=== PATIENT | male | born 1955 | race Caucasian/White ===

== ENCOUNTER → 2018-07-20 09:12 | Outpatient (CLI) | payer OTHER, SELFPAY ==
--- NOTE | 2018-07-20 | DI.RAD.S_ITS ---
PROCEDURE: XR LUMBAR SPINE 2-3V INDICATIONS: LOWER BACK PAIN TECHNIQUE: 3 views of the lumbar spine were acquired. COMPARISON: None. FINDINGS: Bones: 5 [id number] vertebrae are present. There is mild levocurvature; otherwise normal bony alignment. No vertebral body compression fractures. No suspicious bony lesions. There is degenerative disc disease in lumbar spine, moderate to severe L3 L4, mild to moderate at L2-L3 and L5-S1. Soft tissues: Overlying bowel gas pattern is normal. No suspicious soft tissue calcifications. IMPRESSION: Degenerative disc disease in lumbar spine. Dictated by: Dionicio Muñoz M.D. on 07/20/2018 at 12:49 Approved by: Dionicio Muñoz M.D. on 07/20/2018 at 12:52
== END ==
PROVIDERS: PCP Internal Medicine; Visit Provider Chiropractor
DX: M54.5 Low back pain (principal); M51.36 Other intervertebral disc degeneration, lumbar region; M51.37 Other intervertebral disc degeneration, lumbosacral region
CPT/HCPCS: 72100

== ENCOUNTER → 2019-06-13 08:24 | Outpatient (CLI) | payer OTHER, SELFPAY ==
[2019-06-13 09:43] LABS: Add Manual Diff / Slide Review NO; Basophils Absolute Auto 0 /uL (0-100); Basophils Percent Auto 0.9 % (0-2); Eosinophils Absolute Auto 200 /uL (0-450); Eosinophils Percent Auto 3.2 % (2-4); Hematocrit 46.4 % (41-53); Lymphocytes Absolute Auto 2200 /uL (1100-4500); Lymphocytes Percent Auto 38.9 % (25-40); Mean Corpuscular HGB Conc 34.4 % (30-36); Mean Corpuscular Hemoglobin 30.3 PG (26-34); Monocytes Absolute Auto 500 /uL (0-900); Monocytes Percent Auto 8.8 % (3-14); Neutrophils Absolute Auto 2800 /uL (1500-7000); Neutrophils Percent Auto 48.2 % (50-75); Platelet Count 254 X10^3/uL (150-400); Red Blood Cell Count 5.27 X10^6/uL (4.5-5.9); Red Cell Distribution Width 13.5 % (11.6-14.8); White Blood Cell Count 5.8 X10^3/uL (4.5-11.0)
[2019-06-13 09:58] LABS: Hemoglobin A1C% w Est Avg Glu 5.3 % (4.0-6.0)
[2019-06-13 10:01] LABS: Alanine Aminotransferase 30 IU/L (21-72); Albumin 4.4 g/dL (3.5-5.0); Albumin Globulin Ratio 1.5 (1.0-2.8); Alkaline Phosphatase 62 U/L (38-126); Aspartate Aminotransferase 36 IU/L (17-59); BUN Creatinine Ratio 25.7 (6-22); Blood Urea Nitrogen 18 mg/dL (9-20); Calcium 8.9 mg/dL (8.4-10.2); Carbon Dioxide 29 mmol/L (22-32); Chloride 102 mmol/L (98-107); Cholesterol 276 mg/dL (140-199); Estimated Glomerular Filt Rate > 60.0 mL/min (>60); Globulin 2.9 g/dL (1.7-4.1); Glucose 97 mg/dL (80-110); HDL Cholesterol 35 mg/dL (40-60); HEMOLYSIS < 15 (0-50); LDL Cholesterol Calculated 206 mg/dL (<100); Potassium 3.7 mmol/L (3.4-5.1); Sodium 141 mmol/L (137-145); Total Protein 7.3 g/dL (6.3-8.2); Triglycerides 176 mg/dL (35-150)
== END ==
PROVIDERS: PCP Internal Medicine; Visit Provider Naturopath
DX: Z00.00 Encounter for general adult medical examination without abnormal findings (principal); E88.81 Metabolic syndrome and other insulin resistance
CPT/HCPCS: 36415; 80053; 80061; 83036; 85025

== ENCOUNTER 2020-06-21 09:08 | Emergency (ER) | payer OTHER, SELFPAY ==
[2020-06-21] VITALS (8 sets, daily range): BP systolic 140–187; BP diastolic 89–100; PULSE 53–66; RESP 12–20; TEMP 36.6–37.9; O2SAT 96–99; BMI 33.5
--- NOTE | 2020-06-21 09:16 | ED_ITS ---
HPI - General Adult General Chief complaint: Syncope Stated complaint: Syncope Time Seen by Provider: 06/21/20 09:08 Source: patient and EMS Mode of arrival: EMS Limitations: no limitations History of Present Illness HPI narrative: 64-year-old male brought in by EMS for evaluation of a syncopal episode and subsequent injuries related to falling. Patient states he was at his normal state health sitting at his kitchen table. He states that he started to not feel very well and somewhat lightheaded. He states the room was not spinning. He denied any other associated symptoms. The next thing that he knew he woke up on the ground. He did hit his face on the ground. He is not on blood thinners. No loss of bowel or bladder. Was not confused when he woke up. Unsure as to how long he was out but he thinks it was a fairly short period of time. Sustained a cut to the bridge of his nose. He was somewhat nauseous afterwards but he thought that was secondary to swallowing blood. Arrived by EMS not on a backboard not in a cervical collar. Related Data Home Medications Medication Instructions Recorded Confirmed meloxicam [Mobic] #0 04/06/16 Previous Rx's Medication Instructions Recorded amoxicillin-pot clavulanate 1 tab PO BID 7 Days #14 tab 06/21/20 [Augmentin] Allergies Allergy/AdvReac Type Severity Reaction Status Date / Time No Known Drug Allergies Allergy Verified 06/21/20 09:52 Review of Systems Constitutional Constitutional: Denies chills, Denies fever(s), Denies frequent falls and Denies headache(s) Eyes Eyes: Denies blurry vision, Denies exophthalmos, Denies change in vision and Denies diplopia ENT Ears, Nose, Mouth, and Throat: Denies dental pain, Denies vertigo, Reports dizziness, Denies headache(s), Reports epistaxis, Reports neck pain, Reports nose pain and Denies disequilibrium Cardiovascular Cardiovascular: Denies chest pain, Reports syncope and Denies dyspnea Respiratory Respiratory: Denies dyspnea Gastrointestinal Gastrointestinal: Denies abdominal pain, Denies change in bowel habits, Reports nausea and Denies vomiting Genitourinary Genitourinary: Denies dysuria Genitourinary: Denies dysuria Musculoskeletal Musculoskeletal: Denies abnormal gait, Denies arthralgias, Denies myalgias and Reports neck pain Integumentary/Breasts Comments: Cut to bridge of nose Neurologic Neurologic: Denies abnormal movements, Denies abnormal speech, Denies abnormal gait, Denies behavioral changes, Denies vertigo, Reports dizziness, Reports syncope, Denies frequent falls, Denies headache(s), Denies seizure-like activity and Denies disequilibrium Psychiatric Psychiatric: Denies anxiety and Denies behavioral changes Hematologic/Lymphatic Hematologic/Lymphatic: Denies easy bleeding and Denies easy bruising Allergic/Immunologic Allergic/Immunologic: Denies urticaria Patient History Medical History Hypertension (Acute) Social History marital status: lives independently: Yes Smoking Status: Never smoker Exam Initial Vital Signs Initial Vital Signs: Vital Signs Temperature 100.2 F H 06/21/20 09:24 Pulse Rate 65 06/21/20 09:24 Respiratory Rate 20 06/21/20 09:24 Blood Pressure 174/94 H 06/21/20 09:24 Pulse Oximetry 97 06/21/20 09:24 Const General: cooperative and comfortable Limitations: mental status not altered HENNH Head: normal to inspection and normocephalic Nose: septum normal, No epistaxis, No nasal discharge and other (Cut over bridge of nose) Mouth: oral mucosae normal and lip normal Eyes Pupils: PERRL Chest Chest: No crepitus and No tenderness Resp Effort & Inspection: normal respiratory effort Auscultation: clear to auscultation bilaterally Cardio Rate: regular rate Rhythm: regular rhythm GI Inspection: non-distended Palpation: soft and No firm Skin Lesions: no lesions Rashes: no rashes Neuro General: patient alert, patient awake and patient oriented x3 Cranial Nerves: CN's II-XI intact bilaterally Cognition: normal cognition Speech: speech normal Sensory Exam: no sensory deficits noted Extrem General: normal to inspection and capillary refill normal Psych Appearance: grossly normal and well kempt Scores GCS Harris coma scale eye opening: Spontaneous Susu coma scale verbal response: Orientated Harris coma scale motor response: Obey commands Susu coma scale total score: 15 Nexus Score for C-Spine Focal Neurologic deficit present: No Midline spinal tenderness present: Yes Altered level of conciousness present: No Intoxication present: No Distracting Injury Present: No Nexus Criteria for C-spine: 1 Course Orders Ordered: ED Orders 06/21/20 09:10 Complete Blood Count AUTO DIFF Stat Comprehensive Metabolic Panel Stat Ethanol (ETOH) Stat Lipase Stat Troponin & CK Cardiac Panel Stat 06/21/20 09:18 CT head/brain wo con Stat 06/21/20 09:19 CT cervical spine wo con Stat CT facial bones wo con Stat 06/21/20 09:20 EKG-12 Lead Stat Discontinued Medications Bacitracin (Bacitracin) 1 applic TOP NOW ONE Stop: 06/21/20 10:21 Sodium Chloride (Normal Saline 0.9%) 1,000 mls @ 1,000 mls/hr IV BOLUS ONE Stop: 06/21/20 10:16 Last Admin: 06/21/20 09:53 Dose: 1,000 mls/hr Documented by: GIA Vital Signs Vital signs: Vital Signs - 8 hr 06/21/20 09:24 06/21/20 10:00 Temperature 100.2 F H Pulse Rate 65 66 Respiratory Rate 20 18 Blood Pressure 174/94 H 140/89 Pulse Oximetry 97 96 Medical Decision Making Lab Data Lab results reviewed: Yes I reviewed the patient's lab results. Result diagrams: 06/21/20 09:10 06/21/20 09:10 Labs: Lab Results 06/21/20 06/21/20 Range/Units 09:10 09:10 WBC 7.9 (4.5-11.0) X10^3/uL RBC 5.28 (4.5-5.9) X10^6/uL Hgb 16.2 (13.5-17.5) g/dL Hct 46.6 (41-53) % MCV 88.2 (80-100) fL MCH 30.6 (26-34) PG MCHC 34.7 (30-36) % RDW 13.4 (11.6-14.8) % Plt Count 317 (150-400) X10^3/uL Neut % (Auto) 48.9 L (50-75) % Lymph % (Auto) 37.3 (25-40) % [place] % (Auto) 10.1 (3-14) % Eos % (Auto) 2.5 (2-4) % Baso % (Auto) 1.2 (0-2) % Neut # (Auto) 3900 (4523-4499) /uL Lymph # (Auto) 3000 (5691-5801) /uL [place] # (Auto) 800 (0-900) /uL Eos # (Auto) 200 (0-450) /uL Baso # (Auto) 100 (0-100) /uL Sodium 140 (137-145) mmol/L Potassium 3.8 (3.4-5.1) mmol/L Chloride 105 (98-107) mmol/L Carbon Dioxide 27 (22-32) mmol/L BUN 17 (9-20) mg/dL Creatinine 0.65 L (0.66-1.25) mg/dL Estimated GFR > 60.0 (>60) mL/min BUN/Creatinine Ratio 26.2 H (6-22) Glucose 107 (80-110) mg/dL Calcium 9.2 (8.4-10.2) mg/dL Total Bilirubin 0.8 (0.2-1.3) mg/dL AST 39 (17-59) IU/L ALT 34 (<50) IU/L Alkaline Phosphatase 66 (38-126) U/L Total Creatine Kinase 270 H (55-170) U/L CK-MB (CK-2) 2.97 H (<2.37) ng/mL CK-MB (CK-2) Rel Index 1.1 L (1.5-5.0) % Troponin I < 0.012 (0.01-0.034) ng/mL Total Protein 7.8 (6.3-8.2) g/dL Albumin 4.5 (3.5-5.0) g/dL Globulin 3.3 (1.7-4.1) g/dL Albumin/Globulin Ratio 1.4 (1.0-2.8) Lipase 54 (23-300) U/L Ethyl Alcohol < 10 ( - 10) mg/dL Imaging Data CT scan - head: Radiologist's Impression: [address] [address] [address] Scan Report Signed Patient: Ochoa Amin VMR#: [id number] : 8Acct:[id number] Age/Sex: 64 / MDate of Service: 06/21/20 Loc: ED Accession Number: [id number] Procedure: CT head/brain wo con Ordering Provider: Wilson Castillo D.O. PROCEDURE: CT HEAD/BRAIN WO CON INDICATIONS: Syncope TECHNIQUE: Noncontrast 4.5 mm thick angled axial sections acquired from the foramen magnum to the vertex, with coronal and sagittal reformats. For radiation dose reduction, the following was used: automated exposure control, adjustment of mA and/or kV according to patient size. COMPARISON: None. FINDINGS: Image quality: Excellent. CSF spaces: Basal cisterns are patent. No extra-axial fluid collections. The ventricles are symmetric in size and shape. Brain: No intracranial bleeds or masses. There is cerebral volume loss for age, with resultant ventricular and sulcal prominence. There are periventricular and deep white matter chronic small vessel ischemic changes. There is intracranial internal carotid artery atherosclerosis. Skull and face: Age-indeterminate, displaced bilateral nasal bone fractures. Calvarium appears intact, without suspicious lesions. Sinuses: Visualized sinuses and mastoids are clear. IMPRESSION: 1. CT head without acute intracranial abnormalities or acute calvarial fractures. Age-indeterminate, displaced nasal bone fractures. Recommend correlation with physical examination. 2. Age-related senescent changes and sequela of chronic small vessel ischemic disease. Dictated by: Bernardo Melendez M.D. on 06/21/2020 at 8:53 Approved by: Bernardo Melendez M.D. on 06/21/2020 at 8:54 CT face: Radiologist's Impression: [place] [address] CT Scan Report Signed Patient: Ochoa Amin R#: [id number] : 8Acct:[id number] Age/Sex: 64 / MDate of Service: 06/21/20 Loc: ED Accession Number: [id number] Procedure: CT facial bones wo con Ordering Provider: Wilson Castillo D.O. PROCEDURE: CT FACIAL BONES WO CON INDICATIONS: Fell and hit face TECHNIQUE: Noncontrast 2.5 mm thick axial images acquired from the mandible through the frontal sinuses, with coronal and sagittal reformatting. For radiation dose reduction, the following was used: automated exposure control, adjustment of mA and/or kV according to patient size. COMPARISON: None. FINDINGS: Image quality: Excellent. Bones and teeth: Orbital pierce are intact. Sinus pierce show no fracture or deformity. Comminuted fracture of the nasal bones bilaterally. No nasal septal fracture. Visualized portions of the mandible demonstrate no fractures or subluxation. Zygomatic arches are intact. Pterygoid plates are intact. Visualized portions of the skull base and auditory canals are intact. Sinuses: Small amount of layering fluid in the right maxillary sinus. Remainder of the paranasal sinuses appear clear. Mastoid air cells are well-aerated. Soft tissues: Paranasal soft tissue swelling. No masses, or fluid collections. No enlarged lymph nodes. No soft tissue lacerations or debris. Vascular: Visualized vascular structures appear normal in the absence of contrast. Bony vascular foramina and canals are intact. IMPRESSION: Comminuted bilateral nasal bone fractures with overlying soft tissue edema. Dictated by: Bernardo Melendez M.D. on 06/21/2020 at 8:55 Approved by: Bernardo Melendez M.D. on 06/21/2020 at 8:59 CT - cervical spine: Radiologist's Impression: [place] [address] CT Scan Report Signed Patient: Ochoa Amin VMR#: [id number] : 8Acct:[id number] Age/Sex: 64 / MDate of Service: 06/21/20 Loc: ED Accession Number: [id number] Procedure: CT cervical spine wo con Ordering Provider: Wilson Castillo D.O. PROCEDURE: CT CERVICAL SPINE WO CON INDICATIONS: Fell with midline neck pain TECHNIQUE: Noncontrast 3 mm thick sections acquired from the skull base to the T4 level. Sagittal and coronal reformats were then constructed. For radiation dose reduction, the following was used: automated exposure control, adjustment of mA and/or kV according to patient size. COMPARISON: None. FINDINGS: Image quality: Excellent. Bones: No acute fractures or dislocations. Craniocervical junction is intact. No acute compression fractures of the cervical spine. Straightening of cervical lordosis which may be due to patient positioning and/or concurrent muscle spasms. Moderate multilevel cervical spondylosis most severe at C4-5 through C6-7. There is moderate to severe spinal canal stenosis at C5-6 and C6-7. Visualized superior ribs are intact. Soft tissues: Prevertebral soft tissues are normal in thickness. No paravertebral hematomas. No apical pneumothoraces. IMPRESSION: Cervical spine without acute fracture or dislocation. Moderate multilevel cervical spondylosis. Dictated by: Bernardo Melendez M.D. on 06/21/2020 at 8:59 Approved by: Bernardo Melendez M.D. on 06/21/2020 at 9:02 ECG Data Attestation: I personally reviewed and interpreted this ECG as follows: Prior ECG tracings: not available for review Interpretation: EMS EKG shows sinus rhythm with a left axis deviation with a heart rate is 72 and a normal QRS and QTC Emergency department EKG Sinus bradycardia Ventricular rate of 59 Sinus arrhythmia Incomplete right bundle branch block Normal QRS Normal QTC Unchanged from EMS EKG MDM Narrative Medical decision making narrative: Patient was placed in a cervical collar upon arrival secondary to midline tenderness. This was subsequently removed after the negative CT of the C-spine. His head CT was unremarkable. Facial CT shows comminuted nasal bone fracture. He does have a small cut over the bridge of the nose that does appear to be superficial. Despite the fact that it does look superficial will send him home on antibiotics. He also has a very small laceration under his left eye that is very superficial needs no intervention here in the ER. His nasal septum is unremarkable. Patient is low risk by the [place] syncope risk score and also the [place] syncope Rule. It does not appear that the patient had a seizure. Low suspicion for CVA. Has had an unremarkable EKG and cardiac monitoring here in the ER. Systolic blood pressure never above 180 or less than 90. His QRS and QTC on the EKG unremarkable. He was given care instructions with regard to his nasal fractures and also the lacerations. He was instructed to contact his primary provider to discuss the indications for a Holter monitor. Is given return precautions. He expressed understanding and agreement. Discharge Plan Departure Patient Disposition: Home Clinical Impression: Syncope, Laceration of nose Fracture of nasal bones Qualifiers: Encounter type: initial encounter Instructions: DI for Syncope in Adults (Fainting), DI for Nose Fracture Activity Restrictions/Additional Instructions: Please take the antibiotics as directed. I do recommend that you place ice over the bridge of your nose. I would not be surprised if you develop black eyes/swelling over the next day or so. I also recommend that you talk with her primary doctor about obtaining a Holter monitor for further evaluation of your syncopal episode today. Return to the emergency department for any new or worsening symptoms Prescriptions: New amoxicillin-pot clavulanate [Augmentin] 875-125 mg tablet 1 tab PO BID 7 Days Qty: 14 RF: 0 No Action meloxicam [Mobic] 7.5 mg tablet Qty: 0 RF: 0 Referrals: Donte Zamorano MD [Primary Care Provider] -
--- NOTE | 2020-06-21 09:19 | DI.CT.S_ITS ---
PROCEDURE: CT CERVICAL SPINE WO CON INDICATIONS: Fell with midline neck pain TECHNIQUE: Noncontrast 3 mm thick sections acquired from the skull base to the T4 level. Sagittal and coronal reformats were then constructed. For radiation dose reduction, the following was used: automated exposure control, adjustment of mA and/or kV according to patient size. COMPARISON: None. FINDINGS: Image quality: Excellent. Bones: No acute fractures or dislocations. Craniocervical junction is intact. No acute compression fractures of the cervical spine. Straightening of cervical lordosis which may be due to patient positioning and/or concurrent muscle spasms. Moderate multilevel cervical spondylosis most severe at C4-5 through C6-7. There is moderate to severe spinal canal stenosis at C5-6 and C6-7. Visualized superior ribs are intact. Soft tissues: Prevertebral soft tissues are normal in thickness. No paravertebral hematomas. No apical pneumothoraces. IMPRESSION: Cervical spine without acute fracture or dislocation. Moderate multilevel cervical spondylosis. Dictated by: Bernardo Melendez M.D. on 06/21/2020 at 8:59 Approved by: Bernardo Melendez M.D. on 06/21/2020 at 9:02
--- NOTE | 2020-06-21 09:19 | DI.CT.S_ITS ---
PROCEDURE: CT FACIAL BONES WO CON INDICATIONS: Fell and hit face TECHNIQUE: Noncontrast 2.5 mm thick axial images acquired from the mandible through the frontal sinuses, with coronal and sagittal reformatting. For radiation dose reduction, the following was used: automated exposure control, adjustment of mA and/or kV according to patient size. COMPARISON: None. FINDINGS: Image quality: Excellent. Bones and teeth: Orbital pierce are intact. Sinus pierce show no fracture or deformity. Comminuted fracture of the nasal bones bilaterally. No nasal septal fracture. Visualized portions of the mandible demonstrate no fractures or subluxation. Zygomatic arches are intact. Pterygoid plates are intact. Visualized portions of the skull base and auditory canals are intact. Sinuses: Small amount of layering fluid in the right maxillary sinus. Remainder of the paranasal sinuses appear clear. Mastoid air cells are well-aerated. Soft tissues: Paranasal soft tissue swelling. No masses, or fluid collections. No enlarged lymph nodes. No soft tissue lacerations or debris. Vascular: Visualized vascular structures appear normal in the absence of contrast. Bony vascular foramina and canals are intact. IMPRESSION: Comminuted bilateral nasal bone fractures with overlying soft tissue edema. Dictated by: Bernardo Melendez M.D. on 06/21/2020 at 8:55 Approved by: Bernardo Melendez M.D. on 06/21/2020 at 8:59
[2020-06-21 09:31] LABS: Add Manual Diff / Slide Review NO; Basophils Absolute Auto 100 /uL (0-100); Basophils Percent Auto 1.2 % (0-2); Eosinophils Absolute Auto 200 /uL (0-450); Eosinophils Percent Auto 2.5 % (2-4); Hematocrit 46.6 % (41-53); Hemoglobin 16.2 g/dL (13.5-17.5); Lymphocytes Absolute Auto 3000 /uL (1100-4500); Lymphocytes Percent Auto 37.3 % (25-40); Mean Corpuscular HGB Conc 34.7 % (30-36); Mean Corpuscular Hemoglobin 30.6 PG (26-34); Mean Corpuscular Volume 88.2 fL (80-100); Monocytes Absolute Auto 800 /uL (0-900); Monocytes Percent Auto 10.1 % (3-14); Neutrophils Absolute Auto 3900 /uL (1500-7000); Neutrophils Percent Auto 48.9 % (50-75); Platelet Count 317 X10^3/uL (150-400); Red Blood Cell Count 5.28 X10^6/uL (4.5-5.9); Red Cell Distribution Width 13.4 % (11.6-14.8); White Blood Cell Count 7.9 X10^3/uL (4.5-11.0)
[2020-06-21 09:37] LABS: Alanine Aminotransferase 34 IU/L (<50); Albumin 4.5 g/dL (3.5-5.0); Albumin Globulin Ratio 1.4 (1.0-2.8); Alkaline Phosphatase 66 U/L (38-126); Aspartate Aminotransferase 39 IU/L (17-59); BUN Creatinine Ratio 26.2 (6-22); Bilirubin Total 0.8 mg/dL (0.2-1.3); Blood Urea Nitrogen 17 mg/dL (9-20); Calcium 9.2 mg/dL (8.4-10.2); Carbon Dioxide 27 mmol/L (22-32); Chloride 105 mmol/L (98-107); Creatine Kinase 270 U/L (55-170); Estimated Glomerular Filt Rate > 60.0 mL/min (>60); Ethanol (ETOH) < 10 mg/dL; Globulin 3.3 g/dL (1.7-4.1); Glucose 107 mg/dL (80-110); HEMOLYSIS < 15 (0-50); Lipase 54 U/L (23-300); Potassium 3.8 mmol/L (3.4-5.1); Sodium 140 mmol/L (137-145); Total Protein 7.8 g/dL (6.3-8.2)
[2020-06-21 09:48] LABS: Troponin I < 0.012 ng/mL (0.01-0.034)
[2020-06-21 09:51] LABS: CKMB % Relative Index 1.1 % (1.5-5.0); Creatine Kinase MB 2.97 ng/mL (<2.37)
[2020-06-21] MEDS: SODIUM CHLORIDE 0.9% 1,000 ML 1000 ML IV (09:53)
[2020-06-21] MEDS: BACITRACIN OINT 0.9 GM PCKT 1 APPLIC TOP (10:53)
== END 2020-06-21 11:26 | disposition home or self-care (01) ==
PROVIDERS: Emergency Provider Emergency Medicine; PCP Internal Medicine; Referring Provider Naturopath
DX: S01.21XA Laceration without foreign body of nose, initial encounter (principal); S02.2XXA Fracture of nasal bones, initial encounter for closed fracture; R04.0 Epistaxis; R42 Dizziness and giddiness; I10 Essential (primary) hypertension; R55 Syncope and collapse; R07.9 Chest pain, unspecified; W19.XXXA Unspecified fall, initial encounter
CPT/HCPCS: 36415; 70450; 70486; 72125; 80053; 80320; 82550; 82553; 83690; 84484; 85025; 93005; 96360; 99284; 99285

== ENCOUNTER → 2020-06-26 10:15 | Outpatient (CLI) | payer OTHER, SELFPAY ==
[2020-06-26 11:53] LABS: Add Manual Diff / Slide Review NO; Basophils Absolute Auto 0 /uL (0-100); Basophils Percent Auto 0.6 % (0-2); Eosinophils Absolute Auto 100 /uL (0-450); Eosinophils Percent Auto 2.3 % (2-4); Hematocrit 44.9 % (41-53); Hemoglobin 15.3 g/dL (13.5-17.5); Lymphocytes Absolute Auto 2100 /uL (1100-4500); Mean Corpuscular HGB Conc 34.1 % (30-36); Mean Corpuscular Volume 88.2 fL (80-100); Monocytes Absolute Auto 600 /uL (0-900); Monocytes Percent Auto 9.5 % (3-14); Neutrophils Absolute Auto 3300 /uL (1500-7000); Neutrophils Percent Auto 53.6 % (50-75); Platelet Count 266 X10^3/uL (150-400); Red Blood Cell Count 5.09 X10^6/uL (4.5-5.9); Red Cell Distribution Width 13.8 % (11.6-14.8); White Blood Cell Count 6.1 X10^3/uL (4.5-11.0)
[2020-06-26 11:58] LABS: Hemoglobin A1C% w Est Avg Glu 5.4 % (4.0-6.0)
[2020-06-26 12:05] LABS: Alanine Aminotransferase 35 IU/L (<50); Albumin 4.3 g/dL (3.5-5.0); Albumin Globulin Ratio 1.4 (1.0-2.8); Alkaline Phosphatase 71 U/L (38-126); Aspartate Aminotransferase 38 IU/L (17-59); BUN Creatinine Ratio 24.2 (6-22); Blood Urea Nitrogen 15 mg/dL (9-20); Carbon Dioxide 30 mmol/L (22-32); Chloride 104 mmol/L (98-107); Cholesterol 250 mg/dL (140-199); Estimated Glomerular Filt Rate > 60.0 mL/min (>60); Globulin 3.1 g/dL (1.7-4.1); Glucose 93 mg/dL (80-110); HDL Cholesterol 40 mg/dL (40-60); HEMOLYSIS < 15 (0-50); LDL Cholesterol Calculated 172 mg/dL (<100); Potassium 4.2 mmol/L (3.4-5.1); Sodium 138 mmol/L (137-145); Total Protein 7.4 g/dL (6.3-8.2); Triglycerides 191 mg/dL (35-150)
[2020-06-26 12:48] LABS: TSH w/ Reflex to FT4 2.43 uIU/mL (0.47-4.68)
== END ==
PROVIDERS: PCP Family Medicine; Referring Provider Family Medicine; Visit Provider Family Medicine
DX: R55 Syncope and collapse (principal); G47.30 Sleep apnea, unspecified
CPT/HCPCS: 36415; 80053; 80061; 83036; 84443; 85025

== ENCOUNTER → 2020-10-27 10:23 | Outpatient (CLI) | payer OTHER, SELFPAY ==
--- NOTE | 2020-10-27 10:24 | DI.RAD.S_ITS ---
PROCEDURE: XR HAND LT MIN 3V INDICATIONS: fall, 5th metacarpal pain, r/o fx TECHNIQUE: 3 views of the hand(s) acquired. COMPARISON: None. FINDINGS: Bones: No definite acute fractures or dislocations. Carpal bones are normally aligned. Osteoarthritic changes are noted throughout MCP joints and interphalangeal joints. No suspicious bony lesions. Soft tissues: No suspicious soft tissue calcifications. IMPRESSION: No definite acute left hand fracture or dislocation. Mild left hand joint osteoarthritis. Dictated by: Amaury Potter M.D. on 10/27/2020 at 9:51 Approved by: Amaury Potter M.D. on 10/27/2020 at 10:00
--- NOTE | 2020-10-27 10:24 | DI.RAD.S_ITS ---
PROCEDURE: XR WRIST LT MIN 3V INDICATIONS: fall, 5th metacarpal pain, r/o fx TECHNIQUE: 4 views of the wrist were acquired. COMPARISON: None. FINDINGS: Bones: No acute fractures or dislocations. Osteoarthritic changes throughout wrist joints are seen. Likely old healed injury involving ulnar aspect of distal radius adjacent to distal radial ulnar joint is noted with well corticated fragment. No suspicious bony lesions. Scaphoid view: No definite scaphoid fracture or avascular necrosis. Soft tissues: No suspicious soft tissue calcifications. IMPRESSION: No definite acute left wrist fracture or dislocation. Wrist joint osteoarthritis as above. Mild wrist soft tissue swelling. Dictated by: Amaury Potter M.D. on 10/27/2020 at 10:00 Approved by: Amaury Potter M.D. on 10/27/2020 at 10:03
== END ==
PROVIDERS: PCP Family Medicine; Referring Provider Physician Assistant; Visit Provider Physician Assistant
DX: S69.92XA Unspecified injury of left wrist, hand and finger(s), initial encounter (principal); M19.042 Primary osteoarthritis, left hand; M19.032 Primary osteoarthritis, left wrist; W19.XXXA Unspecified fall, initial encounter
CPT/HCPCS: 73110; 73130

== ENCOUNTER → 2021-07-27 09:01 | Outpatient (CLI) | payer OTHER, SELFPAY ==
[2021-07-27 12:24] LABS: Add Manual Diff / Slide Review NO; Basophils Absolute Auto 0 /uL (0-100); Basophils Percent Auto 0.7 % (0-2); Eosinophils Absolute Auto 100 /uL (0-450); Eosinophils Percent Auto 2.6 % (2-4); Hematocrit 45.3 % (41-53); Hemoglobin 15.4 g/dL (13.5-17.5); Lymphocytes Absolute Auto 1600 /uL (1100-4500); Mean Corpuscular HGB Conc 34.1 % (30-36); Mean Corpuscular Hemoglobin 29.8 PG (26-34); Mean Corpuscular Volume 87.5 fL (80-100); Monocytes Absolute Auto 500 /uL (0-900); Monocytes Percent Auto 9.7 % (3-14); Neutrophils Absolute Auto 2600 /uL (1500-7000); Platelet Count 264 X10^3/uL (150-400); Red Blood Cell Count 5.18 X10^6/uL (4.5-5.9); Red Cell Distribution Width 13.5 % (11.6-14.8); White Blood Cell Count 4.8 X10^3/uL (4.5-11.0)
[2021-07-27 13:37] LABS: Cholesterol 289 mg/dL (140-199); HDL Cholesterol 42 mg/dL (40-60); LDL Cholesterol Calculated 215 mg/dL (<100); Triglycerides 161 mg/dL (35-150)
[2021-07-27 14:50] LABS: Hemoglobin A1C% w Est Avg Glu 5.1 % (4.0-6.0)
[2021-07-29 20:45] LABS: Alanine Aminotransferase 35 IU/L (<50); Albumin 4.4 g/dL (3.5-5.0); Albumin Globulin Ratio 1.4 (1.0-2.8); Alkaline Phosphatase 63 U/L (38-126); Aspartate Aminotransferase 89 IU/L (17-59); BUN Creatinine Ratio 22.7 (6-22); Bilirubin Total 0.8 mg/dL (0.2-1.3); Blood Urea Nitrogen 17 mg/dL (9-20); Calcium 9.2 mg/dL (8.4-10.2); Carbon Dioxide 25 mmol/L (22-32); Chloride 106 mmol/L (98-107); Estimated Glomerular Filt Rate > 60.0 mL/min (>60); Globulin 3.2 g/dL (1.7-4.1); Glucose 75 mg/dL (80-110); HEMOLYSIS 15 (0-50); Potassium 4.5 mmol/L (3.4-5.1); Sodium 141 mmol/L (137-145); Total Protein 7.6 g/dL (6.3-8.2)
== END ==
PROVIDERS: PCP Family Medicine; Referring Provider Naturopath; Visit Provider Naturopath
DX: Z00.00 Encounter for general adult medical examination without abnormal findings (principal); E78.5 Hyperlipidemia, unspecified; I10 Essential (primary) hypertension
CPT/HCPCS: 36415; 80053; 80061; 83036; 85025

== ENCOUNTER 2022-07-28 09:00 | Outpatient (RCR) | payer OTHER, SELFPAY ==
--- NOTE | 2022-02-17 18:01 | PT.OIE ---
Current Diagnoses Synovitis and tenosynovitis, unspecified (02/17/22) Past Medical History (Last Reviewed 04/25/21 @ 12:03 by RADHA Heath) Contusion of hand, left Fall Hand injury Hyperlipidemia Hypertension Sleep apnea Visit Care Team Role Provider Type Cecy Dye ND Family Provider Non-Staff Primary Care Provider Specialty: Naturopathy Address: [address] [place] [address], [id number] Email: Nick Erazo MD Attending Provider Non-Staff Referring Provider Specialty: Orthopedic Surgery Address: [address] [place] [address], [phone] Fax: Email: Physical Therapy Initial Evaluation PT-OP-A Visit Information Start: 02/16/22 13:19 Freq: Status: Active Protocol: Document 02/17/22 16:04 [facility] (Rec: 02/17/22 16:56 [facility] [id number]) Out-Patient Physical Therapy Visit Information Visit Information Visit Type Initial Evaluation Visit Start Time 16:05 Visit Stop Time 16:50 Total Visit Minutes 45 Visit Number 1 Number of NURSING FACULTY Visits 0 PT-OP-B Current Condition Start: 02/16/22 13:19 Freq: Status: Active Protocol: Document 02/17/22 16:04 [facility] (Rec: 02/17/22 16:56 [facility] [id number]) Current Condition History of Current Condition Onset Date foot Mar, buttocks 3 weeks ago Current Complaints LBP, R buttocks, R>L foot pain History of Current Condition Pt reports he has foot pain and LBP/buttocks pain. He feels like the buttocks pain is a result of how he walks d/ t foot pain. Pt reports foot pain started at the end of Mar when golfing. That is his front foot and he rotates over it and that started it and it has persisted since then. 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 He has used birkenstocks w/good help, MT pads w/o help, tried birkenstock shoes but they are pain. HOkas are pretty good. He has not been doing hiking, but has been doing a lot of walking around yard/area. He can't ride his road bike when cleated in because it hurts his foot. HIs mtn bike doesn't hurt as much but still some especailly w/ long hills but he hasn't been doing that recenlty. Onset of R buttocks pain about 3 weeks ago. the last couple months he has noticed tailbone pain when rowing. no recent falls on tailbone. Pt has a slight curvature in low back. Prior Treatments and Tests Chiro for LBP/buttocks pain- saw chiro that helped; Went to (did a bout of Advil and that helped some but still bothersome) Lumbar xray 2018:IMPRESSION: Degenerative disc disease in lumbar spine.; also noted mild levocurvature Treatment Goals Patient/Caregiver Goals Be able to ride, walk, stand to function normally PT-OP-C Subjective Start: 02/16/22 13:19 Freq: Status: Active Protocol: Document 02/17/22 16:04 [facility] (Rec: 02/17/22 16:56 [facility] [id number]) Patient Questionnaires Foot & Ankle Ability Measure- ADL and Sports FAAM-ADL Score 57/84 FAAM-Sport Score 6/27 Lower Extremity Functional Scale LEFS Score 61/80 OP-PT Pain Assessment Location foot pain Pain Location Details R 2nd toe to 5th toe as gets worse on ball of foot Scale Used worst 8/10 Description Aching Description- Other feel swollen, almost like clicking or cartilage feeling Frequency Intermittent Pain Duration can dec pain in couple min w/ stop & rub Radiating Location arch itches like crazy Variations/Patterns some tenderness of top Other Pain Aggravating Factors first in AM, biking in cleat, Pain Alleviating Factors Cold,Sitting,Massage R hip Pain Location Details post buttocks, R>L LBp Scale Used worst 8/10 Description- Other stiffness in LB, leg feels like give out, someone digging in w/elbow Frequency Intermittent Pain Aggravating Factors Sitting Other Pain Aggravating Factors in AM, move from sitting(donta off couch), foot catching on things Pain Alleviating Factors Cold Other Pain Alleviating Factors walking, hooklying, R S/L PT-OP-F Manual Assessment Start: 02/16/22 13:19 Freq: Status: Active Protocol: Document 02/17/22 16:04 [facility] (Rec: 02/17/22 16:56 [facility] [id number]) Manual Assessments Joint Mobility Assessment Joint Mobility Assessment L iliac crest higher, equal greater trocahnter, IR R femur , IR B tibia, varus R rearfoot >L, valgus B big toe, supinated R foot PT-OP-G Mobility & Gait Start: 02/16/22 13:19 Freq: Status: Active Protocol: Document 02/17/22 16:04 [facility] (Rec: 02/17/22 16:56 [facility] [id number]) OP Gait Assessment Comments Gait Comments Dec stance time on R side and dec push off PT-OP-J Posture/Palpation/Skin Start: 02/16/22 13:19 Freq: Status: Active Protocol: Document 02/17/22 16:04 [facility] (Rec: 02/17/22 16:56 [facility] [id number]) Posture Evaluation [facility] Postural Classification System [facility] Postural Classifications Posterior/Anterior Vertebral Compression Test 0 Lumbar Protective Mechanism Left AP 2 Lumbar Protective Mechanism Right AP 0 Lumbar Protective Mechanism Left PA 5 Lumbar Protective Mechanism Right PA 2 PT-OP-K Range of Motion Start: 02/16/22 13:19 Freq: Status: Active Protocol: Document 02/17/22 16:04 [facility] (Rec: 02/17/22 16:56 [facility] [id number]) Lumbar Spine Range of Motion Lumbar Spine Active Degrees Flexion 55 Extension 20 Rotation Left 52 Rotation Right 35 Lateral Flexion Left 19 Lateral Flexion Right 12 Comments pain R w/R SB & rot Ankle and Foot Goniometric Range of Motion Ankle and Foot Right Active Dorsiflexion with Knee Flexed 11 Dorsiflexion with Knee Extended 2 Plantarflexion 59 Left Active Dorsiflexion with Knee Flexed 8 Dorsiflexion with Knee Extended 4 Plantarflexion 58 PT-OP-L Special Tests Start: 02/16/22 13:19 Freq: Status: Active Protocol: Document 02/17/22 16:04 [facility] (Rec: 02/17/22 16:56 [facility] [id number]) Special Tests Lumbar Spine Special Tests Berta's Test Results positive R Straight Leg Raise Test Results impingement in R hip during, WNL HS Comments hip flex to 95 on R w/pain, L no pain 110 Slump Test Results slight inc pull R w/neck flex, less on L PT-OP-M Strength Start: 02/16/22 13:19 Freq: Status: Active Protocol: Document 02/17/22 16:04 [facility] (Rec: 02/17/22 16:56 [facility] [id number]) Hip Strength Hip Manual Muscle Testing Right Flexion (L2) 4- Good- Extension (S1) 4 Good Abduction 4+ Good+ External Rotation 4 Good Internal Rotation 4+ Good+ Left Flexion (L2) 4- Good- Extension (S1) 4+ Good+ Abduction 5 Normal External Rotation 5 Normal Internal Rotation 5 Normal Knee Strength Knee Manual Muscle Testing Right Flexion (S2) 5 Normal Extension (L3) 5 Normal Left Flexion (S2) 5 Normal Extension (L3) 5 Normal Ankle/Foot Strength Ankle and Foot Manual Muscle Testing Right Dorsiflexion (L4) 5 Normal Plantarflexion (S1) 3+ Fair+ Inversion 5 Normal Eversion (S1) 5 Normal Comments 5 heel raises (stopped d/t pain in foot) Left Dorsiflexion (L4) 5 Normal Plantarflexion (S1) 5 Normal Inversion 5 Normal Eversion (S1) 5 Normal Comments big toe flex/ext B 5/5; 20 heel raises (hurts under ball of foot) PT-OP-T Assessment and Plan Start: 02/16/22 13:19 Freq: Status: Active Protocol: Document 02/17/22 16:04 [facility] (Rec: 02/17/22 16:56 [facility] [id number]) Physical Therapy Assessment Rehab Potential Rehabilitation Potential Good Evaluation Complexity Number of Personal Factors/Comorbidities 3 or More Number of Body Systems Impaired 4 or More Clinical Presentation at Evaluation Evolving Impairments Impairments Activity Tolerance,Balance, Functional Activities, Functional Mobility,Gait,Pain, Posture,ROM,Soft Tissue Mobility,Strength Goals activity Short Term Goal (STG) Pt will be able to stand when needed throughout the day w/o inc foot pain STG Duration 05/20/22 Correction Goal (LTG) Pt will be able to fully return to hiking, biking, and walking w/o inc pain in R buttocks, LBP or R foot. LTG Duration 05/20/22 ROM Short Term Goal (STG) Pt will have full R hip flex w /o inc pain STG Duration 04/15/22 Correction Goal (LTG) Pt will have improved lumbar motion including full R SB and rotation equal to other side. LTG Duration 05/17/22 strength Short Term Goal (STG) Pt will be indep w/HEP to help manage symptoms at home. STG Duration 04/04/22 [employer] Goal (LTG) Pt will score at least 4/5 on LPM into all planes and 5/5 on all MMT including PF strength to show improved strength to improve gait mechanics. LTG Duration 05/20/22 FAAM Impairment 57/84 Short Term Goal (STG) Pt will improve score to at least 67/84 to show improved functional ability. STG Duration 04/13/22 Correction Goal (LTG) Pt will improve score to at least 77/84 to show improved functional ability. LTG Duration 05/20/22 Assessment Summary Assessment Pt presents w/R foot pain mostly on plantar surface of foot at head of 2nd MT mostly w/standing in place and w/ change in position to WB motion. This started 10-11 months ago and has persisted w /mild relief w/Advil regimine early on. In the past 3 weeks, he started to have R buttocks pain which has further limited his mobility. He has not hiked as much d/t his foot pain and at this time is limping w/dec push off and WB on RLE which likely contributed to the R hip pain. Pt would benefit from skilled PT in oder to dec R foot and R hip pain and dec LBP overall in order to return pt to more functional mobility allowing him to continue his active lifestyle. Physical Therapy Plan Frequency and Duration Frequency of Treatment 1-2x/week Duration of Treatment 3 months Plan of Care Start Date 02/17/22 Plan of Care End Date 05/20/22 Therapeutic Interventions Therapeutic Interventions Aquatic Therapy,Balance Training,Gait Training,Home Exercise Program,Joint Mobilizations,Manual Therapy, Neuromuscular Re-education, Orthotic/Prosthetic Management ,Patient/Caregiver Education, Self-Care/Home Management,Soft Tissue Mobilization,Taping, Therapeutic Activities, Therapeutic Exercises Modalities Cold Pack/Ice Massage,Electric Stimulation,Hot Packs, Infrared Therapy,Iontophoresis ,Traction- Mechanical, Ultrasound Next Visit Focus/Plan Next Note Type Treatment Note Next Visit Plan R hip iliacus/psoas STM, inf glide, hip on axis pelvis mob, hip stretches for HEP, start core work in supine, side steps B, plantar fascia stretch, joint mobs to R foot
--- NOTE | 2022-02-17 18:01 | PT.OPPOC ---
Physical, Occupational & Speech Therapy At [facility] Current Diagnoses Synovitis and tenosynovitis, unspecified (02/17/22) Visit Care Team Role Provider Type Cecy Dye ND Family Provider Non-Staff Primary Care Provider Specialty: Naturopathy Address: [address] [place] [address], [employer] Email: Nick Erazo MD Attending Provider Non-Staff Referring Provider Specialty: Orthopedic Surgery Address: [address] [place], [address] Fax: Email: Plan Of Care PT-OP-T Assessment and Plan Start: 02/16/22 13:19 Freq: Status: Active Protocol: Document 02/17/22 16:04 [facility] (Rec: 02/17/22 16:56 [facility] [id number]) Physical Therapy Assessment Rehab Potential Rehabilitation Potential Good Evaluation Complexity Number of Personal Factors/Comorbidities 3 or More Number of Body Systems Impaired 4 or More Clinical Presentation at Evaluation Evolving Impairments Impairments Activity Tolerance,Balance, Functional Activities, Functional Mobility,Gait,Pain, Posture,ROM,Soft Tissue Mobility,Strength Goals activity Short Term Goal (STG) Pt will be able to stand when needed throughout the day w/o inc foot pain STG Duration 05/20/22 Waybill Clerk Goal (LTG) Pt will be able to fully return to hiking, biking, and walking w/o inc pain in R buttocks, LBP or R foot. LTG Duration 05/20/22 ROM Short Term Goal (STG) Pt will have full R hip flex w /o inc pain STG Duration 04/15/22 Waybill Clerk Goal (LTG) Pt will have improved lumbar motion including full R SB and rotation equal to other side. LTG Duration 05/17/22 strength Short Term Goal (STG) Pt will be indep w/HEP to help manage symptoms at home. STG Duration 04/04/22 [facility] Goal (LTG) Pt will score at least 4/5 on LPM into all planes and 5/5 on all MMT including PF strength to show improved strength to improve gait mechanics. LTG Duration 05/20/22 FAAM Impairment 57/84 Short Term Goal (STG) Pt will improve score to at least 67/84 to show improved functional ability. STG Duration 04/13/22 [facility] Goal (LTG) Pt will improve score to at least 77/84 to show improved functional ability. LTG Duration 05/20/22 Assessment Summary Assessment Pt presents w/R foot pain mostly on plantar surface of foot at head of 2nd MT mostly w/standing in place and w/ change in position to WB motion. This started 10-11 months ago and has persisted w /mild relief w/Advil regimine early on. In the past 3 weeks, he started to have R buttocks pain which has further limited his mobility. He has not hiked as much d/t his foot pain and at this time is limping w/dec push off and WB on RLE which likely contributed to the R hip pain. Pt would benefit from skilled PT in oder to dec R foot and R hip pain and dec LBP overall in order to return pt to more functional mobility allowing him to continue his active lifestyle. Physical Therapy Plan Frequency and Duration Frequency of Treatment 1-2x/week Duration of Treatment 3 months Plan of Care Start Date 02/17/22 Plan of Care End Date 05/20/22 Therapeutic Interventions Therapeutic Interventions Aquatic Therapy,Balance Training,Gait Training,Home Exercise Program,Joint Mobilizations,Manual Therapy, Neuromuscular Re-education, Orthotic/Prosthetic Management ,Patient/Caregiver Education, Self-Care/Home Management,Soft Tissue Mobilization,Taping, Therapeutic Activities, Therapeutic Exercises Modalities Cold Pack/Ice Massage,Electric Stimulation,Hot Packs, Infrared Therapy,Iontophoresis ,Traction- Mechanical, Ultrasound Next Visit Focus/Plan Next Note Type Treatment Note Next Visit Plan R hip iliacus/psoas STM, inf glide, hip on axis pelvis mob, hip stretches for HEP, start core work in supine, side steps B, plantar fascia stretch, joint mobs to R foot Plan of Care Dates Plan of Care Start Date 02/17/22 Plan of Care End Date 05/20/22 Electronically Signed by: Amy Alanis, PT 02/17/22 6502 If you are in agreement with this Plan of Care, please return a signed and dated copy. I have reviewed this Plan of Care and certify that the skilled therapy services above are required to meet the patient?s needs. Physician Signature Date Printed Name and Credentials Clinical Instructor Signature Printed Name and Credentials
--- NOTE | 2022-03-03 10:00 | PT.OTN ---
Current Diagnoses Synovitis and tenosynovitis, unspecified (03/03/22) Physical Therapy Treatment Note PT-OP-A Visit Information Start: 02/16/22 13:19 Freq: Status: Active Protocol: Document 03/03/22 09:03 [facility] (Rec: 03/03/22 10:00 [facility] [id number]) Out-Patient Physical Therapy Visit Information Visit Information Visit Type Treatment Note Visit Start Time 09:05 Visit Stop Time 10:00 Total Visit Minutes 55 Visit Number 2 Number of NEWS CORRESPONDENT Visits 0 PT-OP-B Current Condition Start: 02/16/22 13:19 Freq: Status: Active Protocol: Document 02/17/22 16:04 [facility] (Rec: 02/17/22 16:56 [facility] [id number]) Current Condition History of Current Condition Onset Date foot Mar, buttocks 3 weeks ago Current Complaints LBP, R buttocks, R>L foot pain History of Current Condition Pt reports he has foot pain and LBP/buttocks pain. He feels like the buttocks pain is a result of how he walks d/ t foot pain. Pt reports foot pain started at the end of Mar when golfing. That is his front foot and he rotates over it and that started it and it has persisted since then. 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 He has used birkenstocks w/good help, MT pads w/o help, tried birkenstock shoes but they are pain. HOkas are pretty good. He has not been doing hiking, but has been doing a lot of walking around yard/area. He can't ride his road bike when cleated in because it hurts his foot. HIs mtn bike doesn't hurt as much but still some especailly w/ long hills but he hasn't been doing that recenlty. Onset of R buttocks pain about 3 weeks ago. the last couple months he has noticed tailbone pain when rowing. no recent falls on tailbone. Pt has a slight curvature in low back. Prior Treatments and Tests Chiro for LBP/buttocks pain- saw chiro that helped; Went to (did a bout of Advil and that helped some but still bothersome) Lumbar xray 2018:IMPRESSION: Degenerative disc disease in lumbar spine.; also noted mild levocurvature Treatment Goals Patient/Caregiver Goals Be able to ride, walk, stand to function normally PT-OP-C Subjective Start: 02/16/22 13:19 Freq: Status: Active Protocol: Document 03/03/22 09:03 [facility] (Rec: 03/03/22 10:00 [facility] [id number]) OP-PT Subjective Patient Comments Patient Comments pt reports doing a little better. NOtes being on a ladder was painful for foot PT-OP-F Manual Assessment Start: 02/16/22 13:19 Freq: Status: Active Protocol: Document 02/17/22 16:04 [facility] (Rec: 02/17/22 16:56 [facility] [id number]) Manual Assessments Joint Mobility Assessment Joint Mobility Assessment L iliac crest higher, equal greater trocahnter, IR R femur , IR B tibia, varus R rearfoot >L, valgus B big toe, supinated R foot PT-OP-G Mobility & Gait Start: 02/16/22 13:19 Freq: Status: Active Protocol: Document 02/17/22 16:04 [facility] (Rec: 02/17/22 16:56 [facility] [id number]) OP Gait Assessment Comments Gait Comments Dec stance time on R side and dec push off PT-OP-J Posture/Palpation/Skin Start: 02/16/22 13:19 Freq: Status: Active Protocol: Document 02/17/22 16:04 [facility] (Rec: 02/17/22 16:56 [facility] [id number]) Posture Evaluation [facility] Postural Classification System [facility] Postural Classifications Posterior/Anterior Vertebral Compression Test 0 Lumbar Protective Mechanism Left AP 2 Lumbar Protective Mechanism Right AP 0 Lumbar Protective Mechanism Left PA 5 Lumbar Protective Mechanism Right PA 2 PT-OP-K Range of Motion Start: 02/16/22 13:19 Freq: Status: Active Protocol: Document 02/17/22 16:04 [facility] (Rec: 02/17/22 16:56 [facility] [id number]) Lumbar Spine Range of Motion Lumbar Spine Active Degrees Flexion 55 Extension 20 Rotation Left 52 Rotation Right 35 Lateral Flexion Left 19 Lateral Flexion Right 12 Comments pain R w/R SB & rot Ankle and Foot Goniometric Range of Motion Ankle and Foot Right Active Dorsiflexion with Knee Flexed 11 Dorsiflexion with Knee Extended 2 Plantarflexion 59 Left Active Dorsiflexion with Knee Flexed 8 Dorsiflexion with Knee Extended 4 Plantarflexion 58 PT-OP-L Special Tests Start: 02/16/22 13:19 Freq: Status: Active Protocol: Document 02/17/22 16:04 [facility] (Rec: 02/17/22 16:56 [facility] [id number]) Special Tests Lumbar Spine Special Tests Berta's Test Results positive R Straight Leg Raise Test Results impingement in R hip during, WNL HS Comments hip flex to 95 on R w/pain, L no pain 110 Slump Test Results slight inc pull R w/neck flex, less on L PT-OP-M Strength Start: 02/16/22 13:19 Freq: Status: Active Protocol: Document 02/17/22 16:04 [facility] (Rec: 02/17/22 16:56 [facility] [id number]) Hip Strength Hip Manual Muscle Testing Right Flexion (L2) 4- Good- Extension (S1) 4 Good Abduction 4+ Good+ External Rotation 4 Good Internal Rotation 4+ Good+ Left Flexion (L2) 4- Good- Extension (S1) 4+ Good+ Abduction 5 Normal External Rotation 5 Normal Internal Rotation 5 Normal Knee Strength Knee Manual Muscle Testing Right Flexion (S2) 5 Normal Extension (L3) 5 Normal Left Flexion (S2) 5 Normal Extension (L3) 5 Normal Ankle/Foot Strength Ankle and Foot Manual Muscle Testing Right Dorsiflexion (L4) 5 Normal Plantarflexion (S1) 3+ Fair+ Inversion 5 Normal Eversion (S1) 5 Normal Comments 5 heel raises (stopped d/t pain in foot) Left Dorsiflexion (L4) 5 Normal Plantarflexion (S1) 5 Normal Inversion 5 Normal Eversion (S1) 5 Normal Comments big toe flex/ext B 5/5; 20 heel raises (hurts under ball of foot) PT-OP-Q Treatments Start: 02/16/22 13:19 Freq: Status: Active Protocol: Document 03/03/22 09:03 [facility] (Rec: 03/03/22 10:00 [facility] [id number]) Therapeutic Exercises Supine Exercises flex Supine Exercise Name B flex hip press Side bilateral Reps/Minutes 30 sec Sitting Exercises stretch Sitting Exercise Name plantar fascia Side bilateral Reps/Minutes 30 sec Standing Exercises sidesteps Side bilateral Equipment Used lvl 2 Reps/Minutes 20ft ea stretch Standing Exercise Name 1. calf on step 2. hip flexor Side bilateral Reps/Minutes 30 sec ea Manual Therapy Treatment Soft Tissue Mobilization lumbar Body Location ES/QL R>L Mobilization Type Rolling,Strumming Intensity/Depth Moderate Body Position Prone Joint Mobilizations cuneiform Joint R Direction gapping FM talus Joint R Direction distraction, AP FM calcaneus Joint R Direction distraction, lat glide FM innominate Joint R Direction gapping (IR) FM, caudal FM Body Position Prone hip Joint r Direction on axis IR FM Body Position Prone sacrum Joint caudal FM Body Position Prone PT-OP-T Assessment and Plan Start: 02/16/22 13:19 Freq: Status: Active Protocol: Document 03/03/22 09:03 [facility] (Rec: 03/03/22 10:00 [facility] [id number]) Physical Therapy Assessment Goals activity Short Term Goal (STG) Pt will be able to stand when needed throughout the day w/o inc foot pain STG Duration 05/20/22 Padding Machine Operator Goal (LTG) Pt will be able to fully return to hiking, biking, and walking w/o inc pain in R buttocks, LBP or R foot. LTG Duration 05/20/22 ROM Short Term Goal (STG) Pt will have full R hip flex w /o inc pain STG Duration 04/15/22 Padding Machine Operator Goal (LTG) Pt will have improved lumbar motion including full R SB and rotation equal to other side. LTG Duration 05/17/22 strength Short Term Goal (STG) Pt will be indep w/HEP to help manage symptoms at home. STG Duration 04/04/22 [employer]adding Machine Operator Goal (LTG) Pt will score at least 4/5 on LPM into all planes and 5/5 on all MMT including PF strength to show improved strength to improve gait mechanics. LTG Duration 05/20/22 FAAM Impairment 57/84 Short Term Goal (STG) Pt will improve score to at least 67/84 to show improved functional ability. STG Duration 04/13/22 Jail Goal (LTG) Pt will improve score to at least 77/84 to show improved functional ability. LTG Duration 05/20/22 Assessment Summary Assessment Pt did well with exercises and had no c/o pain, so given as written HEP. Imrpoved DF w/ foot mobs and improved R hip IR w/pelvis & hip mobs. Physical Therapy Plan Frequency and Duration Frequency of Treatment 1-2x/week Duration of Treatment 3 months Plan of Care Start Date 02/17/22 Plan of Care End Date 05/20/22 Next Visit Focus/Plan Next Note Type Treatment Note Next Visit Plan review exercises, cont to work on hip,pelvis and back mobility, cont to work on joint mobs to R foot-try standing mobs, go over hip hinge
--- NOTE | 2022-03-10 17:26 | PT.OTN ---
Current Diagnoses Synovitis and tenosynovitis, unspecified (03/10/22) Physical Therapy Treatment Note PT-OP-A Visit Information Start: 02/16/22 13:19 Freq: Status: Active Protocol: Document 03/10/22 17:21 [facility] (Rec: 03/10/22 17:25 [facility] [id number]) Out-Patient Physical Therapy Visit Information Visit Information Visit Type Treatment Note Visit Start Time 12:18 Visit Stop Time 13:00 Total Visit Minutes 42 Visit Number 3 Number of SCIENCE AND OPERATIONS OFFICER Visits 0 PT-OP-B Current Condition Start: 02/16/22 13:19 Freq: Status: Active Protocol: Document 02/17/22 16:04 [facility] (Rec: 02/17/22 16:56 [facility] [id number]) Current Condition History of Current Condition Onset Date foot Mar, buttocks 3 weeks ago Current Complaints LBP, R buttocks, R>L foot pain History of Current Condition Pt reports he has foot pain and LBP/buttocks pain. He feels like the buttocks pain is a result of how he walks d/ t foot pain. Pt reports foot pain started at the end of Mar when golfing. That is his front foot and he rotates over it and that started it and it has persisted since then. 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 He has used birkenstocks w/good help, MT pads w/o help, tried birkenstock shoes but they are pain. HOkas are pretty good. He has not been doing hiking, but has been doing a lot of walking around yard/area. He can't ride his road bike when cleated in because it hurts his foot. HIs mtn bike doesn't hurt as much but still some especailly w/ long hills but he hasn't been doing that recenlty. Onset of R buttocks pain about 3 weeks ago. the last couple months he has noticed tailbone pain when rowing. no recent falls on tailbone. Pt has a slight curvature in low back. 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 notes his R knee is sore likely from being on it a lot. Still R foot gets tight whenon it a lot PT-OP-F Manual Assessment Start: 02/16/22 13:19 Freq: Status: Active Protocol: Document 02/17/22 16:04 [facility] (Rec: 02/17/22 16:56 [facility] [id number]) Manual Assessments Joint Mobility Assessment Joint Mobility Assessment L iliac crest higher, equal greater trocahnter, IR R femur , IR B tibia, varus R rearfoot >L, valgus B big toe, supinated R foot PT-OP-G Mobility & Gait Start: 02/16/22 13:19 Freq: Status: Active Protocol: Document 02/17/22 16:04 [facility] (Rec: 02/17/22 16:56 [facility] [id number]) OP Gait Assessment Comments Gait Comments Dec stance time on R side and dec push off PT-OP-J Posture/Palpation/Skin Start: 02/16/22 13:19 Freq: Status: Active Protocol: Document 02/17/22 16:04 [facility] (Rec: 02/17/22 16:56 [facility] [id number]) Posture Evaluation Kary Postural Classification System Kary Postural Classifications Posterior/Anterior Vertebral Compression Test 0 Lumbar Protective Mechanism Left AP 2 Lumbar Protective Mechanism Right AP 0 Lumbar Protective Mechanism Left PA 5 Lumbar Protective Mechanism Right PA 2 PT-OP-K Range of Motion Start: 02/16/22 13:19 Freq: Status: Active Protocol: Document 02/17/22 16:04 [facility] (Rec: 02/17/22 16:56 [facility] [id number]) Lumbar Spine Range of Motion Lumbar Spine Active Degrees Flexion 55 Extension 20 Rotation Left 52 Rotation Right 35 Lateral Flexion Left 19 Lateral Flexion Right 12 Comments pain R w/R SB & rot Ankle and Foot Goniometric Range of Motion Ankle and Foot Right Active Dorsiflexion with Knee Flexed 11 Dorsiflexion with Knee Extended 2 Plantarflexion 59 Left Active Dorsiflexion with Knee Flexed 8 Dorsiflexion with Knee Extended 4 Plantarflexion 58 PT-OP-L Special Tests Start: 02/16/22 13:19 Freq: Status: Active Protocol: Document 02/17/22 16:04 [facility] (Rec: 02/17/22 16:56 [facility] [id number]) Special Tests Lumbar Spine Special Tests Berta's Test Results positive R Straight Leg Raise Test Results impingement in R hip during, WNL HS Comments hip flex to 95 on R w/pain, L no pain 110 Slump Test Results slight inc pull R w/neck flex, less on L PT-OP-M Strength Start: 02/16/22 13:19 Freq: Status: Active Protocol: Document 02/17/22 16:04 [facility] (Rec: 02/17/22 16:56 [facility] [id number]) Hip Strength Hip Manual Muscle Testing Right Flexion (L2) 4- Good- Extension (S1) 4 Good Abduction 4+ Good+ External Rotation 4 Good Internal Rotation 4+ Good+ Left Flexion (L2) 4- Good- Extension (S1) 4+ Good+ Abduction 5 Normal External Rotation 5 Normal Internal Rotation 5 Normal Knee Strength Knee Manual Muscle Testing Right Flexion (S2) 5 Normal Extension (L3) 5 Normal Left Flexion (S2) 5 Normal Extension (L3) 5 Normal Ankle/Foot Strength Ankle and Foot Manual Muscle Testing Right Dorsiflexion (L4) 5 Normal Plantarflexion (S1) 3+ Fair+ Inversion 5 Normal Eversion (S1) 5 Normal Comments 5 heel raises (stopped d/t pain in foot) Left Dorsiflexion (L4) 5 Normal Plantarflexion (S1) 5 Normal Inversion 5 Normal Eversion (S1) 5 Normal Comments big toe flex/ext B 5/5; 20 heel raises (hurts under ball of foot) PT-OP-Q Treatments Start: 02/16/22 13:19 Freq: Status: Active Protocol: Document 03/10/22 17:21 [facility] (Rec: 03/10/22 17:25 [facility] [id number]) Therapeutic Exercises Other Exercises self mob Other Exercise Name 1/2 kneel ankle mob AP Side right Equipment Used L4 band Reps/Minutes 10 Manual Therapy Treatment Soft Tissue Mobilization calf Body Location plantar fascia & calf R Mobilization Type Rolling,Strumming Intensity/Depth Moderate Joint Mobilizations tibfib Joint R distal Direction AP tib FM talus Joint R Direction distraction, AP, med glide FM calcaneus Joint R Direction distraction, lat & med glide FM innominate Joint R Direction IR FM Body Position Prone hip Joint r Direction on axis IR FM Body Position Prone PT-OP-T Assessment and Plan Start: 02/16/22 13:19 Freq: Status: Active Protocol: Document 03/10/22 17:21 [facility] (Rec: 03/10/22 17:25 [facility] [id number]) Physical Therapy Assessment Goals activity Short Term Goal (STG) Pt will be able to stand when needed throughout the day w/o inc foot pain STG Duration 05/20/22 Detention Goal (LTG) Pt will be able to fully return to hiking, biking, and walking w/o inc pain in R buttocks, LBP or R foot. LTG Duration 05/20/22 ROM Short Term Goal (STG) Pt will have full R hip flex w /o inc pain STG Duration 04/15/22 Fire Alarm Repairer Goal (LTG) Pt will have improved lumbar motion including full R SB and rotation equal to other side. LTG Duration 05/17/22 strength Short Term Goal (STG) Pt will be indep w/HEP to help manage symptoms at home. STG Duration 04/04/22 Detention Goal (LTG) Pt will score at least 4/5 on LPM into all planes and 5/5 on all MMT including PF strength to show improved strength to improve gait mechanics. LTG Duration 05/20/22 FAAM Impairment 57/84 Short Term Goal (STG) Pt will improve score to at least 67/84 to show improved functional ability. STG Duration 04/13/22 Detention Goal (LTG) Pt will improve score to at least 77/84 to show improved functional ability. LTG Duration 05/20/22 Assessment Summary Assessment pt had imrpoved R knee trackinga nd dec tibial IR during knee bendign w/manual treatment which should dec forces on foot. He still ahs stiffness in rearfoota nd would bneefit from cnt mobilization to imrpove foot mobility Physical Therapy Plan Frequency and Duration Frequency of Treatment 1-2x/week Duration of Treatment 3 months Plan of Care Start Date 02/17/22 Plan of Care End Date 05/20/22 Next Visit Focus/Plan Next Note Type Treatment Note Next Visit Plan review exercises, cont to work on hip,pelvis and back mobility, cont to work on joint mobs to R foot-try standing mobs, go over hip hinge
--- NOTE | 2022-03-30 18:05 | PT.OTN ---
Current Diagnoses Synovitis and tenosynovitis, unspecified (03/30/22) Physical Therapy Treatment Note PT-OP-A Visit Information Start: 02/16/22 13:19 Freq: Status: Active Protocol: Document 03/30/22 09:41 [facility] (Rec: 03/30/22 18:05 [facility] [id number]) Out-Patient Physical Therapy Visit Information Visit Information Visit Type Treatment Note Visit Start Time 09:48 Visit Stop Time 10:30 Total Visit Minutes 42 Visit Number 4 Number of COAGULATION OPERATOR Visits 0 PT-OP-B Current Condition Start: 02/16/22 13:19 Freq: Status: Active Protocol: Document 02/17/22 16:04 [facility] (Rec: 02/17/22 16:56 [facility] [id number]) Current Condition History of Current Condition Onset Date foot Mar, buttocks 3 weeks ago Current Complaints LBP, R buttocks, R>L foot pain History of Current Condition Pt reports he has foot pain and LBP/buttocks pain. He feels like the buttocks pain is a result of how he walks d/ t foot pain. Pt reports foot pain started at the end of Mar when golfing. That is his front foot and he rotates over it and that started it and it has persisted since then. 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 He has used birkenstocks w/good help, MT pads w/o help, tried birkenstock shoes but they are pain. HOkas are pretty good. He has not been doing hiking, but has been doing a lot of walking around yard/area. He can't ride his road bike when cleated in because it hurts his foot. HIs mtn bike doesn't hurt as much but still some especailly w/ long hills but he hasn't been doing that recenlty. Onset of R buttocks pain about 3 weeks ago. the last couple months he has noticed tailbone pain when rowing. no recent falls on tailbone. Pt has a slight curvature in low back. Prior Treatments and Tests Chiro for LBP/buttocks pain- saw chiro that helped; Went to (did a bout of Advil and that helped some but still bothersome) Lumbar xray 2018:IMPRESSION: Degenerative disc disease in lumbar spine.; also noted mild levocurvature Treatment Goals Patient/Caregiver Goals Be able to ride, walk, stand to function normally PT-OP-C Subjective Start: 02/16/22 13:19 Freq: Status: Active Protocol: Document 03/30/22 09:41 [facility] (Rec: 03/30/22 18:05 [facility] [id number]) OP-PT Subjective Patient Comments Patient Comments tp reports he got chacos and his feet have not hurt in them > he wore them and idd 12k steps one day PT-OP-F Manual Assessment Start: 02/16/22 13:19 Freq: Status: Active Protocol: Document 02/17/22 16:04 [facility] (Rec: 02/17/22 16:56 [facility] [id number]) Manual Assessments Joint Mobility Assessment Joint Mobility Assessment L iliac crest higher, equal greater trocahnter, IR R femur , IR B tibia, varus R rearfoot >L, valgus B big toe, supinated R foot PT-OP-G Mobility & Gait Start: 02/16/22 13:19 Freq: Status: Active Protocol: Document 02/17/22 16:04 [facility] (Rec: 02/17/22 16:56 [facility] [id number]) OP Gait Assessment Comments Gait Comments Dec stance time on R side and dec push off PT-OP-J Posture/Palpation/Skin Start: 02/16/22 13:19 Freq: Status: Active Protocol: Document 02/17/22 16:04 [facility] (Rec: 02/17/22 16:56 [facility] [id number]) Posture Evaluation Kary Postural Classification System Kary Postural Classifications Posterior/Anterior Vertebral Compression Test 0 Lumbar Protective Mechanism Left AP 2 Lumbar Protective Mechanism Right AP 0 Lumbar Protective Mechanism Left PA 5 Lumbar Protective Mechanism Right PA 2 PT-OP-K Range of Motion Start: 02/16/22 13:19 Freq: Status: Active Protocol: Document 02/17/22 16:04 [facility] (Rec: 02/17/22 16:56 [facility] [id number]) Lumbar Spine Range of Motion Lumbar Spine Active Degrees Flexion 55 Extension 20 Rotation Left 52 Rotation Right 35 Lateral Flexion Left 19 Lateral Flexion Right 12 Comments pain R w/R SB & rot Ankle and Foot Goniometric Range of Motion Ankle and Foot Right Active Dorsiflexion with Knee Flexed 11 Dorsiflexion with Knee Extended 2 Plantarflexion 59 Left Active Dorsiflexion with Knee Flexed 8 Dorsiflexion with Knee Extended 4 Plantarflexion 58 PT-OP-L Special Tests Start: 02/16/22 13:19 Freq: Status: Active Protocol: Document 02/17/22 16:04 [facility] (Rec: 02/17/22 16:56 [facility] [id number]) Special Tests Lumbar Spine Special Tests Berta's Test Results positive R Straight Leg Raise Test Results impingement in R hip during, WNL HS Comments hip flex to 95 on R w/pain, L no pain 110 Slump Test Results slight inc pull R w/neck flex, less on L PT-OP-M Strength Start: 02/16/22 13:19 Freq: Status: Active Protocol: Document 02/17/22 16:04 [facility] (Rec: 02/17/22 16:56 [facility] [id number]) Hip Strength Hip Manual Muscle Testing Right Flexion (L2) 4- Good- Extension (S1) 4 Good Abduction 4+ Good+ External Rotation 4 Good Internal Rotation 4+ Good+ Left Flexion (L2) 4- Good- Extension (S1) 4+ Good+ Abduction 5 Normal External Rotation 5 Normal Internal Rotation 5 Normal Knee Strength Knee Manual Muscle Testing Right Flexion (S2) 5 Normal Extension (L3) 5 Normal Left Flexion (S2) 5 Normal Extension (L3) 5 Normal Ankle/Foot Strength Ankle and Foot Manual Muscle Testing Right Dorsiflexion (L4) 5 Normal Plantarflexion (S1) 3+ Fair+ Inversion 5 Normal Eversion (S1) 5 Normal Comments 5 heel raises (stopped d/t pain in foot) Left Dorsiflexion (L4) 5 Normal Plantarflexion (S1) 5 Normal Inversion 5 Normal Eversion (S1) 5 Normal Comments big toe flex/ext B 5/5; 20 heel raises (hurts under ball of foot) PT-OP-Q Treatments Start: 02/16/22 13:19 Freq: Status: Active Protocol: Document 03/30/22 09:41 [facility] (Rec: 03/30/22 18:05 [facility] [id number]) Therapeutic Exercises Supine Exercises stretch Supine Exercise Name piriformis Side right Reps/Minutes 30 sec Sitting Exercises stretch Sitting Exercise Name plantar fascia Side bilateral Reps/Minutes 30 sec Standing Exercises sidesteps Side bilateral Equipment Used lvl 2 Reps/Minutes 10ft ea stretch Standing Exercise Name 1. calf on step 2. hip flexor Side bilateral Reps/Minutes 30 sec ea Other Exercises self release Other Exercise Name ball into buttocks & R foot self mob Other Exercise Name 1/2 kneel ankle mob AP Side right Equipment Used L4 band Reps/Minutes 10 Manual Therapy Treatment Soft Tissue Mobilization glutes Body Location R along sacral border Mobilization Type Strumming,Sustained Pressure Intensity/Depth Moderate Body Position Prone Joint Mobilizations innominate Joint R Direction IR, caudalFM hip Joint r Direction on axis IR, abd, ER FM sacrum Joint R Direction UPA FM & caudal FM PT-OP-T Assessment and Plan Start: 02/16/22 13:19 Freq: Status: Active Protocol: Document 03/30/22 09:41 [facility] (Rec: 03/30/22 18:05 [facility] [id number]) Physical Therapy Assessment Goals activity Short Term Goal (STG) Pt will be able to stand when needed throughout the day w/o inc foot pain STG Duration 05/20/22 Control Panel Builder Goal (LTG) Pt will be able to fully return to hiking, biking, and walking w/o inc pain in R buttocks, LBP or R foot. LTG Duration 05/20/22 ROM Short Term Goal (STG) Pt will have full R hip flex w /o inc pain STG Duration 04/15/22 Group Home Goal (LTG) Pt will have improved lumbar motion including full R SB and rotation equal to other side. LTG Duration 05/17/22 strength Short Term Goal (STG) Pt will be indep w/HEP to help manage symptoms at home. STG Duration 04/04/22 Control Panel Builder Goal (LTG) Pt will score at least 4/5 on LPM into all planes and 5/5 on all MMT including PF strength to show improved strength to improve gait mechanics. LTG Duration 05/20/22 FAAM Impairment 57/84 Short Term Goal (STG) Pt will improve score to at least 67/84 to show improved functional ability. STG Duration 04/13/22 Control Panel Builder Goal (LTG) Pt will improve score to at least 77/84 to show improved functional ability. LTG Duration 05/20/22 Assessment Summary Assessment Pt had imrpoved hip ER and abd after manual treatment. He did wellw ith exercises w/very min cues needed. Physical Therapy Plan Frequency and Duration Frequency of Treatment 1-2x/week Duration of Treatment 3 months Plan of Care Start Date 02/17/22 Plan of Care End Date 05/20/22 Next Visit Focus/Plan Next Note Type Treatment Note Next Visit Plan cont to work on hip,pelvis and back mobility, cont to work on joint mobs to R foot-try standing mobs, go over hip hinge
--- NOTE | 2022-04-01 15:57 | PT.OTN ---
Current Diagnoses Synovitis and tenosynovitis, unspecified (04/01/22) Physical Therapy Treatment Note PT-OP-A Visit Information Start: 02/16/22 13:19 Freq: Status: Active Protocol: Document 04/01/22 14:34 [facility] (Rec: 04/01/22 15:56 [facility] [id number]) Out-Patient Physical Therapy Visit Information Visit Information Visit Type Treatment Note Visit Start Time 14:33 Visit Stop Time 15:25 Total Visit Minutes 52 Visit Number 5 Number of MEDICAL OFFICE ASSISTANT Visits 0 PT-OP-B Current Condition Start: 02/16/22 13:19 Freq: Status: Active Protocol: Document 02/17/22 16:04 [facility] (Rec: 02/17/22 16:56 [facility] [id number]) Current Condition History of Current Condition Onset Date foot Mar, buttocks 3 weeks ago Current Complaints LBP, R buttocks, R>L foot pain History of Current Condition Pt reports he has foot pain and LBP/buttocks pain. He feels like the buttocks pain is a result of how he walks d/ t foot pain. Pt reports foot pain started at the end of Mar when golfing. That is his front foot and he rotates over it and that started it and it has persisted since then. 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 He has used birkenstocks w/good help, MT pads w/o help, tried birkenstock shoes but they are pain. HOkas are pretty good. He has not been doing hiking, but has been doing a lot of walking around yard/area. He can't ride his road bike when cleated in because it hurts his foot. HIs mtn bike doesn't hurt as much but still some especailly w/ long hills but he hasn't been doing that recenlty. Onset of R buttocks pain about 3 weeks ago. the last couple months he has noticed tailbone pain when rowing. no recent falls on tailbone. Pt has a slight curvature in low back. Prior Treatments and Tests Chiro for LBP/buttocks pain- saw chiro that helped; Went to (did a bout of Advil and that helped some but still bothersome) Lumbar xray 2018:IMPRESSION: Degenerative disc disease in lumbar spine.; also noted mild levocurvature Treatment Goals Patient/Caregiver Goals Be able to ride, walk, stand to function normally PT-OP-C Subjective Start: 02/16/22 13:19 Freq: Status: Active Protocol: Document 04/01/22 14:34 [facility] (Rec: 04/01/22 15:56 [facility] [id number]) OP-PT Subjective Patient Comments Patient Comments Pt reports he has a pair of sneakers he is trying today doing well. He was sore the day after session but better the next PT-OP-F Manual Assessment Start: 02/16/22 13:19 Freq: Status: Active Protocol: Document 02/17/22 16:04 [facility] (Rec: 02/17/22 16:56 [facility] [id number]) Manual Assessments Joint Mobility Assessment Joint Mobility Assessment L iliac crest higher, equal greater trocahnter, IR R femur , IR B tibia, varus R rearfoot >L, valgus B big toe, supinated R foot PT-OP-G Mobility & Gait Start: 02/16/22 13:19 Freq: Status: Active Protocol: Document 02/17/22 16:04 [facility] (Rec: 02/17/22 16:56 [facility] [id number]) OP Gait Assessment Comments Gait Comments Dec stance time on R side and dec push off PT-OP-J Posture/Palpation/Skin Start: 02/16/22 13:19 Freq: Status: Active Protocol: Document 02/17/22 16:04 [facility] (Rec: 02/17/22 16:56 [facility] [id number]) Posture Evaluation [facility] Postural Classification System Kary Postural Classifications Posterior/Anterior Vertebral Compression Test 0 Lumbar Protective Mechanism Left AP 2 Lumbar Protective Mechanism Right AP 0 Lumbar Protective Mechanism Left PA 5 Lumbar Protective Mechanism Right PA 2 PT-OP-K Range of Motion Start: 02/16/22 13:19 Freq: Status: Active Protocol: Document 02/17/22 16:04 [facility] (Rec: 02/17/22 16:56 [facility] [id number]) Lumbar Spine Range of Motion Lumbar Spine Active Degrees Flexion 55 Extension 20 Rotation Left 52 Rotation Right 35 Lateral Flexion Left 19 Lateral Flexion Right 12 Comments pain R w/R SB & rot Ankle and Foot Goniometric Range of Motion Ankle and Foot Right Active Dorsiflexion with Knee Flexed 11 Dorsiflexion with Knee Extended 2 Plantarflexion 59 Left Active Dorsiflexion with Knee Flexed 8 Dorsiflexion with Knee Extended 4 Plantarflexion 58 PT-OP-L Special Tests Start: 02/16/22 13:19 Freq: Status: Active Protocol: Document 02/17/22 16:04 [facility] (Rec: 02/17/22 16:56 [facility] [id number]) Special Tests Lumbar Spine Special Tests Berta's Test Results positive R Straight Leg Raise Test Results impingement in R hip during, WNL HS Comments hip flex to 95 on R w/pain, L no pain 110 Slump Test Results slight inc pull R w/neck flex, less on L PT-OP-M Strength Start: 02/16/22 13:19 Freq: Status: Active Protocol: Document 02/17/22 16:04 [facility] (Rec: 02/17/22 16:56 [facility] [id number]) Hip Strength Hip Manual Muscle Testing Right Flexion (L2) 4- Good- Extension (S1) 4 Good Abduction 4+ Good+ External Rotation 4 Good Internal Rotation 4+ Good+ Left Flexion (L2) 4- Good- Extension (S1) 4+ Good+ Abduction 5 Normal External Rotation 5 Normal Internal Rotation 5 Normal Knee Strength Knee Manual Muscle Testing Right Flexion (S2) 5 Normal Extension (L3) 5 Normal Left Flexion (S2) 5 Normal Extension (L3) 5 Normal Ankle/Foot Strength Ankle and Foot Manual Muscle Testing Right Dorsiflexion (L4) 5 Normal Plantarflexion (S1) 3+ Fair+ Inversion 5 Normal Eversion (S1) 5 Normal Comments 5 heel raises (stopped d/t pain in foot) Left Dorsiflexion (L4) 5 Normal Plantarflexion (S1) 5 Normal Inversion 5 Normal Eversion (S1) 5 Normal Comments big toe flex/ext B 5/5; 20 heel raises (hurts under ball of foot) PT-OP-Q Treatments Start: 02/16/22 13:19 Freq: Status: Active Protocol: Document 04/01/22 14:34 [facility] (Rec: 04/01/22 15:56 [facility] [id number]) Manual Therapy Treatment Soft Tissue Mobilization glutes Body Location R along sacral border Mobilization Type Strumming,Sustained Pressure Intensity/Depth Moderate Body Position Prone lumbar Body Location ES/QL R Mobilization Type Rolling,Strumming Intensity/Depth Moderate Body Position Prone Joint Mobilizations innominate Joint R Direction IR, caudal, abd FM hip Joint r Direction on axis IR, abd, ER , inf glide FM sacrum Joint R Direction UPA FM & caudal FM PT-OP-T Assessment and Plan Start: 02/16/22 13:19 Freq: Status: Active Protocol: Document 04/01/22 14:34 [facility] (Rec: 04/01/22 15:56 [facility] [id number]) Physical Therapy Assessment Goals activity Short Term Goal (STG) Pt will be able to stand when needed throughout the day w/o inc foot pain STG Duration 05/20/22 Intermediate Goal (LTG) Pt will be able to fully return to hiking, biking, and walking w/o inc pain in R buttocks, LBP or R foot. LTG Duration 05/20/22 ROM Short Term Goal (STG) Pt will have full R hip flex w /o inc pain STG Duration 04/15/22 Intermediate Goal (LTG) Pt will have improved lumbar motion including full R SB and rotation equal to other side. LTG Duration 05/17/22 strength Short Term Goal (STG) Pt will be indep w/HEP to help manage symptoms at home. STG Duration 04/04/22 Intermediate Goal (LTG) Pt will score at least 4/5 on LPM into all planes and 5/5 on all MMT including PF strength to show improved strength to improve gait mechanics. LTG Duration 05/20/22 FAAM Impairment 57/84 Short Term Goal (STG) Pt will improve score to at least 67/84 to show improved functional ability. STG Duration 04/13/22 Intermediate Goal (LTG) Pt will improve score to at least 77/84 to show improved functional ability. LTG Duration 05/20/22 Assessment Summary Assessment Pt had improved ER, IR and abd of his hip with improved innomiate and sacral mobility and less tenderness of glutes. Physical Therapy Plan Frequency and Duration Frequency of Treatment 1-2x/week Duration of Treatment 3 months Plan of Care Start Date 02/17/22 Plan of Care End Date 05/20/22 Next Visit Focus/Plan Next Note Type Treatment Note Next Visit Plan cont to work on hip,pelvis and back mobility, cont to work on joint mobs to R foot-try standing mobs, go over hip hinge
--- NOTE | 2022-04-26 12:09 | PT.OTN ---
Current Diagnoses Synovitis and tenosynovitis, unspecified (04/26/22) Physical Therapy Treatment Note PT-OP-A Visit Information Start: 02/16/22 13:19 Freq: Status: Active Protocol: Document 04/26/22 09:05 [facility] (Rec: 04/26/22 11:00 [facility] [id number]) Out-Patient Physical Therapy Visit Information Visit Information Visit Type Treatment Note Visit Start Time 09:05 Visit Stop Time 09:55 Total Visit Minutes 50 Visit Number 6 Number of GRINDER AND PLATER Visits 0 PT-OP-B Current Condition Start: 02/16/22 13:19 Freq: Status: Active Protocol: Document 02/17/22 16:04 [facility] (Rec: 02/17/22 16:56 [facility] [id number]) Current Condition History of Current Condition Onset Date foot Mar, buttocks 3 weeks ago Current Complaints LBP, R buttocks, R>L foot pain History of Current Condition Pt reports he has foot pain and LBP/buttocks pain. He feels like the buttocks pain is a result of how he walks d/ t foot pain. Pt reports foot pain started at the end of Mar when golfing. That is his front foot and he rotates over it and that started it and it has persisted since then. 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 He has used birkenstocks w/good help, MT pads w/o help, tried birkenstock shoes but they are pain. HOkas are pretty good. He has not been doing hiking, but has been doing a lot of walking around yard/area. He can't ride his road bike when cleated in because it hurts his foot. HIs mtn bike doesn't hurt as much but still some especailly w/ long hills but he hasn't been doing that recenlty. Onset of R buttocks pain about 3 weeks ago. the last couple months he has noticed tailbone pain when rowing. no recent falls on tailbone. Pt has a slight curvature in low back. Prior Treatments and Tests Chiro for LBP/buttocks pain- saw chiro that helped; Went to (did a bout of Advil and that helped some but still bothersome) Lumbar xray 2018:IMPRESSION: Degenerative disc disease in lumbar spine.; also noted mild levocurvature Treatment Goals Patient/Caregiver Goals Be able to ride, walk, stand to function normally PT-OP-C Subjective Start: 02/16/22 13:19 Freq: Status: Active Protocol: Document 04/26/22 09:05 [facility] (Rec: 04/26/22 11:00 [facility] [id number]) OP-PT Subjective Patient Comments Patient Comments Pt report R buttocks is still sore. Sitting, his tailbone is irritating him. He is still sore in his foot when he first wakes up and it losens up. he did a lot of walking and he did okay. He did 10k-18k steps a day. Depending on the shoes he was wearing, it determined his pain. His chacos were the most comfortable. he stood at [place] yesterday and his foot was sore from standing Patient Questionnaires Foot & Ankle Ability Measure- ADL and Sports FAAM-ADL Score 62/84 FAAM-Sport Score 15/27 Lower Extremity Functional Scale LEFS Score 45 PT-OP-F Manual Assessment Start: 02/16/22 13:19 Freq: Status: Active Protocol: Document 02/17/22 16:04 [facility] (Rec: 02/17/22 16:56 [facility] [id number]) Manual Assessments Joint Mobility Assessment Joint Mobility Assessment L iliac crest higher, equal greater trocahnter, IR R femur , IR B tibia, varus R rearfoot >L, valgus B big toe, supinated R foot PT-OP-G Mobility & Gait Start: 02/16/22 13:19 Freq: Status: Active Protocol: Document 02/17/22 16:04 [facility] (Rec: 02/17/22 16:56 [facility] [id number]) OP Gait Assessment Comments Gait Comments Dec stance time on R side and dec push off PT-OP-J Posture/Palpation/Skin Start: 02/16/22 13:19 Freq: Status: Active Protocol: Document 04/26/22 09:05 [facility] (Rec: 04/26/22 11:00 [facility] [id number]) Posture Evaluation [facility] Postural Classification System Lumbar Protective Mechanism Left AP 2 Lumbar Protective Mechanism Right AP 2 Lumbar Protective Mechanism Left PA 5 PT-OP-K Range of Motion Start: 02/16/22 13:19 Freq: Status: Active Protocol: Document 04/26/22 09:05 [facility] (Rec: 04/26/22 11:00 [facility] [id number]) Ankle and Foot Goniometric Range of Motion Ankle and Foot Right Active Dorsiflexion with Knee Flexed 10 Dorsiflexion with Knee Extended 2 PT-OP-L Special Tests Start: 02/16/22 13:19 Freq: Status: Active Protocol: Document 02/17/22 16:04 [facility] (Rec: 02/17/22 16:56 [facility] [id number]) Special Tests Lumbar Spine Special Tests Berta's Test Results positive R Straight Leg Raise Test Results impingement in R hip during, WNL HS Comments hip flex to 95 on R w/pain, L no pain 110 Slump Test Results slight inc pull R w/neck flex, less on L PT-OP-M Strength Start: 02/16/22 13:19 Freq: Status: Active Protocol: Document 04/26/22 09:05 [facility] (Rec: 04/26/22 11:00 [facility] [id number]) Hip Strength Hip Manual Muscle Testing Right Flexion (L2) 5 Normal Extension (S1) 5 Normal Abduction 5 Normal Adduction 5 Normal External Rotation 5 Normal Internal Rotation 5 Normal Left Flexion (L2) 5 Normal Extension (S1) 5 Normal Abduction 5 Normal Adduction 5 Normal External Rotation 5 Normal Internal Rotation 5 Normal Knee Strength Knee Manual Muscle Testing Right Flexion (S2) 5 Normal Extension (L3) 5 Normal Left Flexion (S2) 5 Normal Extension (L3) 5 Normal Ankle/Foot Strength Ankle and Foot Manual Muscle Testing Right Dorsiflexion (L4) 5 Normal Plantarflexion (S1) 4 Good Inversion 5 Normal Eversion (S1) 5 Normal Comments 10 heel raises (stopped d/t pain in foot) Left Dorsiflexion (L4) 5 Normal Plantarflexion (S1) 5 Normal Inversion 5 Normal Eversion (S1) 5 Normal Comments big toe flex/ext B 5/5; 20 heel raises (hurts under ball of foot) PT-OP-Q Treatments Start: 02/16/22 13:19 Freq: Status: Active Protocol: Document 04/26/22 09:05 [facility] (Rec: 04/26/22 11:00 [facility] [id number]) Manual Therapy Treatment Soft Tissue Mobilization glutes Body Location R along sacral border & sup glutes Mobilization Type Strumming,Sustained Pressure Intensity/Depth Moderate Body Position Prone calf Body Location plantar fascia & calf R Mobilization Type Rolling,Strumming Intensity/Depth Moderate Joint Mobilizations tibfib Joint R distal Direction AP tib FM hip Joint r Direction on axis ER & IR FM PT-OP-T Assessment and Plan Start: 02/16/22 13:19 Freq: Status: Active Protocol: Document 04/26/22 09:05 [facility] (Rec: 04/26/22 11:00 [facility] [id number]) Physical Therapy Assessment Goals activity Short Term Goal (STG) Pt will be able to stand when needed throughout the day w/o inc foot pain 04/26-still pain noted w/ standing STG Duration 06/09/22 Security Sme Goal (LTG) Pt will be able to fully return to hiking, biking, and walking w/o inc pain in R buttocks, LBP or R foot. 04/26- still limited from road biking, did a lot of long walking w/trip LTG Duration 06/26 ROM Short Term Goal (STG) Pt will have full R hip flex w /o inc pain STG Duration achieved Security Sme Goal (LTG) Pt will have improved lumbar motion including full R SB and rotation equal to other side. 04/26-still some limit w/SB to R w/pain, but equal rot LTG Duration 06/26 strength Short Term Goal (STG) Pt will be indep w/HEP to help manage symptoms at home. STG Duration achieved advancing as able Shelter Goal (LTG) Pt will score at least 4/5 on LPM into all planes and 5/5 on all MMT including PF strength to show improved strength to improve gait mechanics. 04/26-improved LTG Duration 06/26 FAAM Impairment 57/84 Short Term Goal (STG) Pt will improve score to at least 67/84 to show improved functional ability. 04/26-improved to 62 STG Duration 05/26 Security Sme Goal (LTG) Pt will improve score to at least 77/84 to show improved functional ability. LTG Duration 06/26 Assessment Summary Assessment Pt had improved hip IR & ER w/ manual which should help w/ better foot positioning. He still has limited DF which is likely contributing to his foot pain. Pt's foot painw as complicated by his back and hip pain that likely has affected the way he moves and made standing more difficult for him. He was able to do a lot of walking on his trip without too much pain. Pt would benefit from cont PT to cont to work on lower body mobility and stability in order to dec R foot and R hip pain. Physical Therapy Plan Frequency and Duration Frequency of Treatment 1-2x/week Duration of Treatment 2 months Plan of Care Start Date 04/26/22 Plan of Care End Date 06/26/22 Therapeutic Interventions Therapeutic Interventions Aquatic Therapy,Balance Training,Gait Training,Home Exercise Program,Joint Mobilizations,Manual Therapy, Neuromuscular Re-education, Orthotic/Prosthetic Management ,Patient/Caregiver Education, Self-Care/Home Management,Soft Tissue Mobilization,Taping, Therapeutic Activities, Therapeutic Exercises Modalities Cold Pack/Ice Massage,Electric Stimulation,Hot Packs, Infrared Therapy,Iontophoresis ,Traction- Mechanical, Ultrasound Next Visit Focus/Plan Next Note Type Treatment Note Next Visit Plan cont to work on hip,pelvis and back mobility, cont to work on joint mobs to R foot-try standing mobs, go over hip hinge
--- NOTE | 2022-04-26 12:09 | PT.OPPOC ---
Physical, Occupational & Speech Therapy At [facility] Current Diagnoses Synovitis and tenosynovitis, unspecified (04/26/22) Visit Care Team Role Provider Type Cecy Dye ND Family Provider Non-Staff Primary Care Provider Specialty: Naturopathy Address: [address] [place] [address], [id number] Email: Nick Erazo MD Attending Provider Non-Staff Referring Provider Specialty: Orthopedic Surgery Address: [address] [place], [address] Fax: Email: Plan Of Care PT-OP-T Assessment and Plan Start: 02/16/22 13:19 Freq: Status: Active Protocol: Document 04/26/22 09:05 [facility] (Rec: 04/26/22 11:00 [facility] [id number]) Physical Therapy Assessment Goals activity Short Term Goal (STG) Pt will be able to stand when needed throughout the day w/o inc foot pain 04/26-still pain noted w/ standing STG Duration 06/09/22 Mcfp Goal (LTG) Pt will be able to fully return to hiking, biking, and walking w/o inc pain in R buttocks, LBP or R foot. 04/26- still limited from road biking, did a lot of long walking w/trip LTG Duration 06/26 ROM Short Term Goal (STG) Pt will have full R hip flex w /o inc pain STG Duration achieved Mcfp Goal (LTG) Pt will have improved lumbar motion including full R SB and rotation equal to other side. 04/26-still some limit w/SB to R w/pain, but equal rot LTG Duration 06/26 strength Short Term Goal (STG) Pt will be indep w/HEP to help manage symptoms at home. STG Duration achieved advancing as able Mcfp Goal (LTG) Pt will score at least 4/5 on LPM into all planes and 5/5 on all MMT including PF strength to show improved strength to improve gait mechanics. 04/26-improved LTG Duration 06/26 FAAM Impairment 57/84 Short Term Goal (STG) Pt will improve score to at least 67/84 to show improved functional ability. 04/26-improved to 62 STG Duration 05/26 [employer] Goal (LTG) Pt will improve score to at least 77/84 to show improved functional ability. LTG Duration 06/26 Assessment Summary Assessment Pt had improved hip IR & ER w/ manual which should help w/ better foot positioning. He still has limited DF which is likely contributing to his foot pain. Pt's foot painw as complicated by his back and hip pain that likely has affected the way he moves and made standing more difficult for him. He was able to do a lot of walking on his trip without too much pain. Pt would benefit from cont PT to cont to work on lower body mobility and stability in order to dec R foot and R hip pain. Physical Therapy Plan Frequency and Duration Frequency of Treatment 1-2x/week Duration of Treatment 2 months Plan of Care Start Date 04/26/22 Plan of Care End Date 06/26/22 Therapeutic Interventions Therapeutic Interventions Aquatic Therapy,Balance Training,Gait Training,Home Exercise Program,Joint Mobilizations,Manual Therapy, Neuromuscular Re-education, Orthotic/Prosthetic Management ,Patient/Caregiver Education, Self-Care/Home Management,Soft Tissue Mobilization,Taping, Therapeutic Activities, Therapeutic Exercises Modalities Cold Pack/Ice Massage,Electric Stimulation,Hot Packs, Infrared Therapy,Iontophoresis ,Traction- Mechanical, Ultrasound Next Visit Focus/Plan Next Note Type Treatment Note Next Visit Plan cont to work on hip,pelvis and back mobility, cont to work on joint mobs to R foot-try standing mobs, go over hip hinge Plan of Care Dates Plan of Care Start Date 04/26/22 Plan of Care End Date 06/26/22 Electronically Signed by: Amy Alanis, PT 04/26/22 1801 If you are in agreement with this Plan of Care, please return a signed and dated copy. I have reviewed this Plan of Care and certify that the skilled therapy services above are required to meet the patient?s needs. Physician Signature Date Printed Name and Credentials Clinical Instructor Signature Printed Name and Credentials
--- NOTE | 2022-05-05 10:07 | PT.OTN ---
Current Diagnoses Synovitis and tenosynovitis, unspecified (05/05/22) Physical Therapy Treatment Note PT-OP-A Visit Information Start: 02/16/22 13:19 Freq: Status: Active Protocol: Document 05/05/22 09:06 [facility] (Rec: 05/05/22 10:07 [facility] [id number]) Out-Patient Physical Therapy Visit Information Visit Information Visit Type Treatment Note Visit Start Time 09:05 Visit Stop Time 09:55 Total Visit Minutes 50 Visit Number 7 Number of PCTS Visits 0 PT-OP-B Current Condition Start: 02/16/22 13:19 Freq: Status: Active Protocol: Document 02/17/22 16:04 [facility] (Rec: 02/17/22 16:56 [facility] [id number]) Current Condition History of Current Condition Onset Date foot Mar, buttocks 3 weeks ago Current Complaints LBP, R buttocks, R>L foot pain History of Current Condition Pt reports he has foot pain and LBP/buttocks pain. He feels like the buttocks pain is a result of how he walks d/ t foot pain. Pt reports foot pain started at the end of Mar when golfing. That is his front foot and he rotates over it and that started it and it has persisted since then. 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 He has used birkenstocks w/good help, MT pads w/o help, tried birkenstock shoes but they are pain. HOkas are pretty good. He has not been doing hiking, but has been doing a lot of walking around yard/area. He can't ride his road bike when cleated in because it hurts his foot. HIs mtn bike doesn't hurt as much but still some especailly w/ long hills but he hasn't been doing that recenlty. Onset of R buttocks pain about 3 weeks ago. the last couple months he has noticed tailbone pain when rowing. no recent falls on tailbone. Pt has a slight curvature in low back. Prior Treatments and Tests Chiro for LBP/buttocks pain- saw chiro that helped; Went to (did a bout of Advil and that helped some but still bothersome) Lumbar xray 2018:IMPRESSION: Degenerative disc disease in lumbar spine.; also noted mild levocurvature Treatment Goals Patient/Caregiver Goals Be able to ride, walk, stand to function normally PT-OP-C Subjective Start: 02/16/22 13:19 Freq: Status: Active Protocol: Document 05/05/22 09:06 [facility] (Rec: 05/05/22 10:07 [facility] [id number]) OP-PT Subjective Patient Comments Patient Comments Pt reports his sciatic pain is worse the last 4-5 days. he has been mtn biking and unsure if taht has inc it or sitting at night watching TV. it doesn't hurt during mtn biking on his sciatic. His pain improves walking in sciatic. He idd a small hike up railroad grade PT-OP-F Manual Assessment Start: 02/16/22 13:19 Freq: Status: Active Protocol: Document 02/17/22 16:04 [facility] (Rec: 02/17/22 16:56 [facility] [id number]) Manual Assessments Joint Mobility Assessment Joint Mobility Assessment L iliac crest higher, equal greater trocahnter, IR R femur , IR B tibia, varus R rearfoot >L, valgus B big toe, supinated R foot PT-OP-G Mobility & Gait Start: 02/16/22 13:19 Freq: Status: Active Protocol: Document 02/17/22 16:04 [facility] (Rec: 02/17/22 16:56 [facility] [id number]) OP Gait Assessment Comments Gait Comments Dec stance time on R side and dec push off PT-OP-J Posture/Palpation/Skin Start: 02/16/22 13:19 Freq: Status: Active Protocol: Document 04/26/22 09:05 [facility] (Rec: 04/26/22 11:00 [facility] [id number]) Posture Evaluation [facility] Postural Classification System Lumbar Protective Mechanism Left AP 2 Lumbar Protective Mechanism Right AP 2 Lumbar Protective Mechanism Left PA 5 PT-OP-K Range of Motion Start: 02/16/22 13:19 Freq: Status: Active Protocol: Document 04/26/22 09:05 [facility] (Rec: 04/26/22 11:00 [facility] [id number]) Ankle and Foot Goniometric Range of Motion Ankle and Foot Right Active Dorsiflexion with Knee Flexed 10 Dorsiflexion with Knee Extended 2 PT-OP-L Special Tests Start: 02/16/22 13:19 Freq: Status: Active Protocol: Document 02/17/22 16:04 [facility] (Rec: 02/17/22 16:56 [facility] [id number]) Special Tests Lumbar Spine Special Tests Berta's Test Results positive R Straight Leg Raise Test Results impingement in R hip during, WNL HS Comments hip flex to 95 on R w/pain, L no pain 110 Slump Test Results slight inc pull R w/neck flex, less on L PT-OP-M Strength Start: 02/16/22 13:19 Freq: Status: Active Protocol: Document 04/26/22 09:05 [facility] (Rec: 04/26/22 11:00 [facility] [id number]) Hip Strength Hip Manual Muscle Testing Right Flexion (L2) 5 Normal Extension (S1) 5 Normal Abduction 5 Normal Adduction 5 Normal External Rotation 5 Normal Internal Rotation 5 Normal Left Flexion (L2) 5 Normal Extension (S1) 5 Normal Abduction 5 Normal Adduction 5 Normal External Rotation 5 Normal Internal Rotation 5 Normal Knee Strength Knee Manual Muscle Testing Right Flexion (S2) 5 Normal Extension (L3) 5 Normal Left Flexion (S2) 5 Normal Extension (L3) 5 Normal Ankle/Foot Strength Ankle and Foot Manual Muscle Testing Right Dorsiflexion (L4) 5 Normal Plantarflexion (S1) 4 Good Inversion 5 Normal Eversion (S1) 5 Normal Comments 10 heel raises (stopped d/t pain in foot) Left Dorsiflexion (L4) 5 Normal Plantarflexion (S1) 5 Normal Inversion 5 Normal Eversion (S1) 5 Normal Comments big toe flex/ext B 5/5; 20 heel raises (hurts under ball of foot) PT-OP-Q Treatments Start: 02/16/22 13:19 Freq: Status: Active Protocol: Document 05/05/22 09:06 [facility] (Rec: 05/05/22 10:07 [facility] [id number]) Manual Therapy Treatment Soft Tissue Mobilization glutes Body Location R along sacral border & sup glutes& piriformis Mobilization Type Strumming,Sustained Pressure Intensity/Depth Moderate Body Position Prone Comments IR/ER Joint Mobilizations coccyx Joint L UPA & R transverse FM innominate Joint R Direction IR FM hip Joint r Direction inf & IR on axis FM sacrum Joint L UPA FM Self-Care/Home Management Treatment Education Other Education edu re: coccyx connections and got verbal permissionf or external coccyx mobs; edu re: shoe options like Altras w/ wide toe box but to try them on and make sure they are comfortable. Edu that minimalist shoes like what he ordered would have no support and may be uncomofrtable. Encouraged to ice and roll out after biking. Discussed supporting back moer in couch & bring apic of him sitting on couch PT-OP-T Assessment and Plan Start: 02/16/22 13:19 Freq: Status: Active Protocol: Document 05/05/22 09:06 [facility] (Rec: 05/05/22 10:07 [facility] [id number]) Physical Therapy Assessment Goals activity Short Term Goal (STG) Pt will be able to stand when needed throughout the day w/o inc foot pain 04/26-still pain noted w/ standing STG Duration 06/09/22 Care Home Goal (LTG) Pt will be able to fully return to hiking, biking, and walking w/o inc pain in R buttocks, LBP or R foot. 04/26- still limited from road biking, did a lot of long walking w/trip LTG Duration 06/26 ROM Short Term Goal (STG) Pt will have full R hip flex w /o inc pain STG Duration achieved Care Home Goal (LTG) Pt will have improved lumbar motion including full R SB and rotation equal to other side. 04/26-still some limit w/SB to R w/pain, but equal rot LTG Duration 06/26 strength Short Term Goal (STG) Pt will be indep w/HEP to help manage symptoms at home. STG Duration achieved advancing as able Care Home Goal (LTG) Pt will score at least 4/5 on LPM into all planes and 5/5 on all MMT including PF strength to show improved strength to improve gait mechanics. 04/26-improved LTG Duration 06/26 FAAM Impairment 57/84 Short Term Goal (STG) Pt will improve score to at least 67/84 to show improved functional ability. 04/26-improved to 62 STG Duration 05/26 Folding Machine Tender Goal (LTG) Pt will improve score to at least 77/84 to show improved functional ability. LTG Duration 06/26 Assessment Summary Assessment Pt had much improved IR after manual and improved ability to go into IR w/flex also. He had significant coccyx L SB and L rot that improved w/ manual and may be contributing to his tailbone painw hen sitting and nerve pain down LE . Physical Therapy Plan Frequency and Duration Frequency of Treatment 1-2x/week Duration of Treatment 2 months Plan of Care Start Date 04/26/22 Plan of Care End Date 06/26/22 Next Visit Focus/Plan Next Note Type Treatment Note Next Visit Plan cont to work on hip,pelvis and back mobility, cont to work on joint mobs to R foot-try standing mobs, go over hip hinge
--- NOTE | 2022-05-19 17:58 | PT.OTN ---
Current Diagnoses Synovitis and tenosynovitis, unspecified (05/19/22) Physical Therapy Treatment Note PT-OP-A Visit Information Start: 02/16/22 13:19 Freq: Status: Active Protocol: Document 05/19/22 07:30 [facility] (Rec: 05/19/22 17:58 [facility] [id number]) Out-Patient Physical Therapy Visit Information Visit Information Visit Type Treatment Note Visit Start Time 08:23 Visit Stop Time 09:07 Total Visit Minutes 45 Visit Number 8 Number of RECRUITER SPECIALIST Visits 0 PT-OP-B Current Condition Start: 02/16/22 13:19 Freq: Status: Active Protocol: Document 02/17/22 16:04 [facility] (Rec: 02/17/22 16:56 [facility] [id number]) Current Condition History of Current Condition Onset Date foot Mar, buttocks 3 weeks ago Current Complaints LBP, R buttocks, R>L foot pain History of Current Condition Pt reports he has foot pain and LBP/buttocks pain. He feels like the buttocks pain is a result of how he walks d/ t foot pain. Pt reports foot pain started at the end of Mar when golfing. That is his front foot and he rotates over it and that started it and it has persisted since then. 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 He has used birkenstocks w/good help, MT pads w/o help, tried birkenstock shoes but they are pain. HOkas are pretty good. He has not been doing hiking, but has been doing a lot of walking around yard/area. He can't ride his road bike when cleated in because it hurts his foot. HIs mtn bike doesn't hurt as much but still some especailly w/ long hills but he hasn't been doing that recenlty. Onset of R buttocks pain about 3 weeks ago. the last couple months he has noticed tailbone pain when rowing. no recent falls on tailbone. Pt has a slight curvature in low back. Prior Treatments and Tests Chiro for LBP/buttocks pain- saw chiro that helped; Went to (did a bout of Advil and that helped some but still bothersome) Lumbar xray 2018:IMPRESSION: Degenerative disc disease in lumbar spine.; also noted mild levocurvature Treatment Goals Patient/Caregiver Goals Be able to ride, walk, stand to function normally PT-OP-C Subjective Start: 02/16/22 13:19 Freq: Status: Active Protocol: Document 05/19/22 07:30 [facility] (Rec: 05/19/22 17:58 [facility] [id number]) OP-PT Subjective Patient Comments Patient Comments Pt reports doing okay. foot hurts in new altras after 2.5 miles and changed to chacos 2nd time safter stretches and pain was better that day. Did a big bike ride the day after last session adn did okay on mtn bike. PT-OP-F Manual Assessment Start: 02/16/22 13:19 Freq: Status: Active Protocol: Document 02/17/22 16:04 [facility] (Rec: 02/17/22 16:56 [facility] [id number]) Manual Assessments Joint Mobility Assessment Joint Mobility Assessment L iliac crest higher, equal greater trocahnter, IR R femur , IR B tibia, varus R rearfoot >L, valgus B big toe, supinated R foot PT-OP-G Mobility & Gait Start: 02/16/22 13:19 Freq: Status: Active Protocol: Document 02/17/22 16:04 [facility] (Rec: 02/17/22 16:56 [facility] [id number]) OP Gait Assessment Comments Gait Comments Dec stance time on R side and dec push off PT-OP-J Posture/Palpation/Skin Start: 02/16/22 13:19 Freq: Status: Active Protocol: Document 04/26/22 09:05 [facility] (Rec: 04/26/22 11:00 [facility] [id number]) Posture Evaluation [facility] Postural Classification System Lumbar Protective Mechanism Left AP 2 Lumbar Protective Mechanism Right AP 2 Lumbar Protective Mechanism Left PA 5 PT-OP-K Range of Motion Start: 02/16/22 13:19 Freq: Status: Active Protocol: Document 04/26/22 09:05 [facility] (Rec: 04/26/22 11:00 [facility] [id number]) Ankle and Foot Goniometric Range of Motion Ankle and Foot Right Active Dorsiflexion with Knee Flexed 10 Dorsiflexion with Knee Extended 2 PT-OP-L Special Tests Start: 02/16/22 13:19 Freq: Status: Active Protocol: Document 02/17/22 16:04 [facility] (Rec: 02/17/22 16:56 [facility] [id number]) Special Tests Lumbar Spine Special Tests Berta's Test Results positive R Straight Leg Raise Test Results impingement in R hip during, WNL HS Comments hip flex to 95 on R w/pain, L no pain 110 Slump Test Results slight inc pull R w/neck flex, less on L PT-OP-M Strength Start: 02/16/22 13:19 Freq: Status: Active Protocol: Document 04/26/22 09:05 [facility] (Rec: 04/26/22 11:00 [facility] [id number]) Hip Strength Hip Manual Muscle Testing Right Flexion (L2) 5 Normal Extension (S1) 5 Normal Abduction 5 Normal Adduction 5 Normal External Rotation 5 Normal Internal Rotation 5 Normal Left Flexion (L2) 5 Normal Extension (S1) 5 Normal Abduction 5 Normal Adduction 5 Normal External Rotation 5 Normal Internal Rotation 5 Normal Knee Strength Knee Manual Muscle Testing Right Flexion (S2) 5 Normal Extension (L3) 5 Normal Left Flexion (S2) 5 Normal Extension (L3) 5 Normal Ankle/Foot Strength Ankle and Foot Manual Muscle Testing Right Dorsiflexion (L4) 5 Normal Plantarflexion (S1) 4 Good Inversion 5 Normal Eversion (S1) 5 Normal Comments 10 heel raises (stopped d/t pain in foot) Left Dorsiflexion (L4) 5 Normal Plantarflexion (S1) 5 Normal Inversion 5 Normal Eversion (S1) 5 Normal Comments big toe flex/ext B 5/5; 20 heel raises (hurts under ball of foot) PT-OP-Q Treatments Start: 02/16/22 13:19 Freq: Status: Active Protocol: Document 05/19/22 07:30 [facility] (Rec: 05/19/22 17:58 [facility] [id number]) Manual Therapy Treatment Soft Tissue Mobilization calf Body Location plantar fascia & calf R (focus on Med border Mobilization Type Rolling,Strumming Intensity/Depth Moderate Joint Mobilizations knee Comments IR of R tibia med glide of tib FM tibfib Joint R distal Direction AP tib FM talus Joint APF M Self-Care/Home Management Treatment Education Other Education discussion re: trying superfeet in altra shoes to see if that helps. Edu if pt feels better barefoot overall, then a minimalist shoe w/more flexibilty may be more comfortable but to be cautious w/transition. Verbal review of exercises to cont: calf strength, squats, streatches for glutes, and core exercsies PT-OP-T Assessment and Plan Start: 02/16/22 13:19 Freq: Status: Active Protocol: Document 05/19/22 07:30 [facility] (Rec: 05/19/22 17:58 [facility] [id number]) Physical Therapy Assessment Goals activity Short Term Goal (STG) Pt will be able to stand when needed throughout the day w/o inc foot pain 04/26-still pain noted w/ standing STG Duration 06/09/22 Dredge Runner Goal (LTG) Pt will be able to fully return to hiking, biking, and walking w/o inc pain in R buttocks, LBP or R foot. 04/26- still limited from road biking, did a lot of long walking w/trip LTG Duration 06/26 ROM Short Term Goal (STG) Pt will have full R hip flex w /o inc pain STG Duration achieved Dredge Runner Goal (LTG) Pt will have improved lumbar motion including full R SB and rotation equal to other side. 04/26-still some limit w/SB to R w/pain, but equal rot LTG Duration 06/26 strength Short Term Goal (STG) Pt will be indep w/HEP to help manage symptoms at home. STG Duration achieved advancing as able Jail Goal (LTG) Pt will score at least 4/5 on LPM into all planes and 5/5 on all MMT including PF strength to show improved strength to improve gait mechanics. 04/26-improved LTG Duration 06/26 FAAM Impairment 57/84 Short Term Goal (STG) Pt will improve score to at least 67/84 to show improved functional ability. 04/26-improved to 62 STG Duration 05/26 Jail Goal (LTG) Pt will improve score to at least 77/84 to show improved functional ability. LTG Duration 06/26 Assessment Summary Assessment Improed alignment fo knee over foot which will imrpoved wt distribution in foot and for back after manual. He has dec R calf definitiona nd d/t SL painful after a few encouraged to start w/DL. Physical Therapy Plan Frequency and Duration Frequency of Treatment 1-2x/week Plan of Care Start Date 04/26/22 Plan of Care End Date 06/26/22 Next Visit Focus/Plan Next Note Type Treatment Note Next Visit Plan cont to work on hip,pelvis and back mobility, cont to work on joint mobs to R foot-try standing mobs, go over hip hinge
--- NOTE | 2022-05-24 18:39 | PT.OTN ---
Current Diagnoses Synovitis and tenosynovitis, unspecified (05/24/22) Physical Therapy Treatment Note PT-OP-A Visit Information Start: 02/16/22 13:19 Freq: Status: Active Protocol: Document 05/24/22 09:55 [facility] (Rec: 05/24/22 18:38 [facility] [id number]) Out-Patient Physical Therapy Visit Information Visit Information Visit Type Treatment Note Visit Start Time 08:20 Visit Stop Time 09:00 Total Visit Minutes 40 Visit Number 9 Number of SUPERVISOR EDGING Visits 0 PT-OP-B Current Condition Start: 02/16/22 13:19 Freq: Status: Active Protocol: Document 02/17/22 16:04 [facility] (Rec: 02/17/22 16:56 [facility] [id number]) Current Condition History of Current Condition Onset Date foot Mar, buttocks 3 weeks ago Current Complaints LBP, R buttocks, R>L foot pain History of Current Condition Pt reports he has foot pain and LBP/buttocks pain. He feels like the buttocks pain is a result of how he walks d/ t foot pain. Pt reports foot pain started at the end of Mar when golfing. That is his front foot and he rotates over it and that started it and it has persisted since then. 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 He has used birkenstocks w/good help, MT pads w/o help, tried birkenstock shoes but they are pain. HOkas are pretty good. He has not been doing hiking, but has been doing a lot of walking around yard/area. He can't ride his road bike when cleated in because it hurts his foot. HIs mtn bike doesn't hurt as much but still some especailly w/ long hills but he hasn't been doing that recenlty. Onset of R buttocks pain about 3 weeks ago. the last couple months he has noticed tailbone pain when rowing. no recent falls on tailbone. Pt has a slight curvature in low back. Prior Treatments and Tests Chiro for LBP/buttocks pain- saw chiro that helped; Went to (did a bout of Advil and that helped some but still bothersome) Lumbar xray 2018:IMPRESSION: Degenerative disc disease in lumbar spine.; also noted mild levocurvature Treatment Goals Patient/Caregiver Goals Be able to ride, walk, stand to function normally PT-OP-C Subjective Start: 02/16/22 13:19 Freq: Status: Active Protocol: Document 05/24/22 09:55 [facility] (Rec: 05/24/22 18:38 [facility] [id number]) OP-PT Subjective Patient Comments Patient Comments Pt reports he has been doing his heelraises and some squats . Knee was sore fore a few days after last session. PT-OP-F Manual Assessment Start: 02/16/22 13:19 Freq: Status: Active Protocol: Document 02/17/22 16:04 [facility] (Rec: 02/17/22 16:56 [facility] [id number]) Manual Assessments Joint Mobility Assessment Joint Mobility Assessment L iliac crest higher, equal greater trocahnter, IR R femur , IR B tibia, varus R rearfoot >L, valgus B big toe, supinated R foot PT-OP-G Mobility & Gait Start: 02/16/22 13:19 Freq: Status: Active Protocol: Document 02/17/22 16:04 [facility] (Rec: 02/17/22 16:56 [facility] [id number]) OP Gait Assessment Comments Gait Comments Dec stance time on R side and dec push off PT-OP-J Posture/Palpation/Skin Start: 02/16/22 13:19 Freq: Status: Active Protocol: Document 04/26/22 09:05 [facility] (Rec: 04/26/22 11:00 [facility] [id number]) Posture Evaluation [facility] Postural Classification System Lumbar Protective Mechanism Left AP 2 Lumbar Protective Mechanism Right AP 2 Lumbar Protective Mechanism Left PA 5 PT-OP-K Range of Motion Start: 02/16/22 13:19 Freq: Status: Active Protocol: Document 04/26/22 09:05 [facility] (Rec: 04/26/22 11:00 [facility] [id number]) Ankle and Foot Goniometric Range of Motion Ankle and Foot Right Active Dorsiflexion with Knee Flexed 10 Dorsiflexion with Knee Extended 2 PT-OP-L Special Tests Start: 02/16/22 13:19 Freq: Status: Active Protocol: Document 02/17/22 16:04 [facility] (Rec: 02/17/22 16:56 [facility] [id number]) Special Tests Lumbar Spine Special Tests Berta's Test Results positive R Straight Leg Raise Test Results impingement in R hip during, WNL HS Comments hip flex to 95 on R w/pain, L no pain 110 Slump Test Results slight inc pull R w/neck flex, less on L PT-OP-M Strength Start: 02/16/22 13:19 Freq: Status: Active Protocol: Document 04/26/22 09:05 [facility] (Rec: 04/26/22 11:00 [facility] [id number]) Hip Strength Hip Manual Muscle Testing Right Flexion (L2) 5 Normal Extension (S1) 5 Normal Abduction 5 Normal Adduction 5 Normal External Rotation 5 Normal Internal Rotation 5 Normal Left Flexion (L2) 5 Normal Extension (S1) 5 Normal Abduction 5 Normal Adduction 5 Normal External Rotation 5 Normal Internal Rotation 5 Normal Knee Strength Knee Manual Muscle Testing Right Flexion (S2) 5 Normal Extension (L3) 5 Normal Left Flexion (S2) 5 Normal Extension (L3) 5 Normal Ankle/Foot Strength Ankle and Foot Manual Muscle Testing Right Dorsiflexion (L4) 5 Normal Plantarflexion (S1) 4 Good Inversion 5 Normal Eversion (S1) 5 Normal Comments 10 heel raises (stopped d/t pain in foot) Left Dorsiflexion (L4) 5 Normal Plantarflexion (S1) 5 Normal Inversion 5 Normal Eversion (S1) 5 Normal Comments big toe flex/ext B 5/5; 20 heel raises (hurts under ball of foot) PT-OP-Q Treatments Start: 02/16/22 13:19 Freq: Status: Active Protocol: Document 05/24/22 09:55 [facility] (Rec: 05/24/22 18:38 [facility] [id number]) Manual Therapy Treatment Soft Tissue Mobilization calf Body Location plantar fascia & calf R Mobilization Type Rolling,Strumming Intensity/Depth Moderate Joint Mobilizations MTP Joint 1&2 AP FM R MT Joint R 2-3 Ant & post cuneiform Joint R Direction gapping FM talus Joint R distraction & med glide FM calcaneus Joint R Direction distraction, lat glide FM PT-OP-T Assessment and Plan Start: 02/16/22 13:19 Freq: Status: Active Protocol: Document 05/24/22 09:55 [facility] (Rec: 05/24/22 18:38 [facility] [id number]) Physical Therapy Assessment Goals activity Short Term Goal (STG) Pt will be able to stand when needed throughout the day w/o inc foot pain 04/26-still pain noted w/ standing STG Duration 06/09/22 Shelter Goal (LTG) Pt will be able to fully return to hiking, biking, and walking w/o inc pain in R buttocks, LBP or R foot. 04/26- still limited from road biking, did a lot of long walking w/trip LTG Duration 06/26 ROM Short Term Goal (STG) Pt will have full R hip flex w /o inc pain STG Duration achieved Cobbler Apprentice Goal (LTG) Pt will have improved lumbar motion including full R SB and rotation equal to other side. 04/26-still some limit w/SB to R w/pain, but equal rot LTG Duration 06/26 strength Short Term Goal (STG) Pt will be indep w/HEP to help manage symptoms at home. STG Duration achieved advancing as able Cobbler Apprentice Goal (LTG) Pt will score at least 4/5 on LPM into all planes and 5/5 on all MMT including PF strength to show improved strength to improve gait mechanics. 04/26-improved LTG Duration 06/26 FAAM Impairment 57/84 Short Term Goal (STG) Pt will improve score to at least 67/84 to show improved functional ability. 04/26-improved to 62 STG Duration 05/26 Cobbler Apprentice Goal (LTG) Pt will improve score to at least 77/84 to show improved functional ability. LTG Duration 06/26 Assessment Summary Assessment Pt had improved DF w/less pronation w/manual treatment. He had more rigidity between MT 2-3 than any other area Physical Therapy Plan Frequency and Duration Frequency of Treatment 1-2x/week Plan of Care Start Date 04/26/22 Plan of Care End Date 06/26/22 Next Visit Focus/Plan Next Note Type Treatment Note Next Visit Plan cont to work on joint mobs to R foot-try standing mobs,work on wt shift
--- NOTE | 2022-07-28 17:05 | PT.OTN ---
Current Diagnoses Synovitis and tenosynovitis, unspecified (07/28/22) Physical Therapy Treatment Note PT-OP-A Visit Information Start: 02/16/22 13:19 Freq: Status: Active Protocol: Document 07/28/22 08:16 [facility] (Rec: 07/28/22 17:05 [facility] [id number]) Out-Patient Physical Therapy Visit Information Visit Information Visit Type Progress Note Visit Start Time 09:05 Visit Stop Time 09:48 Total Visit Minutes 43 Visit Number 10 Number of FIFTH HAND Visits 0 PT-OP-B Current Condition Start: 02/16/22 13:19 Freq: Status: Active Protocol: Document 02/17/22 16:04 [facility] (Rec: 02/17/22 16:56 [facility] [id number]) Current Condition History of Current Condition Onset Date foot Mar, buttocks 3 weeks ago Current Complaints LBP, R buttocks, R>L foot pain History of Current Condition Pt reports he has foot pain and LBP/buttocks pain. He feels like the buttocks pain is a result of how he walks d/ t foot pain. Pt reports foot pain started at the end of Mar when golfing. That is his front foot and he rotates over it and that started it and it has persisted since then. 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 He has used birkenstocks w/good help, MT pads w/o help, tried birkenstock shoes but they are pain. HOkas are pretty good. He has not been doing hiking, but has been doing a lot of walking around yard/area. He can't ride his road bike when cleated in because it hurts his foot. HIs mtn bike doesn't hurt as much but still some especailly w/ long hills but he hasn't been doing that recenlty. Onset of R buttocks pain about 3 weeks ago. the last couple months he has noticed tailbone pain when rowing. no recent falls on tailbone. Pt has a slight curvature in low back. Prior Treatments and Tests Chiro for LBP/buttocks pain- saw chiro that helped; Went to (did a bout of Advil and that helped some but still bothersome) Lumbar xray 2018:IMPRESSION: Degenerative disc disease in lumbar spine.; also noted mild levocurvature Treatment Goals Patient/Caregiver Goals Be able to ride, walk, stand to function normally PT-OP-C Subjective Start: 02/16/22 13:19 Freq: Status: Active Protocol: Document 07/28/22 08:16 [facility] (Rec: 07/28/22 17:05 [facility] [id number]) OP-PT Subjective Patient Comments Patient Comments pt reports R knee hurt a lot at [place]. He idd well with his foot pain overall as long he was wearing the right shoes PT-OP-F Manual Assessment Start: 02/16/22 13:19 Freq: Status: Active Protocol: Document 02/17/22 16:04 [facility] (Rec: 02/17/22 16:56 [facility] [id number]) Manual Assessments Joint Mobility Assessment Joint Mobility Assessment L iliac crest higher, equal greater trocahnter, IR R femur , IR B tibia, varus R rearfoot >L, valgus B big toe, supinated R foot PT-OP-G Mobility & Gait Start: 02/16/22 13:19 Freq: Status: Active Protocol: Document 02/17/22 16:04 [facility] (Rec: 02/17/22 16:56 [facility] [id number]) OP Gait Assessment Comments Gait Comments Dec stance time on R side and dec push off PT-OP-J Posture/Palpation/Skin Start: 02/16/22 13:19 Freq: Status: Active Protocol: Document 07/28/22 08:16 [facility] (Rec: 07/28/22 17:05 [facility] [id number]) Posture Evaluation [facility] Postural Classification System Lumbar Protective Mechanism Left AP 4 Lumbar Protective Mechanism Right AP 4 Lumbar Protective Mechanism Left PA 3 Lumbar Protective Mechanism Right PA 4 PT-OP-K Range of Motion Start: 02/16/22 13:19 Freq: Status: Active Protocol: Document 04/26/22 09:05 [facility] (Rec: 04/26/22 11:00 [facility] [id number]) Ankle and Foot Goniometric Range of Motion Ankle and Foot Right Active Dorsiflexion with Knee Flexed 10 Dorsiflexion with Knee Extended 2 PT-OP-L Special Tests Start: 02/16/22 13:19 Freq: Status: Active Protocol: Document 02/17/22 16:04 [facility] (Rec: 02/17/22 16:56 [facility] [id number]) Special Tests Lumbar Spine Special Tests Berta's Test Results positive R Straight Leg Raise Test Results impingement in R hip during, WNL HS Comments hip flex to 95 on R w/pain, L no pain 110 Slump Test Results slight inc pull R w/neck flex, less on L PT-OP-M Strength Start: 02/16/22 13:19 Freq: Status: Active Protocol: Document 07/28/22 08:16 [facility] (Rec: 07/28/22 17:05 [facility] [id number]) Hip Strength Hip Manual Muscle Testing Right Flexion (L2) 5 Normal Extension (S1) 5 Normal Abduction 5 Normal Adduction 5 Normal External Rotation 5 Normal Internal Rotation 5 Normal Left Flexion (L2) 5 Normal Extension (S1) 5 Normal Abduction 5 Normal Adduction 5 Normal External Rotation 5 Normal Internal Rotation 5 Normal Knee Strength Knee Manual Muscle Testing Right Flexion (S2) 5 Normal Extension (L3) 5 Normal Left Flexion (S2) 5 Normal Extension (L3) 5 Normal Ankle/Foot Strength Ankle and Foot Manual Muscle Testing Right Dorsiflexion (L4) 5 Normal Plantarflexion (S1) 5 Normal Inversion 5 Normal Eversion (S1) 5 Normal Left Dorsiflexion (L4) 5 Normal Plantarflexion (S1) 5 Normal Inversion 5 Normal Eversion (S1) 5 Normal Comments big toe flex/ext B 5/5; 20 heel raises PT-OP-Q Treatments Start: 02/16/22 13:19 Freq: Status: Active Protocol: Document 07/28/22 08:16 [facility] (Rec: 07/28/22 17:05 [facility] [id number]) Manual Therapy Treatment Soft Tissue Mobilization ITB Body Location R Mobilization Type Rolling Intensity/Depth Moderate calf Body Location HS & calf R Mobilization Type Rolling,Strumming Intensity/Depth Moderate Comments APS and active HS stretch FM Joint Mobilizations PF Joint R Direction sup, inf, med tibfib Joint R proximal Direction gapping & AP FM Self-Care/Home Management Treatment Education Other Education exercise review PT-OP-T Assessment and Plan Start: 02/16/22 13:19 Freq: Status: Active Protocol: Document 07/28/22 08:16 [facility] (Rec: 07/28/22 17:05 [facility] [id number]) Physical Therapy Assessment Goals activity Short Term Goal (STG) Pt will be able to stand when needed throughout the day w/o inc foot pain 04/26-still pain noted w/ standing STG Duration pain still w/standing Nursing Home Goal (LTG) Pt will be able to fully return to hiking, biking, and walking w/o inc pain in R buttocks, LBP or R foot. 04/26- still limited from road biking, did a lot of long walking w/trip LTG Duration can if has on R shoes ROM Short Term Goal (STG) Pt will have full R hip flex w /o inc pain STG Duration achieved Mock Up Assembler Goal (LTG) Pt will have improved lumbar motion including full R SB and rotation equal to other side. 04/26-still some limit w/SB to R w/pain, but equal rot LTG Duration achieved strength Short Term Goal (STG) Pt will be indep w/HEP to help manage symptoms at home. STG Duration achieved advancing as able Mock Up Assembler Goal (LTG) Pt will score at least 4/5 on LPM into all planes and 5/5 on all MMT including PF strength to show improved strength to improve gait mechanics. 04/26-improved 07/28-mostly achieved LTG Duration much improved all but LPM FAAM Impairment 57/84 Short Term Goal (STG) Pt will improve score to at least 67/84 to show improved functional ability. 04/26-improved to 62 STG Duration achieved Nursing Home Goal (LTG) Pt will improve score to at least 77/84 to show improved functional ability. LTG Duration achieved to 77 Assessment Summary Assessment Pt has met goals for back and foot and is having only mild issues. he does well barefoot in the house and he does well with his chacos and addidas sneakers. He is indep w/HEP and d/c d/tmostly met goals. Pt has recent knee pain that he was encouraged to see provider for to get referral for. Physical Therapy Plan Frequency and Duration Frequency of Treatment 1x Plan of Care Start Date 07/28/22 Plan of Care End Date 07/28/22 Therapeutic Interventions Therapeutic Interventions Gait Training,Home Exercise Program,Joint Mobilizations, Manual Therapy,Neuromuscular Re-education,Orthotic/ Prosthetic Management,Patient/ Caregiver Education,Self-Care/ Home Management,Soft Tissue Mobilization,Taping, Therapeutic Activities, Therapeutic Exercises Modalities Cold Pack/Ice Massage,Electric Stimulation,Hot Packs, Infrared Therapy,Iontophoresis ,Traction- Mechanical Discharge Physical Therapy Discharge Reasons Goals Met
--- NOTE | 2022-07-28 17:05 | PT.OPPOC ---
Physical, Occupational & Speech Therapy At [facility] Current Diagnoses Synovitis and tenosynovitis, unspecified (07/28/22) Visit Care Team Role Provider Type Cecy Dye ND Family Provider Non-Staff Primary Care Provider Specialty: Naturopathy Address: [address] [place] [address], [id number] Email: Nick Erazo MD Attending Provider Non-Staff Referring Provider Specialty: Orthopedic Surgery Address: [address] [place], [address] Fax: Email: Plan Of Care PT-OP-T Assessment and Plan Start: 02/16/22 13:19 Freq: Status: Active Protocol: Document 07/28/22 08:16 [facility] (Rec: 07/28/22 17:05 [facility] [id number]) Physical Therapy Assessment Goals activity Short Term Goal (STG) Pt will be able to stand when needed throughout the day w/o inc foot pain 04/26-still pain noted w/ standing STG Duration pain still w/standing [facility]fp Goal (LTG) Pt will be able to fully return to hiking, biking, and walking w/o inc pain in R buttocks, LBP or R foot. 04/26- still limited from road biking, did a lot of long walking w/trip LTG Duration can if has on R shoes ROM Short Term Goal (STG) Pt will have full R hip flex w /o inc pain STG Duration achieved Housing Manager Goal (LTG) Pt will have improved lumbar motion including full R SB and rotation equal to other side. 04/26-still some limit w/SB to R w/pain, but equal rot LTG Duration achieved strength Short Term Goal (STG) Pt will be indep w/HEP to help manage symptoms at home. STG Duration achieved advancing as able Mcfp Goal (LTG) Pt will score at least 4/5 on LPM into all planes and 5/5 on all MMT including PF strength to show improved strength to improve gait mechanics. 04/26-improved 07/28-mostly achieved LTG Duration much improved all but LPM FAAM Impairment 57/84 Short Term Goal (STG) Pt will improve score to at least 67/84 to show improved functional ability. 04/26-improved to 62 STG Duration achieved Housing Manager Goal (LTG) Pt will improve score to at least 77/84 to show improved functional ability. LTG Duration achieved to 77 Assessment Summary Assessment Pt has met goals for back and foot and is having only mild issues. he does well barefoot in the house and he does well with his chacos and addidas sneakers. He is indep w/HEP and d/c d/tmostly met goals. Pt has recent knee pain that he was encouraged to see provider for to get referral for. Physical Therapy Plan Frequency and Duration Frequency of Treatment 1x Plan of Care Start Date 07/28/22 Plan of Care End Date 07/28/22 Therapeutic Interventions Therapeutic Interventions Gait Training,Home Exercise Program,Joint Mobilizations, Manual Therapy,Neuromuscular Re-education,Orthotic/ Prosthetic Management,Patient/ Caregiver Education,Self-Care/ Home Management,Soft Tissue Mobilization,Taping, Therapeutic Activities, Therapeutic Exercises Modalities Cold Pack/Ice Massage,Electric Stimulation,Hot Packs, Infrared Therapy,Iontophoresis ,Traction- Mechanical Discharge Physical Therapy Discharge Reasons Goals Met Plan of Care Dates Plan of Care Start Date 07/28/22 Plan of Care End Date 07/28/22 Electronically Signed by: Amy Alanis, PT 07/28/22 [id number] If you are in agreement with this Plan of Care, please return a signed and dated copy. I have reviewed this Plan of Care and certify that the skilled therapy services above are required to meet the patient?s needs. Physician Signature Date Printed Name and Credentials Clinical Instructor Signature Printed Name and Credentials
== END 2022-08-02 12:04 | disposition home or self-care (01) ==
LOC: PHYS 09:00
PROVIDERS: Family Provider Naturopath; PCP Naturopath; Referring Provider Orthopaedic Surgery Foot and Ankle Surgery; Visit Provider Orthopaedic Surgery Foot and Ankle Surgery
DX: M65.9 Synovitis and tenosynovitis, unspecified (principal)
CPT/HCPCS: 97010; 97110; 97140; 97162; 97535; 97750

== ENCOUNTER → 2023-01-07 10:59 | Outpatient (CLI) | payer MEDICARE, OTHER, SELFPAY ==
--- NOTE | 2023-01-07 11:01 | DI.RAD.S_ITS ---
PROCEDURE: XR LUMBAR SPINE MIN 4V INDICATIONS: BACK PAIN TECHNIQUE: 5 views of the lumbar spine were acquired, including bilateral oblique views. COMPARISON: [facility], CR, XR LUMBAR SPINE 2-3V, 07/20/2018, 9:19. FINDINGS: Bones: 5 nonrib-bearing vertebrae are present. There is normal bony alignment. Small vertebral body osteophytes. Multilevel disc space height loss. Disc space height loss at L4-L5 may be slightly increased. No vertebral body compression fractures. No suspicious bony lesions. Soft tissues: Overlying bowel gas pattern is normal. Prominent stool in the colon. No suspicious soft tissue calcifications. Oblique images: No pars defects. IMPRESSION: Mild to moderate multilevel DDD. This may be slightly progressed at the L4-L5 level. Dictated by: Shahid Corea M.D. on 01/07/2023 at 12:18 Approved by: Shahid Corea M.D. on 01/07/2023 at 12:21
== END ==
PROVIDERS: Family Provider Naturopath; PCP Nurse Practitioner Family; Referring Provider Anesthesiology; Visit Provider Anesthesiology
DX: M51.36 Other intervertebral disc degeneration, lumbar region (principal)
CPT/HCPCS: 72110

== ENCOUNTER → 2023-01-19 08:19 | Outpatient (CLI) | payer MEDICARE, OTHER, SELFPAY ==
--- NOTE | 2023-01-19 08:46 | DI.MRI.S_ITS ---
PROCEDURE: MR LUMBAR SPINE WO CON INDICATIONS: Lumbar radiculopathy TECHNIQUE: Noncontrast sagittal T1 spin echo and T2 fast echo, sagittal STIR, and T2 fast spin echo through the lumbar spine. In cases with scoliosis, additional coronal T2 fast spin echo may be performed. COMPARISON: [facility], CR, XR LUMBAR SPINE MIN 4V, 01/07/2023, 10:57. FINDINGS: Image quality: Excellent. Alignment and Curvature: Trace anterolisthesis of L4 on L5. Bone Marrow: Marrow is of normal overall signal. No acute vertebral body compression fractures. Spinal Cord: Conus medullaris terminates at the L1 level. Visualized cord demonstrates normal signal and size. Paraspinous Soft Tissues: No paravertebral masses. T12-L1: Normal appearance. L1-L2: Minimal disc bulge. Mild facet hypertrophy. No canal stenosis or foraminal stenosis. L2-L3: Disc bulge. Facet hypertrophy. No significant canal stenosis or significant foraminal stenosis. L3-L4: Moderate chronic disc height loss. Diffuse disc bulge. Bilateral facet hypertrophy. Borderline canal stenosis. Moderate right foraminal stenosis with mild flattening deformity on the exiting right L3 nerve root. L4-L5: Disc bulge. Trace anterolisthesis of L4 on L5. Prominent facet hypertrophy. [id number]-ww-xcpywdli canal stenosis. Mild bilateral foraminal stenosis. L5-S1: Disc bulge. Facet hypertrophy. No significant canal stenosis. Lhve-vw-emibmwny bilateral foraminal stenosis. IMPRESSION: 1. Multilevel underlying facet arthropathy. 2. Canal stenosis is borderline at L3-L4 and [id number] at L4-L5. 3. Multilevel foraminal narrowing as described above, moderate on the right at L3-L4. Dictated by: Reji Gonzalez M.D. on 01/19/2023 at 9:19 Approved by: Reji Gonzalez M.D. on 01/19/2023 at 9:23
== END ==
PROVIDERS: Family Provider Naturopath; PCP Nurse Practitioner Family; Referring Provider Anesthesiology; Visit Provider Anesthesiology
DX: M47.26 Other spondylosis with radiculopathy, lumbar region (principal); M48.061 Spinal stenosis, lumbar region without neurogenic claudication
CPT/HCPCS: 72148

== ENCOUNTER 2023-02-16 10:05 | Outpatient (CLI) | payer MEDICARE, OTHER, SELFPAY ==
--- NOTE | 2023-02-16 10:08 | DI.RAD.S_ITS ---
PROCEDURE: PAIN L INTERLAMINAR/CAUDAL INJ INDICATIONS: SPONDYLOSIS COMPARISON: [facility], CR, XR LUMBAR SPINE MIN 4V, 01/07/2023, 10:57. FINDINGS: 3 fluoroscopic images. Fluoroscopic spot filming was performed to verify placement of spinal needles at the L5-S1 level(s), as labeled on the films. Appropriate location(s) of the needle tip(s) was confirmed by injection of iodinated contrast. IMPRESSION: Intraoperative guidance provided. Dictated by: Shahid Corea M.D. on 02/16/2023 at 11:30 Approved by: Shahid Corea M.D. on 02/16/2023 at 11:32
[2023-02-16 10:15] VITALS: BP 150/80; PULSE 62; RESP 12; TEMP 36.8; O2SAT 97
[2023-02-16 10:30] VITALS: BP 159/87; PULSE 52; RESP 18; O2SAT 98
[2023-02-16 10:34] VITALS: BP 155/92; PULSE 60; RESP 14; O2SAT 98
[2023-02-16] MEDS: IOPAMIDOL 15 ML VIAL 3 ML INJ (10:35)
[2023-02-16] MEDS: DEXAMETHASONE 10 MG/ML VIAL 20 MG INJ (10:36)
[2023-02-16 10:40] VITALS: BP 169/89; PULSE 60; RESP 16; O2SAT 98
--- NOTE | 2023-02-16 10:42 | P.PCN_ITS ---
Date/Time/Diagnoses Date of procedure: 02/16/23 Time of procedure: 10:15 Procedure Notes Physician: Davi Luciano Total Fluoroscopy time (seconds): 13 Total sedation minutes: 0 Procedure in detail & Post-procedure care: L5-S1 Interlaminar Epidural Steroid Injection Indications: Ochoa is presenting for treatment of lumbar radiculopathy with low back and leg pain. Preoperative diagnosis: Lumbar radiculopathy Postoperative diagnosis: Same Focused Examination: Ax3 Mood and affect are normal Vital Signs: VSS Consent: Following review of allergies and potential side effects/complications, including, but not necessarily limited to, infection, allergic reaction, local tissue breakdown, stroke, temporary or permanent nerve injury, paralysis, and possible , the patient indicated that they understood and agreed to proceed.? An informed consent document was signed by the patient, witnessed by a nurse and placed in the patient's chart.? Additionally, other treatment options including medications and physical therapy were reviewed with the patient. All questions were answered. Site was then marked. Anesthesia: Local Position: Prone Monitoring: NIBP, Pulse oximetry, 3 lead EKG Needle used: 18 G 3.5? Tuohy Contrast: Isovue 300M Injectate: Dexamethasone 15 mg with 1% lidocaine 1.5 mL Technique: The skin was prepped with chloraprep and then draped in a sterile fashion. Time out was performed as per protocol. Oxygen applied via NC. Skin and subcutaneous structures of the needle entry site was then infiltrated with 3 mL of lidocaine 1%. Under AP, lateral and contralateral oblique fluoroscopic control, the Tuohy needle was guided into the L5-S1 epidural space. The space was accessed with loss of resistance technique. Isovue 300M was then injected and the spread was consistent with the epidural space. There was no evidence for intravascular or intrathecal uptake. After negative aspiration, the above- mentioned injectate was then slowly administered and the needle withdrawn. The patient expressed no unusual discomfort or paresthesias during the injection. Band-Aids applied to injection sites. EBL: less than 1 ml Complications: None Post Procedure: Patient was taken to the recovery and monitored. The patient was provided a Pain Log to continue to record the patient's response to the target- specific procedure prior to the patient's follow-up visit with the referring physician. Patient was stable upon discharge. Detailed post procedure instructions were provided. Patient was asked to call in the event of worsening pain, fever, weakness, numbness or bladder or bowel incontinence.
[2023-02-16 10:45] VITALS: BP 164/95; PULSE 53; RESP 17; O2SAT 97
== END 2023-02-16 10:46 | disposition home or self-care (01) ==
PROVIDERS: Family Provider Naturopath; PCP Nurse Practitioner Family; Referring Provider Anesthesiology; Visit Provider Anesthesiology
DX: M54.16 Radiculopathy, lumbar region (principal)
CPT/HCPCS: 62323; J1100

== ENCOUNTER 2023-04-27 09:00 | Outpatient (RCR) | payer MEDICARE, OTHER, SELFPAY ==
--- NOTE | 2022-12-01 15:07 | PT.OIE ---
Current Diagnoses Unilateral primary osteoarthritis, right knee (12/01/22) Low back pain, unspecified (12/01/22) Pain in right foot (12/01/22) Difficulty in walking, not elsewhere classified (12/01/22) Weakness (12/01/22) Past Medical History (Last Reviewed 04/25/21 @ 12:03 by RADHA Heath) Contusion of hand, left Fall Hand injury Hyperlipidemia Hypertension Sleep apnea Visit Care Team Role Provider Type Cecy Dye ND Family Provider Non-Staff Primary Care Provider Specialty: Naturopathy Address: [address] [place] [address], [id number] Email: Lance Last MD Attending Provider Non-Staff Referring Provider Specialty: Medical Address: [address] [place] [address], [id number] Email: Physical Therapy Initial Evaluation PT-OP-A Visit Information Start: 11/29/22 09:30 Freq: Status: Active Protocol: Document 12/01/22 09:05 [facility] (Rec: 12/01/22 09:57 [facility] [id number]) Out-Patient Physical Therapy Visit Information Visit Information Visit Type Initial Evaluation Visit Note 08/24 Visit Start Time 09:05 Visit Stop Time 09:48 Total Visit Minutes 43 Visit Number 1 Number of BULK MAIL TECHNICIAN Visits 0 PT-OP-B Current Condition Start: 11/29/22 09:30 Freq: Status: Active Protocol: Document 12/01/22 09:05 [facility] (Rec: 12/01/22 09:57 [facility] [id number]) Current Condition History of Current Condition Current Complaints R knee pain & foot pain History of Current Condition Pt reprots he is having r knee pain. He has historyof back and R foot pain. He had insoles made for him but he likes his hokas better. Pt saw ortho and they told him he has arthritis whcih is new since he had xrays 5 years ago . He has medial arthritis. He is going to try PT, cortizone, PRP then stem cells. Pt reports standing hurts more than walking. He [place] his [place] and R knee was pretty bad afte rthat. Pt reprots he is weak. He has not been hiking much d/ t his foot. He has been going to the gym (knee exts(in all 3 planes), HS curls, wall squat w/wt, lunges static, heel raises). Pt reports R foot is giving him trouble on/off and is shoe dependent. it is not as bad as it was whne last treated. He is considering the carbon fiber insoles to help. His custom orthotics and stewart often irritate his foot . Pt is having to gut a bathroom and redo to help son and ahs a lot more to do w/ their new house. He can only last 5 hours d/t knee and foot pain. 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 (Rec: 12/01/22 09:57 [facility] [id number]) Patient Questionnaires Lower Extremity Functional Scale LEFS Score 55 OP-PT Pain Assessment Location R knee Pain Location Details med knee and post knee Intensity 4 Scale Used worst 7/10 Description Aching Frequency Intermittent Radiating Location lat lower leg Pain Aggravating Factors Standing,Walking,Stair Climbing Other Pain Aggravating Factors ladder, construction work Pain Alleviating Factors Heat,Medication PT-OP-D Balance Start: 11/29/22 09:30 Freq: Status: Active Protocol: Document 12/01/22 09:05 [facility] (Rec: 12/01/22 09:57 [facility] [id number]) Balance Tests Single Limb Standing Single Limb- Right 30 sec w/lat lean Single Limb- Left 30 sec w/lat lean PT-OP-F Manual Assessment Start: 11/29/22 09:30 Freq: Status: Active Protocol: Document 12/01/22 09:05 [facility] (Rec: 12/01/22 09:57 [facility] [id number]) Manual Assessments Soft Tissue Assessment Soft Tissue Mobility Assessment R calf, HS, add, ITB, VL tight & tender Joint Mobility Assessment Joint Mobility Assessment IR R femur w/knee bend, ER tibia; talus R does not glide post w/knee bend PT-OP-G Mobility & Gait Start: 11/29/22 09:30 Freq: Status: Active Protocol: Document 12/01/22 09:05 [facility] (Rec: 12/01/22 09:57 [facility] [id number]) OP Gait Assessment Comments Gait Comments SB L; hard landing onto L; dec push off R; rigid upper body PT-OP-J Posture/Palpation/Skin Start: 11/29/22 09:30 Freq: Status: Active Protocol: Document 12/01/22 09:05 [facility] (Rec: 12/01/22 09:57 [facility] [id number]) Posture Evaluation [facility] Postural Classification System Lumbar Protective Mechanism Left AP 0 Lumbar Protective Mechanism Right AP 3 Lumbar Protective Mechanism Left PA 3 Lumbar Protective Mechanism Right PA 1 Comments Posture Comments varus R rear foot; SBL L trunk , R pelvic shear; slightly rotated L; IR B femur; IR R tibia PT-OP-K Range of Motion Start: 11/29/22 09:30 Freq: Status: Active Protocol: Document 12/01/22 09:05 [facility] (Rec: 12/01/22 09:57 [facility] [id number]) Knee Goniometric Range of Motion Knee Right Flexion Active (degrees) 123 Flexion Passive (degrees) 130 Extension Active (degrees) 0 Comments tight w/passive flex; stiff w/ ext Left Flexion Active (degrees) 122 Extension Active (degrees) 0 PT-OP-L Special Tests Start: 11/29/22 09:30 Freq: Status: Active Protocol: Document 12/01/22 09:05 [facility] (Rec: 12/01/22 09:57 [facility] [id number]) Special Tests Lumbar Spine Special Tests Straight Leg Raise Test Results neg; good HS range B Knee Special Tests Johnny Test Results R>L quad and RF tightness Fernandez's Compression Test Results neg R Dumas Chondromalacia Test Results pos R 4 way liagment Test Results neg R Thessaly Test 5 Degrees Test Results neg R Jasvir Test Test Results neg PT-OP-M Strength Start: 11/29/22 09:30 Freq: Status: Active Protocol: Document 12/01/22 09:05 [facility] (Rec: 12/01/22 09:57 [facility] [id number]) Hip Strength Hip Manual Muscle Testing Right Flexion (L2) 4+ Good+ Extension (S1) 4- Good- Abduction 4 Good Adduction 5 Normal External Rotation 4 Good Internal Rotation 4+ Good+ Left Flexion (L2) 4+ Good+ Extension (S1) 4+ Good+ Abduction 5 Normal Adduction 5 Normal External Rotation 4 Good Internal Rotation 4+ Good+ Knee Strength Knee Manual Muscle Testing Right Flexion (S2) 5 Normal Extension (L3) 4- Good- Left Flexion (S2) 5 Normal Extension (L3) 5 Normal Ankle/Foot Strength Ankle and Foot Manual Muscle Testing Right Dorsiflexion (L4) 5 Normal Plantarflexion (S1) 5 Normal Inversion 5 Normal Eversion (S1) 5 Normal Comments 20 heels raises w/pain in ball of foot Left Dorsiflexion (L4) 5 Normal Plantarflexion (S1) 5 Normal Inversion 5 Normal Eversion (S1) 5 Normal Comments 20 heel raises: 5/5 B toe flex /ext PT-OP-T Assessment and Plan Start: 11/29/22 09:30 Freq: Status: Active Protocol: Document 12/01/22 09:05 [facility] (Rec: 12/01/22 09:57 [facility] [id number]) Physical Therapy Assessment Rehab Potential Rehabilitation Potential Good Evaluation Complexity Number of Personal Factors/Comorbidities 3 or More Number of Body Systems Impaired 4 or More Clinical Presentation at Evaluation Evolving Impairments Impairments Activity Tolerance,Balance, Functional Activities, Functional Mobility,Gait,Pain, Posture,ROM,Soft Tissue Mobility,Strength Goals stairs Short Term Goal (STG) Pt will be able to go up/down stairs reciprocally w/o rail w /o pain STG Duration 01/23/23 Regulatory Affairs Spec Goal (LTG) Pt will be able to go up/down ladder w/o pain. 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 STG Duration 01/13/23 Custodial Goal (LTG) Pt will be able to go on hikes w/o pain greater than 1/10 in R foot or R knee. LTG Duration 02/22/23 strength Short Term Goal (STG) Pt will be indep w/HEP STG Duration 01/13/23 Regulatory Affairs Spec Goal (LTG) Pt will score 5/5 on BLE strength and at least 3/5 on LPM to show improved stability inc pt functional ability. LTG Duration 02/23/23 Assessment Summary Assessment Pt presents w/R knee pain that has been worsening and was bad a month ago when he was at [employer] w/his family. 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 His R foot cont to be a problem althoguh it is better from past PT. He does have history of LBP and does have notable SB in standing and gait that may affect the pain in his knee and foot and will need further treatment w/ PT. he cannot hike d/t this though and limits his walks, but is workign out at the gym, but does feel very weak w/LEs and does have core weakness. He has been diagnoses w/R med knee OA from ortho recently and would benefit from strengthening,s tretching, core, movement training and gait training exercises to imrvoe this. Physical Therapy Plan Frequency and Duration Frequency of Treatment 2x/wk 3 wk;1x/wk 9 Duration of treatment (weeks) 12 Plan of Care Start Date 12/01/22 Plan of Care End Date 02/23/23 Therapeutic Interventions Therapeutic Interventions Balance Training,Gait Training ,Home Exercise Program,Joint Mobilizations,Manual Therapy, Neuromuscular Re-education, Orthotic/Prosthetic Management ,Patient/Caregiver Education, Self-Care/Home Management,Soft Tissue Mobilization,Taping, Therapeutic Activities, Therapeutic Exercises Modalities Cold Pack/Ice Massage,Electric Stimulation,Hot Packs, Infrared Therapy,Iontophoresis ,Ultrasound Next Visit Focus/Plan Next Note Type Treatment Note Next Visit Plan Look at squat and lunge form. hooklying hip mobs and STM to LE, core fcailitation exercises, bridge , step up /october
--- NOTE | 2022-12-01 15:08 | PT.OPPOC ---
Physical, Occupational & Speech Therapy At [facility] Current Diagnoses Unilateral primary osteoarthritis, right knee (12/01/22) Low back pain, unspecified (12/01/22) Pain in right foot (12/01/22) Difficulty in walking, not elsewhere classified (12/01/22) Weakness (12/01/22) Visit Care Team Role Provider Type Cecy Dye ND Family Provider Non-Staff Primary Care Provider Specialty: Naturopathy Address: [address] [place] [address], [facility] Email: Lance Last MD Attending Provider Non-Staff Referring Provider Specialty: Medical Address: [address] [place] [address], [facility] Email: Plan Of Care PT-OP-T Assessment and Plan Start: 11/29/22 09:30 Freq: Status: Active Protocol: Document 12/01/22 09:05 [facility] (Rec: 12/01/22 09:57 [facility] [id number]) Physical Therapy Assessment Rehab Potential Rehabilitation Potential Good Evaluation Complexity Number of Personal Factors/Comorbidities 3 or More Number of Body Systems Impaired 4 or More Clinical Presentation at Evaluation Evolving Impairments Impairments Activity Tolerance,Balance, Functional Activities, Functional Mobility,Gait,Pain, Posture,ROM,Soft Tissue Mobility,Strength Goals stairs Short Term Goal (STG) Pt will be able to go up/down stairs reciprocally w/o rail w /o pain STG Duration 01/23/23 Light Armored Vehicle Officer Goal (LTG) Pt will be able to go up/down ladder w/o pain. 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 STG Duration 01/13/23 Light Armored Vehicle Officer Goal (LTG) Pt will be able to go on hikes w/o pain greater than 1/10 in R foot or R knee. LTG Duration 02/22/23 strength Short Term Goal (STG) Pt will be indep w/HEP STG Duration 01/13/23 Light Armored Vehicle Officer Goal (LTG) Pt will score 5/5 on BLE strength and at least 3/5 on LPM to show improved stability inc pt functional ability. LTG Duration 02/23/23 Assessment Summary Assessment Pt presents w/R knee pain that has been worsening and was bad a month ago when he was at [employer] w/his family. 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 His R foot cont to be a problem althoguh it is better from past PT. He does have history of LBP and does have notable SB in standing and gait that may affect the pain in his knee and foot and will need further treatment w/ PT. he cannot hike d/t this though and limits his walks, but is workign out at the gym, but does feel very weak w/LEs and does have core weakness. He has been diagnoses w/R med knee OA from ortho recently and would benefit from strengthening,s tretching, core, movement training and gait training exercises to imrvoe this. Physical Therapy Plan Frequency and Duration Frequency of Treatment 2x/wk 3 wk;1x/wk 9 Duration of treatment (weeks) 12 Plan of Care Start Date 12/01/22 Plan of Care End Date 02/23/23 Therapeutic Interventions Therapeutic Interventions Balance Training,Gait Training ,Home Exercise Program,Joint Mobilizations,Manual Therapy, Neuromuscular Re-education, Orthotic/Prosthetic Management ,Patient/Caregiver Education, Self-Care/Home Management,Soft Tissue Mobilization,Taping, Therapeutic Activities, Therapeutic Exercises Modalities Cold Pack/Ice Massage,Electric Stimulation,Hot Packs, Infrared Therapy,Iontophoresis ,Ultrasound Next Visit Focus/Plan Next Note Type Treatment Note Next Visit Plan Look at squat and lunge form. hooklying hip mobs and STM to LE, core fcailitation exercises, bridge w/october, step up w/alt october Plan of Care Dates Plan of Care Start Date 12/01/22 Plan of Care End Date 02/23/23 Electronically Signed by: Amy Alanis, PT 12/01/22 0975 If you are in agreement with this Plan of Care, please return a signed and dated copy. I have reviewed this Plan of Care and certify that the skilled therapy services above are required to meet the patient?s needs. Physician Signature Date Printed Name and Credentials Clinical Instructor Signature Printed Name and Credentials
--- NOTE | 2022-12-16 18:23 | PT.OTN ---
Current Diagnoses Unilateral primary osteoarthritis, right knee (12/16/22) Low back pain, unspecified (12/16/22) Pain in right foot (12/16/22) Difficulty in walking, not elsewhere classified (12/16/22) Weakness (12/16/22) Physical Therapy Treatment Note PT-OP-A Visit Information Start: 11/29/22 09:30 Freq: Status: Active Protocol: Document 12/16/22 07:30 [facility] (Rec: 12/16/22 18:23 [facility] [id number]) Out-Patient Physical Therapy Visit Information Visit Information Visit Type Treatment Note Visit Note 09/24 Visit Start Time 09:04 Visit Stop Time 09:45 Total Visit Minutes 41 Visit Number 2 Number of HOMEMAKING REHABILITATION CONSULTANT Visits 0 PT-OP-B Current Condition Start: 11/29/22 09:30 Freq: Status: Active Protocol: Document 12/01/22 09:05 [facility] (Rec: 12/01/22 09:57 [facility] [id number]) Current Condition History of Current Condition Current Complaints R knee pain & foot pain History of Current Condition Pt reprots he is having r knee pain. He has historyof back and R foot pain. He had insoles made for him but he likes his hokas better. Pt saw ortho and they told him he has arthritis whcih is new since he had xrays 5 years ago . He has medial arthritis. He is going to try PT, cortizone, PRP then stem cells. Pt reports standing hurts more than walking. He took his family to [place] and R knee was pretty bad afte rthat. Pt reprots he is weak. He has not been hiking much d/ t his foot. He has been going to the gym (knee exts(in all 3 planes), HS curls, wall squat w/wt, lunges static, heel raises). Pt reports R foot is giving him trouble on/off and is shoe dependent. it is not as bad as it was lurdes last treated. He is considering the carbon fiber insoles to help. His custom orthotics and stewart often irritate his foot . Pt is having to gut a bathroom and redo to help son and ahs a lot more to do w/ their new house. He can only last 5 hours d/t knee and foot pain. 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 Pt reports he has knot pain in his buttocks. He has tried to ice and heat. PT-OP-D Balance Start: 11/29/22 09:30 Freq: Status: Active Protocol: Document 12/01/22 09:05 [facility] (Rec: 12/01/22 09:57 [facility] [id number]) Balance Tests Single Limb Standing Single Limb- Right 30 sec w/lat lean Single Limb- Left 30 sec w/lat lean PT-OP-F Manual Assessment Start: 11/29/22 09:30 Freq: Status: Active Protocol: Document 12/01/22 09:05 [facility] (Rec: 12/01/22 09:57 [facility] [id number]) Manual Assessments Soft Tissue Assessment Soft Tissue Mobility Assessment R calf, HS, add, ITB, VL tight & tender Joint Mobility Assessment Joint Mobility Assessment IR R femur w/knee bend, ER tibia; talus R does not glide post w/knee bend PT-OP-G Mobility & Gait Start: 11/29/22 09:30 Freq: Status: Active Protocol: Document 12/01/22 09:05 [facility] (Rec: 12/01/22 09:57 [facility] [id number]) OP Gait Assessment Comments Gait Comments SB L; hard landing onto L; dec push off R; rigid upper body PT-OP-J Posture/Palpation/Skin Start: 11/29/22 09:30 Freq: Status: Active Protocol: Document 12/01/22 09:05 [facility] (Rec: 12/01/22 09:57 [facility] [id number]) Posture Evaluation [facility] Postural Classification System Lumbar Protective Mechanism Left AP 0 Lumbar Protective Mechanism Right AP 3 Lumbar Protective Mechanism Left PA 3 Lumbar Protective Mechanism Right PA 1 Comments Posture Comments varus R rear foot; SBL L trunk , R pelvic shear; slightly rotated L; IR B femur; IR R tibia PT-OP-K Range of Motion Start: 11/29/22 09:30 Freq: Status: Active Protocol: Document 12/01/22 09:05 [facility] (Rec: 12/01/22 09:57 [facility] [id number]) Knee Goniometric Range of Motion Knee Right Flexion Active (degrees) 123 Flexion Passive (degrees) 130 Extension Active (degrees) 0 Comments tight w/passive flex; stiff w/ ext Left Flexion Active (degrees) 122 Extension Active (degrees) 0 PT-OP-L Special Tests Start: 11/29/22 09:30 Freq: Status: Active Protocol: Document 12/01/22 09:05 [facility] (Rec: 12/01/22 09:57 [facility] [id number]) Special Tests Lumbar Spine Special Tests Straight Leg Raise Test Results neg; good HS range B Knee Special Tests Johnny Test Results R>L quad and RF tightness Fernandez's Compression Test Results neg R Dumas Chondromalacia Test Results pos R 4 way liagment Test Results neg R Thessaly Test 5 Degrees Test Results neg R Jasvir Test Test Results neg PT-OP-M Strength Start: 11/29/22 09:30 Freq: Status: Active Protocol: Document 12/01/22 09:05 [facility] (Rec: 12/01/22 09:57 [facility] [id number]) Hip Strength Hip Manual Muscle Testing Right Flexion (L2) 4+ Good+ Extension (S1) 4- Good- Abduction 4 Good Adduction 5 Normal External Rotation 4 Good Internal Rotation 4+ Good+ Left Flexion (L2) 4+ Good+ Extension (S1) 4+ Good+ Abduction 5 Normal Adduction 5 Normal External Rotation 4 Good Internal Rotation 4+ Good+ Knee Strength Knee Manual Muscle Testing Right Flexion (S2) 5 Normal Extension (L3) 4- Good- Left Flexion (S2) 5 Normal Extension (L3) 5 Normal Ankle/Foot Strength Ankle and Foot Manual Muscle Testing Right Dorsiflexion (L4) 5 Normal Plantarflexion (S1) 5 Normal Inversion 5 Normal Eversion (S1) 5 Normal Comments 20 heels raises w/pain in ball of foot Left Dorsiflexion (L4) 5 Normal Plantarflexion (S1) 5 Normal Inversion 5 Normal Eversion (S1) 5 Normal Comments 20 heel raises: 5/5 B toe flex /ext PT-OP-Q Treatments Start: 11/29/22 09:30 Freq: Status: Active Protocol: Document 12/16/22 07:30 [facility] (Rec: 12/16/22 18:23 [facility] [id number]) Manual Therapy Treatment Soft Tissue Mobilization HS Body Location R post lat Mobilization Type Rolling Intensity/Depth Moderate Comments w/active HS stretch glute Body Location R lat Mobilization Type Sustained Pressure Comments w/hip IR/ER hip flexor Body Location R Mobilization Type Sustained Pressure Intensity/Depth Moderate Comments w/heel slide Joint Mobilizations innominate Joint L caudal FM hip Joint R Direction on axis FM ER, inf FM Body Position Hooklying Self-Care/Home Management Treatment Education Other Education edu to use ice for back/ buttocks area, try self soft tissue release, edu to avoid some manual work as able for now. x3 min PT-OP-T Assessment and Plan Start: 11/29/22 09:30 Freq: Status: Active Protocol: Document 12/16/22 07:30 [facility] (Rec: 12/16/22 18:23 [facility] [id number]) Physical Therapy Assessment Goals stairs Short Term Goal (STG) Pt will be able to go up/down stairs reciprocally w/o rail w /o pain STG Duration 01/23/23 Manager Fraud Goal (LTG) Pt will be able to go up/down ladder w/o pain. 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 STG Duration 01/13/23 Skilled Nursing Goal (LTG) Pt will be able to go on hikes w/o pain greater than 1/10 in R foot or R knee. LTG Duration 02/22/23 strength Short Term Goal (STG) Pt will be indep w/HEP STG Duration 01/13/23 Manager Fraud Goal (LTG) Pt will score 5/5 on BLE strength and at least 3/5 on LPM to show improved stability inc pt functional ability. LTG Duration 02/23/23 Assessment Summary Assessment Pt had improve hip rotation and flex w/manual treatment today which should imrpove femoral gliding for knee tracking. his cont lumbopelvic position likely cont to contributes to his knee pain. He has post knee pain from post thigh and buttocks from this inc pain. Physical Therapy Plan Frequency and Duration Frequency of Treatment 2x/wk 3 wk;1x/wk 9 Duration of treatment (weeks) 12 Plan of Care Start Date 12/01/22 Plan of Care End Date 02/23/23 Next Visit Focus/Plan Next Note Type Treatment Note Next Visit Plan hooklying hip mobs and STM to LE, core fcailitation exercises, cont to work on LE aligment to improve gait for knee
--- NOTE | 2022-12-23 10:49 | PT.OTN ---
Current Diagnoses Unilateral primary osteoarthritis, right knee (12/23/22) Low back pain, unspecified (12/23/22) Pain in right foot (12/23/22) Difficulty in walking, not elsewhere classified (12/23/22) Weakness (12/23/22) Physical Therapy Treatment Note PT-OP-A Visit Information Start: 11/29/22 09:30 Freq: Status: Active Protocol: Document 12/23/22 10:02 [facility] (Rec: 12/23/22 10:49 [facility] [id number]) Out-Patient Physical Therapy Visit Information Visit Information Visit Type Treatment Note Visit Note 10/22 Visit Start Time 10:01 Visit Stop Time 10:44 Total Visit Minutes 43 Visit Number 3 Number of BOMBSIGHT SPECIALIST Visits 0 PT-OP-B Current Condition Start: 11/29/22 09:30 Freq: Status: Active Protocol: Document 12/01/22 09:05 [facility] (Rec: 12/01/22 09:57 [facility] [id number]) Current Condition History of Current Condition Current Complaints R knee pain & foot pain History of Current Condition Pt reprots he is having r knee pain. He has historyof back and R foot pain. He had insoles made for him but he likes his hokas better. Pt saw ortho and they told him he has arthritis whcih is new since he had xrays 5 years ago . He has medial arthritis. He is going to try PT, cortizone, PRP then stem cells. Pt reports standing hurts more than walking. He took his family to [email or web address] in october and R knee was pretty bad afte rthat. Pt reprots he is weak. He has not been hiking much d/ t his foot. He has been going to the gym (knee exts(in all 3 planes), HS curls, wall squat w/wt, lunges static, heel raises). Pt reports R foot is giving him trouble on/off and is shoe dependent. it is not as bad as it was lurdes last treated. He is considering the carbon fiber insoles to help. His custom orthotics and stewart often irritate his foot . Pt is having to gut a bathroom and redo to help son and ahs a lot more to do w/ their new house. He can only last 5 hours d/t knee and foot pain. 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 Started mm relaxor last night which helped sleep through night. He has a couple nights where he has gone to sit in a chair. PT-OP-D Balance Start: 11/29/22 09:30 Freq: Status: Active Protocol: Document 12/01/22 09:05 [facility] (Rec: 12/01/22 09:57 [facility] [id number]) Balance Tests Single Limb Standing Single Limb- Right 30 sec w/lat lean Single Limb- Left 30 sec w/lat lean PT-OP-F Manual Assessment Start: 11/29/22 09:30 Freq: Status: Active Protocol: Document 12/01/22 09:05 [facility] (Rec: 12/01/22 09:57 [facility] [id number]) Manual Assessments Soft Tissue Assessment Soft Tissue Mobility Assessment R calf, HS, add, ITB, VL tight & tender Joint Mobility Assessment Joint Mobility Assessment IR R femur w/knee bend, ER tibia; talus R does not glide post w/knee bend PT-OP-G Mobility & Gait Start: 11/29/22 09:30 Freq: Status: Active Protocol: Document 12/01/22 09:05 [facility] (Rec: 12/01/22 09:57 [facility] [id number]) OP Gait Assessment Comments Gait Comments SB L; hard landing onto L; dec push off R; rigid upper body PT-OP-J Posture/Palpation/Skin Start: 11/29/22 09:30 Freq: Status: Active Protocol: Document 12/01/22 09:05 [facility] (Rec: 12/01/22 09:57 [facility] [id number]) Posture Evaluation Kary Postural Classification System Lumbar Protective Mechanism Left AP 0 Lumbar Protective Mechanism Right AP 3 Lumbar Protective Mechanism Left PA 3 Lumbar Protective Mechanism Right PA 1 Comments Posture Comments varus R rear foot; SBL L trunk , R pelvic shear; slightly rotated L; IR B femur; IR R tibia PT-OP-K Range of Motion Start: 11/29/22 09:30 Freq: Status: Active Protocol: Document 12/01/22 09:05 [facility] (Rec: 12/01/22 09:57 [facility] [id number]) Knee Goniometric Range of Motion Knee Right Flexion Active (degrees) 123 Flexion Passive (degrees) 130 Extension Active (degrees) 0 Comments tight w/passive flex; stiff w/ ext Left Flexion Active (degrees) 122 Extension Active (degrees) 0 PT-OP-L Special Tests Start: 11/29/22 09:30 Freq: Status: Active Protocol: Document 12/01/22 09:05 [facility] (Rec: 12/01/22 09:57 [facility] [id number]) Special Tests Lumbar Spine Special Tests Straight Leg Raise Test Results neg; good HS range B Knee Special Tests Johnny Test Results R>L quad and RF tightness Fernandez's Compression Test Results neg R Dumas Chondromalacia Test Results pos R 4 way liagment Test Results neg R Thessaly Test 5 Degrees Test Results neg R Jasvir Test Test Results neg PT-OP-M Strength Start: 11/29/22 09:30 Freq: Status: Active Protocol: Document 12/01/22 09:05 [facility] (Rec: 12/01/22 09:57 [facility] [id number]) Hip Strength Hip Manual Muscle Testing Right Flexion (L2) 4+ Good+ Extension (S1) 4- Good- Abduction 4 Good Adduction 5 Normal External Rotation 4 Good Internal Rotation 4+ Good+ Left Flexion (L2) 4+ Good+ Extension (S1) 4+ Good+ Abduction 5 Normal Adduction 5 Normal External Rotation 4 Good Internal Rotation 4+ Good+ Knee Strength Knee Manual Muscle Testing Right Flexion (S2) 5 Normal Extension (L3) 4- Good- Left Flexion (S2) 5 Normal Extension (L3) 5 Normal Ankle/Foot Strength Ankle and Foot Manual Muscle Testing Right Dorsiflexion (L4) 5 Normal Plantarflexion (S1) 5 Normal Inversion 5 Normal Eversion (S1) 5 Normal Comments 20 heels raises w/pain in ball of foot Left Dorsiflexion (L4) 5 Normal Plantarflexion (S1) 5 Normal Inversion 5 Normal Eversion (S1) 5 Normal Comments 20 heel raises: 5/5 B toe flex /ext PT-OP-Q Treatments Start: 11/29/22 09:30 Freq: Status: Active Protocol: Document 12/23/22 10:02 [facility] (Rec: 12/23/22 10:49 [facility] [id number]) Manual Therapy Treatment Soft Tissue Mobilization lumbar Body Location B ES Mobilization Type Rolling,Strumming Intensity/Depth Moderate Joint Mobilizations sacrum Joint R caudal & L UPA FM innominate Comments L caudal FM prone, R IR FM & abd FM hip Direction on axis FM IR B prone, R inf FM hooklying; R abd s/l FM PT-OP-T Assessment and Plan Start: 11/29/22 09:30 Freq: Status: Active Protocol: Document 12/23/22 10:02 [facility] (Rec: 12/23/22 10:49 [facility] [id number]) Physical Therapy Assessment Goals stairs Short Term Goal (STG) Pt will be able to go up/down stairs reciprocally w/o rail w /o pain STG Duration 01/23/23 Group Home Goal (LTG) Pt will be able to go up/down ladder w/o pain. 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 STG Duration 01/13/23 Group Home Goal (LTG) Pt will be able to go on hikes w/o pain greater than 1/10 in R foot or R knee. LTG Duration 02/22/23 strength Short Term Goal (STG) Pt will be indep w/HEP STG Duration 01/13/23 Group Home Goal (LTG) Pt will score 5/5 on BLE strength and at least 3/5 on LPM to show improved stability inc pt functional ability. LTG Duration 02/23/23 Assessment Summary Assessment Pt had improved IR B hips w/ manual treatment along w/R pelvic elevation/depression. He still remains higher on L iliac crest in standing. Physical Therapy Plan Frequency and Duration Frequency of Treatment 2x/wk 3 wk;1x/wk 9 Duration of treatment (weeks) 12 Plan of Care Start Date 12/01/22 Plan of Care End Date 02/23/23 Next Visit Focus/Plan Next Note Type Treatment Note Next Visit Plan core fcailitation exercises, cont to work on LE aligment to improve gait for knee
--- NOTE | 2022-12-28 18:10 | PT.OTN ---
Current Diagnoses Unilateral primary osteoarthritis, right knee (12/28/22) Low back pain, unspecified (12/28/22) Pain in right foot (12/28/22) Difficulty in walking, not elsewhere classified (12/28/22) Weakness (12/28/22) Physical Therapy Treatment Note PT-OP-A Visit Information Start: 11/29/22 09:30 Freq: Status: Active Protocol: Document 12/28/22 14:16 [facility] (Rec: 12/28/22 18:10 [facility] [id number]) Out-Patient Physical Therapy Visit Information Visit Information Visit Type Treatment Note Visit Note 11/22 Visit Start Time 14:17 Visit Stop Time 15:00 Total Visit Minutes 43 Visit Number 4 Number of MORGUE KEEPER Visits 0 PT-OP-B Current Condition Start: 11/29/22 09:30 Freq: Status: Active Protocol: Document 12/01/22 09:05 [facility] (Rec: 12/01/22 09:57 [facility] [id number]) Current Condition History of Current Condition Current Complaints R knee pain & foot pain History of Current Condition Pt reprots he is having r knee pain. He has historyof back and R foot pain. He had insoles made for him but he likes his hokas better. Pt saw ortho and they told him he has arthritis whcih is new since he had xrays 5 years ago . He has medial arthritis. He is going to try PT, cortizone, PRP then stem cells. Pt reports standing hurts more than walking. He took his family to [place] in october and R knee was pretty bad afte rthat. Pt reprots he is weak. He has not been hiking much d/ t his foot. He has been going to the gym (knee exts(in all 3 planes), HS curls, wall squat w/wt, lunges static, heel raises). Pt reports R foot is giving him trouble on/off and is shoe dependent. it is not as bad as it was lurdes last treated. He is considering the carbon fiber insoles to help. His custom orthotics and stewart often irritate his foot . Pt is having to gut a bathroom and redo to help son and ahs a lot more to do w/ their new house. He can only last 5 hours d/t knee and foot pain. 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 Still apin down post leg to knee. At night in pelvis/glutes and during day more in post thigh. R foot feels better today. Got in the pool yesterday and it felt okay except w/moving suddenly PT-OP-D Balance Start: 11/29/22 09:30 Freq: Status: Active Protocol: Document 12/01/22 09:05 [facility] (Rec: 12/01/22 09:57 [facility] [id number]) Balance Tests Single Limb Standing Single Limb- Right 30 sec w/lat lean Single Limb- Left 30 sec w/lat lean PT-OP-F Manual Assessment Start: 11/29/22 09:30 Freq: Status: Active Protocol: Document 12/01/22 09:05 [facility] (Rec: 12/01/22 09:57 [facility] [id number]) Manual Assessments Soft Tissue Assessment Soft Tissue Mobility Assessment R calf, HS, add, ITB, VL tight & tender Joint Mobility Assessment Joint Mobility Assessment IR R femur w/knee bend, ER tibia; talus R does not glide post w/knee bend PT-OP-G Mobility & Gait Start: 11/29/22 09:30 Freq: Status: Active Protocol: Document 12/01/22 09:05 [facility] (Rec: 12/01/22 09:57 [facility] [id number]) OP Gait Assessment Comments Gait Comments SB L; hard landing onto L; dec push off R; rigid upper body PT-OP-J Posture/Palpation/Skin Start: 11/29/22 09:30 Freq: Status: Active Protocol: Document 12/01/22 09:05 [facility] (Rec: 12/01/22 09:57 [facility] [id number]) Posture Evaluation [facility] Postural Classification System Lumbar Protective Mechanism Left AP 0 Lumbar Protective Mechanism Right AP 3 Lumbar Protective Mechanism Left PA 3 Lumbar Protective Mechanism Right PA 1 Comments Posture Comments varus R rear foot; SBL L trunk , R pelvic shear; slightly rotated L; IR B femur; IR R tibia PT-OP-K Range of Motion Start: 11/29/22 09:30 Freq: Status: Active Protocol: Document 12/01/22 09:05 [facility] (Rec: 12/01/22 09:57 [facility] [id number]) Knee Goniometric Range of Motion Knee Right Flexion Active (degrees) 123 Flexion Passive (degrees) 130 Extension Active (degrees) 0 Comments tight w/passive flex; stiff w/ ext Left Flexion Active (degrees) 122 Extension Active (degrees) 0 PT-OP-L Special Tests Start: 11/29/22 09:30 Freq: Status: Active Protocol: Document 12/01/22 09:05 [facility] (Rec: 12/01/22 09:57 [facility] [id number]) Special Tests Lumbar Spine Special Tests Straight Leg Raise Test Results neg; good HS range B Knee Special Tests Johnny Test Results R>L quad and RF tightness Fernandez's Compression Test Results neg R Dumas Chondromalacia Test Results pos R 4 way liagment Test Results neg R Thessaly Test 5 Degrees Test Results neg R Jasvir Test Test Results neg PT-OP-M Strength Start: 11/29/22 09:30 Freq: Status: Active Protocol: Document 12/01/22 09:05 [facility] (Rec: 12/01/22 09:57 [facility] [id number]) Hip Strength Hip Manual Muscle Testing Right Flexion (L2) 4+ Good+ Extension (S1) 4- Good- Abduction 4 Good Adduction 5 Normal External Rotation 4 Good Internal Rotation 4+ Good+ Left Flexion (L2) 4+ Good+ Extension (S1) 4+ Good+ Abduction 5 Normal Adduction 5 Normal External Rotation 4 Good Internal Rotation 4+ Good+ Knee Strength Knee Manual Muscle Testing Right Flexion (S2) 5 Normal Extension (L3) 4- Good- Left Flexion (S2) 5 Normal Extension (L3) 5 Normal Ankle/Foot Strength Ankle and Foot Manual Muscle Testing Right Dorsiflexion (L4) 5 Normal Plantarflexion (S1) 5 Normal Inversion 5 Normal Eversion (S1) 5 Normal Comments 20 heels raises w/pain in ball of foot Left Dorsiflexion (L4) 5 Normal Plantarflexion (S1) 5 Normal Inversion 5 Normal Eversion (S1) 5 Normal Comments 20 heel raises: 5/5 B toe flex /ext PT-OP-Q Treatments Start: 11/29/22 09:30 Freq: Status: Active Protocol: Document 12/28/22 14:16 [facility] (Rec: 12/28/22 18:10 [facility] [id number]) Gait Training Gait Activity wt shifts Comments focus to L w/wt shift fwd as R was painful; cues to avoid lat lean L w/L WB. cholding counter x3 min Manual Therapy Treatment Soft Tissue Mobilization lumbar Body Location R ES/QL Mobilization Type Rolling,Strumming Intensity/Depth Moderate hip flexor Body Location B Mobilization Type Sustained Pressure Intensity/Depth Moderate Comments w/AAROM hip flex/add Joint Mobilizations lumbar Comments L4 and 5 SUMAYA FM sacrum Comments R Pa in seated FM innominate Comments R ext s/l FM; R PA FM seated PT-OP-T Assessment and Plan Start: 11/29/22 09:30 Freq: Status: Active Protocol: Document 12/28/22 14:16 [facility] (Rec: 12/28/22 18:10 [facility] [id number]) Physical Therapy Assessment Goals stairs Short Term Goal (STG) Pt will be able to go up/down stairs reciprocally w/o rail w /o pain STG Duration 01/23/23 Exterminator Goal (LTG) Pt will be able to go up/down ladder w/o pain. 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 STG Duration 01/13/23 Exterminator Goal (LTG) Pt will be able to go on hikes w/o pain greater than 1/10 in R foot or R knee. LTG Duration 02/22/23 strength Short Term Goal (STG) Pt will be indep w/HEP STG Duration 01/13/23 Exterminator Goal (LTG) Pt will score 5/5 on BLE strength and at least 3/5 on LPM to show improved stability inc pt functional ability. LTG Duration 02/23/23 Assessment Summary Assessment Pt was able to SB R ins eated w/o pain in glute after manual where it was painful prior. He has less pain and improved sitting position w/more wt fwd onto pelvic floor vs on sacrum after manual. Imrpoved gait also and imrpoved standign posture w/less L lat lean. Physical Therapy Plan Frequency and Duration Frequency of Treatment 2x/wk 3 wk;1x/wk 9 Duration of treatment (weeks) 12 Plan of Care Start Date 12/01/22 Plan of Care End Date 02/23/23 Next Visit Focus/Plan Next Note Type Treatment Note Next Visit Plan core fcailitation exercises, cont to work on LE aligment to improve gait for knee
--- NOTE | 2022-12-30 12:28 | PT.OTN ---
Current Diagnoses Unilateral primary osteoarthritis, right knee (12/30/22) Low back pain, unspecified (12/30/22) Pain in right foot (12/30/22) Difficulty in walking, not elsewhere classified (12/30/22) Weakness (12/30/22) Physical Therapy Treatment Note PT-OP-A Visit Information Start: 11/29/22 09:30 Freq: Status: Active Protocol: Document 12/30/22 10:00 [facility] (Rec: 12/30/22 12:28 [facility] [id number]) Out-Patient Physical Therapy Visit Information Visit Information Visit Type Treatment Note Visit Note 12/22 Visit Start Time 10:01 Visit Stop Time 10:45 Total Visit Minutes 44 Visit Number 5 Number of EMISSIONS REPAIR TECHNICIAN Visits 0 PT-OP-B Current Condition Start: 11/29/22 09:30 Freq: Status: Active Protocol: Document 12/01/22 09:05 [facility] (Rec: 12/01/22 09:57 [facility] [id number]) Current Condition History of Current Condition Current Complaints R knee pain & foot pain History of Current Condition Pt reprots he is having r knee pain. He has historyof back and R foot pain. He had insoles made for him but he likes his hokas better. Pt saw ortho and they told him he has arthritis whcih is new since he had xrays 5 years ago . He has medial arthritis. He is going to try PT, cortizone, PRP then stem cells. Pt reports standing hurts more than walking. He took his family to [place] in october and R knee was pretty bad afte rthat. Pt reprots he is weak. He has not been hiking much d/ t his foot. He has been going to the gym (knee exts(in all 3 planes), HS curls, wall squat w/wt, lunges static, heel raises). Pt reports R foot is giving him trouble on/off and is shoe dependent. it is not as bad as it was lurdes last treated. He is considering the carbon fiber insoles to help. His custom orthotics and stewart often irritate his foot . Pt is having to gut a bathroom and redo to help son and ahs a lot more to do w/ their new house. He can only last 5 hours d/t knee and foot pain. 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 PT-OP-D Balance Start: 11/29/22 09:30 Freq: Status: Active Protocol: Document 12/01/22 09:05 [facility] (Rec: 12/01/22 09:57 [facility] [id number]) Balance Tests Single Limb Standing Single Limb- Right 30 sec w/lat lean Single Limb- Left 30 sec w/lat lean PT-OP-F Manual Assessment Start: 11/29/22 09:30 Freq: Status: Active Protocol: Document 12/01/22 09:05 [facility] (Rec: 12/01/22 09:57 [facility] [id number]) Manual Assessments Soft Tissue Assessment Soft Tissue Mobility Assessment R calf, HS, add, ITB, VL tight & tender Joint Mobility Assessment Joint Mobility Assessment IR R femur w/knee bend, ER tibia; talus R does not glide post w/knee bend PT-OP-G Mobility & Gait Start: 11/29/22 09:30 Freq: Status: Active Protocol: Document 12/01/22 09:05 [facility] (Rec: 12/01/22 09:57 [facility] [id number]) OP Gait Assessment Comments Gait Comments SB L; hard landing onto L; dec push off R; rigid upper body PT-OP-J Posture/Palpation/Skin Start: 11/29/22 09:30 Freq: Status: Active Protocol: Document 12/01/22 09:05 [facility] (Rec: 12/01/22 09:57 [facility] [id number]) Posture Evaluation Kary Postural Classification System Lumbar Protective Mechanism Left AP 0 Lumbar Protective Mechanism Right AP 3 Lumbar Protective Mechanism Left PA 3 Lumbar Protective Mechanism Right PA 1 Comments Posture Comments varus R rear foot; SBL L trunk , R pelvic shear; slightly rotated L; IR B femur; IR R tibia PT-OP-K Range of Motion Start: 11/29/22 09:30 Freq: Status: Active Protocol: Document 12/01/22 09:05 [facility] (Rec: 12/01/22 09:57 [facility] [id number]) Knee Goniometric Range of Motion Knee Right Flexion Active (degrees) 123 Flexion Passive (degrees) 130 Extension Active (degrees) 0 Comments tight w/passive flex; stiff w/ ext Left Flexion Active (degrees) 122 Extension Active (degrees) 0 PT-OP-L Special Tests Start: 11/29/22 09:30 Freq: Status: Active Protocol: Document 12/01/22 09:05 [facility] (Rec: 12/01/22 09:57 [facility] [id number]) Special Tests Lumbar Spine Special Tests Straight Leg Raise Test Results neg; good HS range B Knee Special Tests Johnny Test Results R>L quad and RF tightness Fernandez's Compression Test Results neg R Dumas Chondromalacia Test Results pos R 4 way liagment Test Results neg R Thessaly Test 5 Degrees Test Results neg R Jasvir Test Test Results neg PT-OP-M Strength Start: 11/29/22 09:30 Freq: Status: Active Protocol: Document 12/01/22 09:05 [facility] (Rec: 12/01/22 09:57 [facility] [id number]) Hip Strength Hip Manual Muscle Testing Right Flexion (L2) 4+ Good+ Extension (S1) 4- Good- Abduction 4 Good Adduction 5 Normal External Rotation 4 Good Internal Rotation 4+ Good+ Left Flexion (L2) 4+ Good+ Extension (S1) 4+ Good+ Abduction 5 Normal Adduction 5 Normal External Rotation 4 Good Internal Rotation 4+ Good+ Knee Strength Knee Manual Muscle Testing Right Flexion (S2) 5 Normal Extension (L3) 4- Good- Left Flexion (S2) 5 Normal Extension (L3) 5 Normal Ankle/Foot Strength Ankle and Foot Manual Muscle Testing Right Dorsiflexion (L4) 5 Normal Plantarflexion (S1) 5 Normal Inversion 5 Normal Eversion (S1) 5 Normal Comments 20 heels raises w/pain in ball of foot Left Dorsiflexion (L4) 5 Normal Plantarflexion (S1) 5 Normal Inversion 5 Normal Eversion (S1) 5 Normal Comments 20 heel raises: 5/5 B toe flex /ext PT-OP-Q Treatments Start: 11/29/22 09:30 Freq: Status: Active Protocol: Document 12/30/22 10:00 [facility] (Rec: 12/30/22 12:28 [facility] [id number]) Therapeutic Exercises Supine Exercises bridge Supine Exercise Name approximation facilitaiton and facilitaiton at trunk to indep Side bilateral Reps/Minutes 24 october Supine Exercise Name alt Side bilateral Reps/Minutes 10 Comments cues for core LTR Side bilateral Reps/Minutes 8 Comments cues for segmental movemtn Manual Therapy Treatment Soft Tissue Mobilization LE Body Location thigh circumfrential Mobilization Type Rolling,Strumming,Sustained Pressure Intensity/Depth Moderate Body Position Hooklying Comments w/ ER add Body Location R Mobilization Type Rolling Intensity/Depth Moderate Comments w/hip flex and ER HS Body Location R proximal borders of ea Mobilization Type Rolling Intensity/Depth Moderate Comments w/active HS stretch hip flexor Body Location R Mobilization Type Sustained Pressure Intensity/Depth Moderate Comments w/AAROM hip flex/add Joint Mobilizations hip Comments R hooklying inf and IR FM PT-OP-T Assessment and Plan Start: 11/29/22 09:30 Freq: Status: Active Protocol: Document 12/30/22 10:00 [facility] (Rec: 12/30/22 12:28 [facility] [id number]) Physical Therapy Assessment Goals stairs Short Term Goal (STG) Pt will be able to go up/down stairs reciprocally w/o rail w /o pain STG Duration 01/23/23 Residential Goal (LTG) Pt will be able to go up/down ladder w/o pain. 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 STG Duration 01/13/23 Residential Goal (LTG) Pt will be able to go on hikes w/o pain greater than 1/10 in R foot or R knee. LTG Duration 02/22/23 strength Short Term Goal (STG) Pt will be indep w/HEP STG Duration 01/13/23 Residential Goal (LTG) Pt will score 5/5 on BLE strength and at least 3/5 on LPM to show improved stability inc pt functional ability. LTG Duration 02/23/23 Assessment Summary Assessment Pt had imrpoved hip ER and improved flex in neutral position w/dec pain. THis should help pt ability to squat as it will impove femoral tracking. Pt had pain w/passive ER hooklying and flex in neutral but was able to imprvoe range after manual Physical Therapy Plan Frequency and Duration Frequency of Treatment 2x/wk 3 wk;1x/wk 9 Duration of treatment (weeks) 12 Plan of Care Start Date 12/01/22 Plan of Care End Date 02/23/23 Next Visit Focus/Plan Next Note Type Treatment Note Next Visit Plan review core fcailitation exercises, cont to work on LE aligment to improve gait for knee
--- NOTE | 2023-01-04 10:51 | PT.OTN ---
Current Diagnoses Unilateral primary osteoarthritis, right knee (01/04/23) Low back pain, unspecified (01/04/23) Pain in right foot (01/04/23) Difficulty in walking, not elsewhere classified (01/04/23) Weakness (01/04/23) Physical Therapy Treatment Note PT-OP-A Visit Information Start: 11/29/22 09:30 Freq: Status: Active Protocol: Document 01/04/23 10:05 [facility] (Rec: 01/04/23 10:51 [facility] [id number]) Out-Patient Physical Therapy Visit Information Visit Information Visit Type Treatment Note Visit Note 01/22 Visit Start Time 10:04 Visit Stop Time 10:45 Total Visit Minutes 41 Visit Number 6 Number of YARN PACKER Visits 0 PT-OP-B Current Condition Start: 11/29/22 09:30 Freq: Status: Active Protocol: Document 12/01/22 09:05 [facility] (Rec: 12/01/22 09:57 [facility] [id number]) Current Condition History of Current Condition Current Complaints R knee pain & foot pain History of Current Condition Pt reprots he is having r knee pain. He has historyof back and R foot pain. He had insoles made for him but he likes his hokas better. Pt saw ortho and they told him he has arthritis whcih is new since he had xrays 5 years ago . He has medial arthritis. He is going to try PT, cortizone, PRP then stem cells. Pt reports standing hurts more than walking. He took his family to [place] in october and R knee was pretty bad afte rthat. Pt reprots he is weak. He has not been hiking much d/ t his foot. He has been going to the gym (knee exts(in all 3 planes), HS curls, wall squat w/wt, lunges static, heel raises). Pt reports R foot is giving him trouble on/off and is shoe dependent. it is not as bad as it was lurdes last treated. He is considering the carbon fiber insoles to help. His custom orthotics and stewart often irritate his foot . Pt is having to gut a bathroom and redo to help son and ahs a lot more to do w/ their new house. He can only last 5 hours d/t knee and foot pain. 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 He was doing well prior to this and pain was down overall. PT-OP-D Balance Start: 11/29/22 09:30 Freq: Status: Active Protocol: Document 12/01/22 09:05 [facility] (Rec: 12/01/22 09:57 [facility] [id number]) Balance Tests Single Limb Standing Single Limb- Right 30 sec w/lat lean Single Limb- Left 30 sec w/lat lean PT-OP-F Manual Assessment Start: 11/29/22 09:30 Freq: Status: Active Protocol: Document 12/01/22 09:05 [facility] (Rec: 12/01/22 09:57 [facility] [id number]) Manual Assessments Soft Tissue Assessment Soft Tissue Mobility Assessment R calf, HS, add, ITB, VL tight & tender Joint Mobility Assessment Joint Mobility Assessment IR R femur w/knee bend, ER tibia; talus R does not glide post w/knee bend PT-OP-G Mobility & Gait Start: 11/29/22 09:30 Freq: Status: Active Protocol: Document 12/01/22 09:05 [facility] (Rec: 12/01/22 09:57 [facility] [id number]) OP Gait Assessment Comments Gait Comments SB L; hard landing onto L; dec push off R; rigid upper body PT-OP-J Posture/Palpation/Skin Start: 11/29/22 09:30 Freq: Status: Active Protocol: Document 12/01/22 09:05 [facility] (Rec: 12/01/22 09:57 [facility] [id number]) Posture Evaluation Kary Postural Classification System Lumbar Protective Mechanism Left AP 0 Lumbar Protective Mechanism Right AP 3 Lumbar Protective Mechanism Left PA 3 Lumbar Protective Mechanism Right PA 1 Comments Posture Comments varus R rear foot; SBL L trunk , R pelvic shear; slightly rotated L; IR B femur; IR R tibia PT-OP-K Range of Motion Start: 11/29/22 09:30 Freq: Status: Active Protocol: Document 12/01/22 09:05 [facility] (Rec: 12/01/22 09:57 [facility] [id number]) Knee Goniometric Range of Motion Knee Right Flexion Active (degrees) 123 Flexion Passive (degrees) 130 Extension Active (degrees) 0 Comments tight w/passive flex; stiff w/ ext Left Flexion Active (degrees) 122 Extension Active (degrees) 0 PT-OP-L Special Tests Start: 11/29/22 09:30 Freq: Status: Active Protocol: Document 12/01/22 09:05 [facility] (Rec: 12/01/22 09:57 [facility] [id number]) Special Tests Lumbar Spine Special Tests Straight Leg Raise Test Results neg; good HS range B Knee Special Tests Johnny Test Results R>L quad and RF tightness Fernandez's Compression Test Results neg R Dumas Chondromalacia Test Results pos R 4 way liagment Test Results neg R Thessaly Test 5 Degrees Test Results neg R Jasvir Test Test Results neg PT-OP-M Strength Start: 11/29/22 09:30 Freq: Status: Active Protocol: Document 12/01/22 09:05 [facility] (Rec: 12/01/22 09:57 [facility] [id number]) Hip Strength Hip Manual Muscle Testing Right Flexion (L2) 4+ Good+ Extension (S1) 4- Good- Abduction 4 Good Adduction 5 Normal External Rotation 4 Good Internal Rotation 4+ Good+ Left Flexion (L2) 4+ Good+ Extension (S1) 4+ Good+ Abduction 5 Normal Adduction 5 Normal External Rotation 4 Good Internal Rotation 4+ Good+ Knee Strength Knee Manual Muscle Testing Right Flexion (S2) 5 Normal Extension (L3) 4- Good- Left Flexion (S2) 5 Normal Extension (L3) 5 Normal Ankle/Foot Strength Ankle and Foot Manual Muscle Testing Right Dorsiflexion (L4) 5 Normal Plantarflexion (S1) 5 Normal Inversion 5 Normal Eversion (S1) 5 Normal Comments 20 heels raises w/pain in ball of foot Left Dorsiflexion (L4) 5 Normal Plantarflexion (S1) 5 Normal Inversion 5 Normal Eversion (S1) 5 Normal Comments 20 heel raises: 5/5 B toe flex /ext PT-OP-Q Treatments Start: 11/29/22 09:30 Freq: Status: Active Protocol: Document 01/04/23 10:05 [facility] (Rec: 01/04/23 10:51 [facility] [id number]) Manual Therapy Treatment Soft Tissue Mobilization lumbar Comments superficial fascia MFR progressed to STM along bony contors to paralells along QL & ES R>L Joint Mobilizations lumbar Comments L1 upglide L FM and T12 downglide L and upglide R FM innominate Comments R s/L ER & add FM PT-OP-T Assessment and Plan Start: 11/29/22 09:30 Freq: Status: Active Protocol: Document 01/04/23 10:05 [facility] (Rec: 01/04/23 10:51 [facility] [id number]) Physical Therapy Assessment Goals stairs Short Term Goal (STG) Pt will be able to go up/down stairs reciprocally w/o rail w /o pain STG Duration 01/23/23 Senior Living Goal (LTG) Pt will be able to go up/down ladder w/o pain. 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 STG Duration 01/13/23 Senior Living Goal (LTG) Pt will be able to go on hikes w/o pain greater than 1/10 in R foot or R knee. LTG Duration 02/22/23 strength Short Term Goal (STG) Pt will be indep w/HEP STG Duration 01/13/23 Rn Surgery Goal (LTG) Pt will score 5/5 on BLE strength and at least 3/5 on LPM to show improved stability inc pt functional ability. 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 He felt less locked up in standing after manual and had imrpoved iliac crest height and inc wt into RLE. Physical Therapy Plan Frequency and Duration Frequency of Treatment 2x/wk 3 wk;1x/wk 9 Duration of treatment (weeks) 12 Plan of Care Start Date 12/01/22 Plan of Care End Date 02/23/23 Next Visit Focus/Plan Next Note Type Treatment Note Next Visit Plan review core fcailitation exercises, cont to work on LE aligment to improve gait for knee
--- NOTE | 2023-01-06 13:32 | PT.OTN ---
Current Diagnoses Unilateral primary osteoarthritis, right knee (01/06/23) Low back pain, unspecified (01/06/23) Pain in right foot (01/06/23) Difficulty in walking, not elsewhere classified (01/06/23) Weakness (01/06/23) Physical Therapy Treatment Note PT-OP-A Visit Information Start: 11/29/22 09:30 Freq: Status: Active Protocol: Document 01/06/23 10:03 [facility] (Rec: 01/06/23 13:32 [facility] [id number]) Out-Patient Physical Therapy Visit Information Visit Information Visit Type Treatment Note Visit Note 02/21 Visit Start Time 10:03 Visit Stop Time 10:46 Total Visit Minutes 43 Visit Number 7 Number of HOUSEHOLD COOK Visits 0 PT-OP-B Current Condition Start: 11/29/22 09:30 Freq: Status: Active Protocol: Document 12/01/22 09:05 [facility] (Rec: 12/01/22 09:57 [facility] [id number]) Current Condition History of Current Condition Current Complaints R knee pain & foot pain History of Current Condition Pt reprots he is having r knee pain. He has historyof back and R foot pain. He had insoles made for him but he likes his hokas better. Pt saw ortho and they told him he has arthritis whcih is new since he had xrays 5 years ago . He has medial arthritis. He is going to try PT, cortizone, PRP then stem cells. Pt reports standing hurts more than walking. He took his family to [employer] in october and R knee was pretty bad afte rthat. Pt reprots he is weak. He has not been hiking much d/ t his foot. He has been going to the gym (knee exts(in all 3 planes), HS curls, wall squat w/wt, lunges static, heel raises). Pt reports R foot is giving him trouble on/off and is shoe dependent. it is not as bad as it was lurdes last treated. He is considering the carbon fiber insoles to help. His custom orthotics and stewart often irritate his foot . Pt is having to gut a bathroom and redo to help son and ahs a lot more to do w/ their new house. He can only last 5 hours d/t knee and foot pain. 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 PT-OP-C Subjective Start: 11/29/22 09:30 Freq: Status: Active Protocol: Document 01/06/23 10:03 [facility] (Rec: 01/06/23 13:32 [facility] [id number]) OP-PT Subjective Patient Comments Patient Comments Pt reports he felt better where he feels less locked up after acupuncture and massage yesterday but feels like a lot of mm tightness still in glute and post HS PT-OP-D Balance Start: 11/29/22 09:30 Freq: Status: Active Protocol: Document 12/01/22 09:05 [facility] (Rec: 12/01/22 09:57 [facility] [id number]) Balance Tests Single Limb Standing Single Limb- Right 30 sec w/lat lean Single Limb- Left 30 sec w/lat lean PT-OP-F Manual Assessment Start: 11/29/22 09:30 Freq: Status: Active Protocol: Document 12/01/22 09:05 [facility] (Rec: 12/01/22 09:57 [facility] [id number]) Manual Assessments Soft Tissue Assessment Soft Tissue Mobility Assessment R calf, HS, add, ITB, VL tight & tender Joint Mobility Assessment Joint Mobility Assessment IR R femur w/knee bend, ER tibia; talus R does not glide post w/knee bend PT-OP-G Mobility & Gait Start: 11/29/22 09:30 Freq: Status: Active Protocol: Document 12/01/22 09:05 [facility] (Rec: 12/01/22 09:57 [facility] [id number]) OP Gait Assessment Comments Gait Comments SB L; hard landing onto L; dec push off R; rigid upper body PT-OP-J Posture/Palpation/Skin Start: 11/29/22 09:30 Freq: Status: Active Protocol: Document 12/01/22 09:05 [facility] (Rec: 12/01/22 09:57 [facility] [id number]) Posture Evaluation [facility] Postural Classification System Lumbar Protective Mechanism Left AP 0 Lumbar Protective Mechanism Right AP 3 Lumbar Protective Mechanism Left PA 3 Lumbar Protective Mechanism Right PA 1 Comments Posture Comments varus R rear foot; SBL L trunk , R pelvic shear; slightly rotated L; IR B femur; IR R tibia PT-OP-K Range of Motion Start: 11/29/22 09:30 Freq: Status: Active Protocol: Document 12/01/22 09:05 [facility] (Rec: 12/01/22 09:57 [facility] [id number]) Knee Goniometric Range of Motion Knee Right Flexion Active (degrees) 123 Flexion Passive (degrees) 130 Extension Active (degrees) 0 Comments tight w/passive flex; stiff w/ ext Left Flexion Active (degrees) 122 Extension Active (degrees) 0 PT-OP-L Special Tests Start: 11/29/22 09:30 Freq: Status: Active Protocol: Document 12/01/22 09:05 [facility] (Rec: 12/01/22 09:57 [facility] [id number]) Special Tests Lumbar Spine Special Tests Straight Leg Raise Test Results neg; good HS range B Knee Special Tests Johnny Test Results R>L quad and RF tightness Fernandez's Compression Test Results neg R Dumas Chondromalacia Test Results pos R 4 way liagment Test Results neg R Thessaly Test 5 Degrees Test Results neg R Jasvir Test Test Results neg PT-OP-M Strength Start: 11/29/22 09:30 Freq: Status: Active Protocol: Document 12/01/22 09:05 [facility] (Rec: 12/01/22 09:57 [facility] [id number]) Hip Strength Hip Manual Muscle Testing Right Flexion (L2) 4+ Good+ Extension (S1) 4- Good- Abduction 4 Good Adduction 5 Normal External Rotation 4 Good Internal Rotation 4+ Good+ Left Flexion (L2) 4+ Good+ Extension (S1) 4+ Good+ Abduction 5 Normal Adduction 5 Normal External Rotation 4 Good Internal Rotation 4+ Good+ Knee Strength Knee Manual Muscle Testing Right Flexion (S2) 5 Normal Extension (L3) 4- Good- Left Flexion (S2) 5 Normal Extension (L3) 5 Normal Ankle/Foot Strength Ankle and Foot Manual Muscle Testing Right Dorsiflexion (L4) 5 Normal Plantarflexion (S1) 5 Normal Inversion 5 Normal Eversion (S1) 5 Normal Comments 20 heels raises w/pain in ball of foot Left Dorsiflexion (L4) 5 Normal Plantarflexion (S1) 5 Normal Inversion 5 Normal Eversion (S1) 5 Normal Comments 20 heel raises: 5/5 B toe flex /ext PT-OP-Q Treatments Start: 11/29/22 09:30 Freq: Status: Active Protocol: Document 01/06/23 10:03 [facility] (Rec: 01/06/23 13:32 [facility] [id number]) Therapeutic Exercises Standing Exercises bottoms up Side bilateral Reps/Minutes 10 sec x4 Manual Therapy Treatment Soft Tissue Mobilization ITB Body Location R lat Mobilization Type Rolling Comments w/abd knee Body Location med superficial fasicia release w/IR LE Body Location thigh circumfrential Mobilization Type Rolling,Strumming,Sustained Pressure Intensity/Depth Moderate Body Position Hooklying Comments w/ ER add Body Location R Mobilization Type Rolling Intensity/Depth Moderate Comments w/hipER HS Body Location R distal Mobilization Type Rolling Joint Mobilizations innominate Joint abd FM Body Position Supine hip Joint abd (supine) & IR (supine & hooklying)& ER (hooklying) FM Self-Care/Home Management Treatment Education Other Education 3 min: dsicussion for pt to consider sports and spine specialists to look at his back as it is significantly limiting him at this time PT-OP-T Assessment and Plan Start: 11/29/22 09:30 Freq: Status: Active Protocol: Document 01/06/23 10:03 [facility] (Rec: 01/06/23 13:32 [facility] [id number]) Physical Therapy Assessment Goals stairs Short Term Goal (STG) Pt will be able to go up/down stairs reciprocally w/o rail w /o pain STG Duration 01/23/23 Mine Wirer Goal (LTG) Pt will be able to go up/down ladder w/o pain. 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 STG Duration 01/13/23 Prison Goal (LTG) Pt will be able to go on hikes w/o pain greater than 1/10 in R foot or R knee. LTG Duration 02/22/23 strength Short Term Goal (STG) Pt will be indep w/HEP STG Duration 01/13/23 Prison Goal (LTG) Pt will score 5/5 on BLE strength and at least 3/5 on LPM to show improved stability inc pt functional ability. LTG Duration 02/23/23 Assessment Summary Assessment Pt had improved ability to bear wt into RLE after sessionbut still had pain w/ sit to stand and bed mobility. pt was encouraged to consider seeing field talent qualification specialist d/t pain. He had some restriction at med knee w/soft tissue which improved w/manual Physical Therapy Plan Frequency and Duration Frequency of Treatment 2x/wk 3 wk;1x/wk 9 Duration of treatment (weeks) 12 Plan of Care Start Date 12/01/22 Plan of Care End Date 02/23/23 Next Visit Focus/Plan Next Note Type Treatment Note Next Visit Plan review core fcailitation exercises, cont to work on LE aligment to improve gait for knee
--- NOTE | 2023-01-12 10:52 | PT.OTN ---
Current Diagnoses Unilateral primary osteoarthritis, right knee (01/12/23) Low back pain, unspecified (01/12/23) Pain in right foot (01/12/23) Difficulty in walking, not elsewhere classified (01/12/23) Weakness (01/12/23) Physical Therapy Treatment Note PT-OP-A Visit Information Start: 11/29/22 09:30 Freq: Status: Active Protocol: Document 01/12/23 10:05 [facility] (Rec: 01/12/23 10:52 [facility] [id number]) Out-Patient Physical Therapy Visit Information Visit Information Visit Type Treatment Note Visit Note 03/24 Visit Start Time 10:04 Visit Stop Time 10:46 Total Visit Minutes 42 Visit Number 8 Number of TELEPHONIC NURSE Visits 0 PT-OP-B Current Condition Start: 11/29/22 09:30 Freq: Status: Active Protocol: Document 12/01/22 09:05 [facility] (Rec: 12/01/22 09:57 [facility] [id number]) Current Condition History of Current Condition Current Complaints R knee pain & foot pain History of Current Condition Pt reprots he is having r knee pain. He has historyof back and R foot pain. He had insoles made for him but he likes his hokas better. Pt saw ortho and they told him he has arthritis whcih is new since he had xrays 5 years ago . He has medial arthritis. He is going to try PT, cortizone, PRP then stem cells. Pt reports standing hurts more than walking. He took his family to [employer] in october and R knee was pretty bad afte rthat. Pt reprots he is weak. He has not been hiking much d/ t his foot. He has been going to the gym (knee exts(in all 3 planes), HS curls, wall squat w/wt, lunges static, heel raises). Pt reports R foot is giving him trouble on/off and is shoe dependent. it is not as bad as it was lurdes last treated. He is considering the carbon fiber insoles to help. His custom orthotics and stewart often irritate his foot . Pt is having to gut a bathroom and redo to help son and ahs a lot more to do w/ their new house. He can only last 5 hours d/t knee and foot pain. 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 Pt reports a couple nights ago pain was horrible in HS and he had to walk and stretchto dec pain. It hasn't been in the calf as much. PT-OP-D Balance Start: 11/29/22 09:30 Freq: Status: Active Protocol: Document 12/01/22 09:05 [facility] (Rec: 12/01/22 09:57 [facility] [id number]) Balance Tests Single Limb Standing Single Limb- Right 30 sec w/lat lean Single Limb- Left 30 sec w/lat lean PT-OP-F Manual Assessment Start: 11/29/22 09:30 Freq: Status: Active Protocol: Document 12/01/22 09:05 [facility] (Rec: 12/01/22 09:57 [facility] [id number]) Manual Assessments Soft Tissue Assessment Soft Tissue Mobility Assessment R calf, HS, add, ITB, VL tight & tender Joint Mobility Assessment Joint Mobility Assessment IR R femur w/knee bend, ER tibia; talus R does not glide post w/knee bend PT-OP-G Mobility & Gait Start: 11/29/22 09:30 Freq: Status: Active Protocol: Document 12/01/22 09:05 [facility] (Rec: 12/01/22 09:57 [facility] [id number]) OP Gait Assessment Comments Gait Comments SB L; hard landing onto L; dec push off R; rigid upper body PT-OP-J Posture/Palpation/Skin Start: 11/29/22 09:30 Freq: Status: Active Protocol: Document 12/01/22 09:05 [facility] (Rec: 12/01/22 09:57 [facility] [id number]) Posture Evaluation [facility] Postural Classification System Lumbar Protective Mechanism Left AP 0 Lumbar Protective Mechanism Right AP 3 Lumbar Protective Mechanism Left PA 3 Lumbar Protective Mechanism Right PA 1 Comments Posture Comments varus R rear foot; SBL L trunk , R pelvic shear; slightly rotated L; IR B femur; IR R tibia PT-OP-K Range of Motion Start: 11/29/22 09:30 Freq: Status: Active Protocol: Document 12/01/22 09:05 [facility] (Rec: 12/01/22 09:57 [facility] [id number]) Knee Goniometric Range of Motion Knee Right Flexion Active (degrees) 123 Flexion Passive (degrees) 130 Extension Active (degrees) 0 Comments tight w/passive flex; stiff w/ ext Left Flexion Active (degrees) 122 Extension Active (degrees) 0 PT-OP-L Special Tests Start: 11/29/22 09:30 Freq: Status: Active Protocol: Document 12/01/22 09:05 [facility] (Rec: 12/01/22 09:57 [facility] [id number]) Special Tests Lumbar Spine Special Tests Straight Leg Raise Test Results neg; good HS range B Knee Special Tests Johnny Test Results R>L quad and RF tightness Fernandez's Compression Test Results neg R Dumas Chondromalacia Test Results pos R 4 way liagment Test Results neg R Thessaly Test 5 Degrees Test Results neg R Jasvir Test Test Results neg PT-OP-M Strength Start: 11/29/22 09:30 Freq: Status: Active Protocol: Document 12/01/22 09:05 [facility] (Rec: 12/01/22 09:57 [facility] [id number]) Hip Strength Hip Manual Muscle Testing Right Flexion (L2) 4+ Good+ Extension (S1) 4- Good- Abduction 4 Good Adduction 5 Normal External Rotation 4 Good Internal Rotation 4+ Good+ Left Flexion (L2) 4+ Good+ Extension (S1) 4+ Good+ Abduction 5 Normal Adduction 5 Normal External Rotation 4 Good Internal Rotation 4+ Good+ Knee Strength Knee Manual Muscle Testing Right Flexion (S2) 5 Normal Extension (L3) 4- Good- Left Flexion (S2) 5 Normal Extension (L3) 5 Normal Ankle/Foot Strength Ankle and Foot Manual Muscle Testing Right Dorsiflexion (L4) 5 Normal Plantarflexion (S1) 5 Normal Inversion 5 Normal Eversion (S1) 5 Normal Comments 20 heels raises w/pain in ball of foot Left Dorsiflexion (L4) 5 Normal Plantarflexion (S1) 5 Normal Inversion 5 Normal Eversion (S1) 5 Normal Comments 20 heel raises: 5/5 B toe flex /ext PT-OP-Q Treatments Start: 11/29/22 09:30 Freq: Status: Active Protocol: Document 01/12/23 10:05 [facility] (Rec: 01/12/23 10:52 [facility] [id number]) Gym Equipment Therapeutic Ball seated Ball Size/Color 65 cm Reps/Duration 1. pelvic tilts x15 Comments 2. pelvic circles x10 B 3. marches x10 B 4. knee ext x10 B 5. twists comf range x10B 6. paloff press 2 orange bands Therapeutic Exercises Sitting Exercises reversals Sitting Exercise Name manual Side bilateral Reps/Minutes 3 min Comments mirror working o nposture Manual Therapy Treatment Soft Tissue Mobilization HS Body Location R distal Mobilization Type Rolling Joint Mobilizations lumbar Comments L1 upglide L FM and T12 upglide R and L 4upglide R FM sacrum Comments R PA in seated FM innominate Comments R PA FM seated PT-OP-T Assessment and Plan Start: 11/29/22 09:30 Freq: Status: Active Protocol: Document 01/12/23 10:05 [facility] (Rec: 01/12/23 10:52 [facility] [id number]) Physical Therapy Assessment Goals stairs Short Term Goal (STG) Pt will be able to go up/down stairs reciprocally w/o rail w /o pain STG Duration 01/23/23 Shelter Goal (LTG) Pt will be able to go up/down ladder w/o pain. 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 STG Duration 01/13/23 Hollow Handle Knife Assembler Goal (LTG) Pt will be able to go on hikes w/o pain greater than 1/10 in R foot or R knee. LTG Duration 02/22/23 strength Short Term Goal (STG) Pt will be indep w/HEP STG Duration 01/13/23 Hollow Handle Knife Assembler Goal (LTG) Pt will score 5/5 on BLE strength and at least 3/5 on LPM to show improved stability inc pt functional ability. LTG Duration 02/23/23 Assessment Summary Assessment Pt reports feels a little better with activating mm in session and amb out w/better gait after session. Given HEP f core. Tried plank elevated but pt unable to do good form w/o pain Physical Therapy Plan Frequency and Duration Frequency of Treatment 2x/wk 3 wk;1x/wk 9 Duration of treatment (weeks) 12 Plan of Care Start Date 12/01/22 Plan of Care End Date 02/23/23 Next Visit Focus/Plan Next Note Type Treatment Note Next Visit Plan review core fcailitation exercises, cont to work on LE aligment to improve gait for knee
--- NOTE | 2023-01-19 14:18 | PT.OTN ---
Current Diagnoses Unilateral primary osteoarthritis, right knee (01/19/23) Low back pain, unspecified (01/19/23) Pain in right foot (01/19/23) Difficulty in walking, not elsewhere classified (01/19/23) Weakness (01/19/23) Physical Therapy Treatment Note PT-OP-A Visit Information Start: 11/29/22 09:30 Freq: Status: Active Protocol: Document 01/19/23 10:03 [facility] (Rec: 01/19/23 14:18 [facility] [id number]) Out-Patient Physical Therapy Visit Information Visit Information Visit Type Treatment Note Visit Note 04/24 Visit Start Time 10:03 Visit Stop Time 10:46 Total Visit Minutes 43 Visit Number 9 Number of TELEPHONE COLLECTOR Visits 0 PT-OP-B Current Condition Start: 11/29/22 09:30 Freq: Status: Active Protocol: Document 12/01/22 09:05 [facility] (Rec: 12/01/22 09:57 [facility] [id number]) Current Condition History of Current Condition Current Complaints R knee pain & foot pain History of Current Condition Pt reprots he is having r knee pain. He has historyof back and R foot pain. He had insoles made for him but he likes his hokas better. Pt saw ortho and they told him he has arthritis whcih is new since he had xrays 5 years ago . He has medial arthritis. He is going to try PT, cortizone, PRP then stem cells. Pt reports standing hurts more than walking. He took his family to [place] in october and R knee was pretty bad afte rthat. Pt reprots he is weak. He has not been hiking much d/ t his foot. He has been going to the gym (knee exts(in all 3 planes), HS curls, wall squat w/wt, lunges static, heel raises). Pt reports R foot is giving him trouble on/off and is shoe dependent. it is not as bad as it was lurdes last treated. He is considering the carbon fiber insoles to help. His custom orthotics and stewart often irritate his foot . Pt is having to gut a bathroom and redo to help son and ahs a lot more to do w/ their new house. He can only last 5 hours d/t knee and foot pain. 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 (Rec: 01/19/23 14:18 [facility] [id number]) OP-PT Subjective Patient Comments Patient Comments Pt is taking gabepentin 2-3x/ day now. He still can't sleep in bed. His back is bothering him significantly. He got a new mower w/suspension seat etc. Was able to pressure wash for aobu 30 min and did some law mowing. PT-OP-D Balance Start: 11/29/22 09:30 Freq: Status: Active Protocol: Document 12/01/22 09:05 [facility] (Rec: 12/01/22 09:57 [facility] [id number]) Balance Tests Single Limb Standing Single Limb- Right 30 sec w/lat lean Single Limb- Left 30 sec w/lat lean PT-OP-F Manual Assessment Start: 11/29/22 09:30 Freq: Status: Active Protocol: Document 12/01/22 09:05 [facility] (Rec: 12/01/22 09:57 [facility] [id number]) Manual Assessments Soft Tissue Assessment Soft Tissue Mobility Assessment R calf, HS, add, ITB, VL tight & tender Joint Mobility Assessment Joint Mobility Assessment IR R femur w/knee bend, ER tibia; talus R does not glide post w/knee bend PT-OP-G Mobility & Gait Start: 11/29/22 09:30 Freq: Status: Active Protocol: Document 12/01/22 09:05 [facility] (Rec: 12/01/22 09:57 [facility] [id number]) OP Gait Assessment Comments Gait Comments SB L; hard landing onto L; dec push off R; rigid upper body PT-OP-J Posture/Palpation/Skin Start: 11/29/22 09:30 Freq: Status: Active Protocol: Document 12/01/22 09:05 [facility] (Rec: 12/01/22 09:57 [facility] [id number]) Posture Evaluation [facility] Postural Classification System Lumbar Protective Mechanism Left AP 0 Lumbar Protective Mechanism Right AP 3 Lumbar Protective Mechanism Left PA 3 Lumbar Protective Mechanism Right PA 1 Comments Posture Comments varus R rear foot; SBL L trunk , R pelvic shear; slightly rotated L; IR B femur; IR R tibia PT-OP-K Range of Motion Start: 11/29/22 09:30 Freq: Status: Active Protocol: Document 12/01/22 09:05 [facility] (Rec: 12/01/22 09:57 [facility] [id number]) Knee Goniometric Range of Motion Knee Right Flexion Active (degrees) 123 Flexion Passive (degrees) 130 Extension Active (degrees) 0 Comments tight w/passive flex; stiff w/ ext Left Flexion Active (degrees) 122 Extension Active (degrees) 0 PT-OP-L Special Tests Start: 11/29/22 09:30 Freq: Status: Active Protocol: Document 12/01/22 09:05 [facility] (Rec: 12/01/22 09:57 [facility] [id number]) Special Tests Lumbar Spine Special Tests Straight Leg Raise Test Results neg; good HS range B Knee Special Tests Johnny Test Results R>L quad and RF tightness Fernandez's Compression Test Results neg R Dumas Chondromalacia Test Results pos R 4 way liagment Test Results neg R Thessaly Test 5 Degrees Test Results neg R Jasvir Test Test Results neg PT-OP-M Strength Start: 11/29/22 09:30 Freq: Status: Active Protocol: Document 12/01/22 09:05 [facility] (Rec: 12/01/22 09:57 [facility] [id number]) Hip Strength Hip Manual Muscle Testing Right Flexion (L2) 4+ Good+ Extension (S1) 4- Good- Abduction 4 Good Adduction 5 Normal External Rotation 4 Good Internal Rotation 4+ Good+ Left Flexion (L2) 4+ Good+ Extension (S1) 4+ Good+ Abduction 5 Normal Adduction 5 Normal External Rotation 4 Good Internal Rotation 4+ Good+ Knee Strength Knee Manual Muscle Testing Right Flexion (S2) 5 Normal Extension (L3) 4- Good- Left Flexion (S2) 5 Normal Extension (L3) 5 Normal Ankle/Foot Strength Ankle and Foot Manual Muscle Testing Right Dorsiflexion (L4) 5 Normal Plantarflexion (S1) 5 Normal Inversion 5 Normal Eversion (S1) 5 Normal Comments 20 heels raises w/pain in ball of foot Left Dorsiflexion (L4) 5 Normal Plantarflexion (S1) 5 Normal Inversion 5 Normal Eversion (S1) 5 Normal Comments 20 heel raises: 5/5 B toe flex /ext PT-OP-Q Treatments Start: 11/29/22 09:30 Freq: Status: Active Protocol: Document 01/19/23 10:03 [facility] (Rec: 01/19/23 14:18 [facility] [id number]) Manual Therapy Treatment Joint Mobilizations ribs Comments R ribs depression w/SB FM ribs 5-10 lumbar Comments L1-4 L transverse FM innominate Comments L add FM Neuro Re-Education Treatment Other Activities posture Comments 1. seated posture w/rhythmic stabilization 2. stnding posture w/rhythimc stabilization 3. paloff press in neutral spine in standing 4. SLS working on neutral LEs & trunk in standing 5. walking w/exaggerated arm swing to improve pelvic motion . PT-OP-T Assessment and Plan Start: 11/29/22 09:30 Freq: Status: Active Protocol: Document 01/19/23 10:03 [facility] (Rec: 01/19/23 14:18 [facility] [id number]) Physical Therapy Assessment Goals stairs Short Term Goal (STG) Pt will be able to go up/down stairs reciprocally w/o rail w /o pain STG Duration 01/23/23 Longterm Goal (LTG) Pt will be able to go up/down ladder w/o pain. 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 STG Duration 01/13/23 School Lunch Monitor Goal (LTG) Pt will be able to go on hikes w/o pain greater than 1/10 in R foot or R knee. LTG Duration 02/22/23 strength Short Term Goal (STG) Pt will be indep w/HEP STG Duration 01/13/23 School Lunch Monitor Goal (LTG) Pt will score 5/5 on BLE strength and at least 3/5 on LPM to show improved stability inc pt functional ability. LTG Duration 02/23/23 Assessment Summary Assessment Pt had improved ability to sustain neutral posture after manual treatment but does require cues of mirror for feedback Physical Therapy Plan Frequency and Duration Frequency of Treatment 2x/wk 3 wk;1x/wk 9 Duration of treatment (weeks) 12 Plan of Care Start Date 12/01/22 Plan of Care End Date 02/23/23 Next Visit Focus/Plan Next Note Type Treatment Note Next Visit Plan review core fcailitation exercises, cont to work on LE aligment to improve gait for knee
--- NOTE | 2023-01-26 09:17 | PT-OP ANOTE ---
Pt called re: no show but found that pt cancelld that appt via [email or web address] system on tuesday. Error on our end.
--- NOTE | 2023-02-02 10:38 | PT.OTN ---
Current Diagnoses Unilateral primary osteoarthritis, right knee (02/02/23) Low back pain, unspecified (02/02/23) Pain in right foot (02/02/23) Difficulty in walking, not elsewhere classified (02/02/23) Weakness (02/02/23) Physical Therapy Treatment Note PT-OP-A Visit Information Start: 11/29/22 09:30 Freq: Status: Active Protocol: Document 02/02/23 10:05 [facility] (Rec: 02/02/23 10:38 [facility] [id number]) Out-Patient Physical Therapy Visit Information Visit Information Visit Type Treatment Note Visit Start Time 09:06 Visit Stop Time 09:46 Total Visit Minutes 40 Visit Number 10 Number of BUSINESS AFFAIRS MANAGER Visits 0 PT-OP-B Current Condition Start: 11/29/22 09:30 Freq: Status: Active Protocol: Document 12/01/22 09:05 [facility] (Rec: 12/01/22 09:57 [facility] [id number]) Current Condition History of Current Condition Current Complaints R knee pain & foot pain History of Current Condition Pt reprots he is having r knee pain. He has historyof back and R foot pain. He had insoles made for him but he likes his hokas better. Pt saw ortho and they told him he has arthritis whcih is new since he had xrays 5 years ago . He has medial arthritis. He is going to try PT, cortizone, PRP then stem cells. Pt reports standing hurts more than walking. He took his family to [place] in october and R knee was pretty bad afte rthat. Pt reprots he is weak. He has not been hiking much d/ t his foot. He has been going to the gym (knee exts(in all 3 planes), HS curls, wall squat w/wt, lunges static, heel raises). Pt reports R foot is giving him trouble on/off and is shoe dependent. it is not as bad as it was lurdes last treated. He is considering the carbon fiber insoles to help. His custom orthotics and stewart often irritate his foot . Pt is having to gut a bathroom and redo to help son and ahs a lot more to do w/ their new house. He can only last 5 hours d/t knee and foot pain. 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 Doing better overall but still trouble sleeping in bed. He gets an injection when he returns from his trip PT-OP-D Balance Start: 11/29/22 09:30 Freq: Status: Active Protocol: Document 12/01/22 09:05 [facility] (Rec: 12/01/22 09:57 [facility] [id number]) Balance Tests Single Limb Standing Single Limb- Right 30 sec w/lat lean Single Limb- Left 30 sec w/lat lean PT-OP-F Manual Assessment Start: 11/29/22 09:30 Freq: Status: Active Protocol: Document 12/01/22 09:05 [facility] (Rec: 12/01/22 09:57 [facility] [id number]) Manual Assessments Soft Tissue Assessment Soft Tissue Mobility Assessment R calf, HS, add, ITB, VL tight & tender Joint Mobility Assessment Joint Mobility Assessment IR R femur w/knee bend, ER tibia; talus R does not glide post w/knee bend PT-OP-G Mobility & Gait Start: 11/29/22 09:30 Freq: Status: Active Protocol: Document 12/01/22 09:05 [facility] (Rec: 12/01/22 09:57 [facility] [id number]) OP Gait Assessment Comments Gait Comments SB L; hard landing onto L; dec push off R; rigid upper body PT-OP-J Posture/Palpation/Skin Start: 11/29/22 09:30 Freq: Status: Active Protocol: Document 12/01/22 09:05 [facility] (Rec: 12/01/22 09:57 [facility] [id number]) Posture Evaluation [facility] Postural Classification System Lumbar Protective Mechanism Left AP 0 Lumbar Protective Mechanism Right AP 3 Lumbar Protective Mechanism Left PA 3 Lumbar Protective Mechanism Right PA 1 Comments Posture Comments varus R rear foot; SBL L trunk , R pelvic shear; slightly rotated L; IR B femur; IR R tibia PT-OP-K Range of Motion Start: 11/29/22 09:30 Freq: Status: Active Protocol: Document 12/01/22 09:05 [facility] (Rec: 12/01/22 09:57 [facility] [id number]) Knee Goniometric Range of Motion Knee Right Flexion Active (degrees) 123 Flexion Passive (degrees) 130 Extension Active (degrees) 0 Comments tight w/passive flex; stiff w/ ext Left Flexion Active (degrees) 122 Extension Active (degrees) 0 PT-OP-L Special Tests Start: 11/29/22 09:30 Freq: Status: Active Protocol: Document 12/01/22 09:05 [facility] (Rec: 12/01/22 09:57 [facility] [id number]) Special Tests Lumbar Spine Special Tests Straight Leg Raise Test Results neg; good HS range B Knee Special Tests Johnny Test Results R>L quad and RF tightness Fernandez's Compression Test Results neg R Dumas Chondromalacia Test Results pos R 4 way liagment Test Results neg R Thessaly Test 5 Degrees Test Results neg R Jasvir Test Test Results neg PT-OP-M Strength Start: 11/29/22 09:30 Freq: Status: Active Protocol: Document 12/01/22 09:05 [facility] (Rec: 12/01/22 09:57 [facility] [id number]) Hip Strength Hip Manual Muscle Testing Right Flexion (L2) 4+ Good+ Extension (S1) 4- Good- Abduction 4 Good Adduction 5 Normal External Rotation 4 Good Internal Rotation 4+ Good+ Left Flexion (L2) 4+ Good+ Extension (S1) 4+ Good+ Abduction 5 Normal Adduction 5 Normal External Rotation 4 Good Internal Rotation 4+ Good+ Knee Strength Knee Manual Muscle Testing Right Flexion (S2) 5 Normal Extension (L3) 4- Good- Left Flexion (S2) 5 Normal Extension (L3) 5 Normal Ankle/Foot Strength Ankle and Foot Manual Muscle Testing Right Dorsiflexion (L4) 5 Normal Plantarflexion (S1) 5 Normal Inversion 5 Normal Eversion (S1) 5 Normal Comments 20 heels raises w/pain in ball of foot Left Dorsiflexion (L4) 5 Normal Plantarflexion (S1) 5 Normal Inversion 5 Normal Eversion (S1) 5 Normal Comments 20 heel raises: 5/5 B toe flex /ext PT-OP-Q Treatments Start: 11/29/22 09:30 Freq: Status: Active Protocol: Document 02/02/23 10:05 [facility] (Rec: 02/02/23 10:38 [facility] [id number]) Therapeutic Exercises Sitting Exercises SL press Side bilateral Reps/Minutes 30 sec Comments DF w/heel on ground Standing Exercises sidestep Side bilateral Equipment Used no band, peach band Reps/Minutes 20ft ea stretch Standing Exercise Name ext w/distraction at sink Side bilateral bottoms up Side bilateral Reps/Minutes 4 Therapeutic Activity Therapeutic Activity posture Reps/Minutes 5 min Comments standing in mirror working on position sleep position Reps/Minutes 5 min Comments supine and s/l sleep position education & positioning Manual Therapy Treatment Joint Mobilizations innominate Comments R caudal FM supine & IR/ER FM supine hip Comments R ER in hooklying FM PT-OP-T Assessment and Plan Start: 11/29/22 09:30 Freq: Status: Active Protocol: Document 02/02/23 10:05 [facility] (Rec: 02/02/23 10:38 [facility] [id number]) Physical Therapy Assessment Goals stairs Short Term Goal (STG) Pt will be able to go up/down stairs reciprocally w/o rail w /o pain 02/02-LBP STG Duration 02/16 Halfway Goal (LTG) Pt will be able to go up/down ladder w/o pain. 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 02/02-avoiding d/t back pain STG Duration 02/26 Shoe Salesperson Goal (LTG) Pt will be able to go on hikes w/o pain greater than 1/10 in R foot or R knee. 02/02-avoiding d/t back pain LTG Duration 04/06 strength Short Term Goal (STG) Pt will be indep w/HEP STG Duration achieved-advancing as able Shoe Salesperson Goal (LTG) Pt will score 5/5 on BLE strength and at least 3/5 on LPM to show improved stability inc pt functional ability. 02/02-n/t LTG Duration 04/13 Assessment Summary Assessment Pt has been limited w/knee progress d/t inc back pain with radicular pain to knee. He had a MRI that showed n impingement of L3 which may be contributing to knee pain. Pt has made limited progress d/t this injury but would benefti from cont PT to work on cont to dec pain. He has better alignment since starting PT but does still require cueing. Cont PT for LE and core strength in order to return pt back to active lifestyle Physical Therapy Plan Frequency and Duration Frequency of Treatment 1x/wk Duration of treatment (weeks) 10 Plan of Care Start Date 02/02/23 Plan of Care End Date 04/13/23 Therapeutic Interventions Therapeutic Interventions Balance Training,Gait Training ,Home Exercise Program,Joint Mobilizations,Manual Therapy, Neuromuscular Re-education, Orthotic/Prosthetic Management ,Patient/Caregiver Education, Self-Care/Home Management,Soft Tissue Mobilization,Taping, Therapeutic Activities, Therapeutic Exercises Modalities Cold Pack/Ice Massage,Electric Stimulation,Hot Packs, Infrared Therapy,Iontophoresis ,Ultrasound Next Visit Focus/Plan Next Note Type Treatment Note Next Visit Plan review core fcailitation exercises, cont to work on LE aligment to improve gait for knee
--- NOTE | 2023-02-02 10:38 | PT.OPPOC ---
Physical, Occupational & Speech Therapy At [facility] Current Diagnoses Unilateral primary osteoarthritis, right knee (02/02/23) Low back pain, unspecified (02/02/23) Pain in right foot (02/02/23) Difficulty in walking, not elsewhere classified (02/02/23) Weakness (02/02/23) Visit Care Team Role Provider Type Cecy Dye ND Family Provider Non-Staff Primary Care Provider Specialty: Naturopathy Address: [address] [place] [address], [facility] Email: Lance Last MD Attending Provider Non-Staff Referring Provider Specialty: Medical Address: [address] [place] [address], [id number] Email: Plan Of Care PT-OP-T Assessment and Plan Start: 11/29/22 09:30 Freq: Status: Active Protocol: Document 02/02/23 10:05 [facility] (Rec: 02/02/23 10:38 [facility] [id number]) Physical Therapy Assessment Goals stairs Short Term Goal (STG) Pt will be able to go up/down stairs reciprocally w/o rail w /o pain 02/02-LBP STG Duration 02/16 Spinner Continuous Goal (LTG) Pt will be able to go up/down ladder w/o pain. 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 02/02-avoiding d/t back pain STG Duration 02/26 Shelter Goal (LTG) Pt will be able to go on hikes w/o pain greater than 1/10 in R foot or R knee. 02/02-avoiding d/t back pain LTG Duration 04/06 strength Short Term Goal (STG) Pt will be indep w/HEP STG Duration achieved-advancing as able Spinner Continuous Goal (LTG) Pt will score 5/5 on BLE strength and at least 3/5 on LPM to show improved stability inc pt functional ability. 02/02-n/t LTG Duration 04/13 Assessment Summary Assessment Pt has been limited w/knee progress d/t inc back pain with radicular pain to knee. He had a MRI that showed n impingement of L3 which may be contributing to knee pain. Pt has made limited progress d/t this injury but would benefti from cont PT to work on cont to dec pain. He has better alignment since starting PT but does still require cueing. Cont PT for LE and core strength in order to return pt back to active lifestyle Physical Therapy Plan Frequency and Duration Frequency of Treatment 1x/wk Duration of treatment (weeks) 10 Plan of Care Start Date 02/02/23 Plan of Care End Date 04/13/23 Therapeutic Interventions Therapeutic Interventions Balance Training,Gait Training ,Home Exercise Program,Joint Mobilizations,Manual Therapy, Neuromuscular Re-education, Orthotic/Prosthetic Management ,Patient/Caregiver Education, Self-Care/Home Management,Soft Tissue Mobilization,Taping, Therapeutic Activities, Therapeutic Exercises Modalities Cold Pack/Ice Massage,Electric Stimulation,Hot Packs, Infrared Therapy,Iontophoresis ,Ultrasound Next Visit Focus/Plan Next Note Type Treatment Note Next Visit Plan review core fcailitation exercises, cont to work on LE aligment to improve gait for knee Plan of Care Dates Plan of Care Start Date 02/02/23 Plan of Care End Date 04/13/23 Electronically Signed by: Amy Alanis, PT 02/02/23 1038 If you are in agreement with this Plan of Care, please return a signed and dated copy. I have reviewed this Plan of Care and certify that the skilled therapy services above are required to meet the patient?s needs. Physician Signature Date Printed Name and Credentials Clinical Instructor Signature Printed Name and Credentials
--- NOTE | 2023-02-22 10:36 | PT.OTN ---
Current Diagnoses Unilateral primary osteoarthritis, right knee (02/22/23) Low back pain, unspecified (02/22/23) Pain in right foot (02/22/23) Difficulty in walking, not elsewhere classified (02/22/23) Weakness (02/22/23) Physical Therapy Treatment Note PT-OP-A Visit Information Start: 11/29/22 09:30 Freq: Status: Active Protocol: Document 02/22/23 07:31 [facility] (Rec: 02/22/23 10:36 [facility] [id number]) Out-Patient Physical Therapy Visit Information Visit Information Visit Type Treatment Note Visit Note 08/24 Visit Start Time 07:32 Visit Stop Time 08:14 Total Visit Minutes 42 Visit Number 11 Number of COMPUTER OPERATIONS SPECIALIST Visits 0 PT-OP-B Current Condition Start: 11/29/22 09:30 Freq: Status: Active Protocol: Document 12/01/22 09:05 [facility] (Rec: 12/01/22 09:57 [facility] [id number]) Current Condition History of Current Condition Current Complaints R knee pain & foot pain History of Current Condition Pt reprots he is having r knee pain. He has historyof back and R foot pain. He had insoles made for him but he likes his hokas better. Pt saw ortho and they told him he has arthritis whcih is new since he had xrays 5 years ago . He has medial arthritis. He is going to try PT, cortizone, PRP then stem cells. Pt reports standing hurts more than walking. He took his family to [place] in october and R knee was pretty bad afte rthat. Pt reprots he is weak. He has not been hiking much d/ t his foot. He has been going to the gym (knee exts(in all 3 planes), HS curls, wall squat w/wt, lunges static, heel raises). Pt reports R foot is giving him trouble on/off and is shoe dependent. it is not as bad as it was lurdes last treated. He is considering the carbon fiber insoles to help. His custom orthotics and stewart often irritate his foot . Pt is having to gut a bathroom and redo to help son and ahs a lot more to do w/ their new house. He can only last 5 hours d/t knee and foot pain. 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 He was playing in the pool w/dgt and thinks he tweaked a m. Pt now has tignling down back of leg to bottom of foot since before the injection around time of his trip. It is pretty constant. Pt was carrying food when on vacation and stepped into hole and that inc pain significantly. PT-OP-D Balance Start: 11/29/22 09:30 Freq: Status: Active Protocol: Document 12/01/22 09:05 [facility] (Rec: 12/01/22 09:57 [facility] [id number]) Balance Tests Single Limb Standing Single Limb- Right 30 sec w/lat lean Single Limb- Left 30 sec w/lat lean PT-OP-F Manual Assessment Start: 11/29/22 09:30 Freq: Status: Active Protocol: Document 12/01/22 09:05 [facility] (Rec: 12/01/22 09:57 [facility] [id number]) Manual Assessments Soft Tissue Assessment Soft Tissue Mobility Assessment R calf, HS, add, ITB, VL tight & tender Joint Mobility Assessment Joint Mobility Assessment IR R femur w/knee bend, ER tibia; talus R does not glide post w/knee bend PT-OP-G Mobility & Gait Start: 11/29/22 09:30 Freq: Status: Active Protocol: Document 12/01/22 09:05 [facility] (Rec: 12/01/22 09:57 [facility] [id number]) OP Gait Assessment Comments Gait Comments SB L; hard landing onto L; dec push off R; rigid upper body PT-OP-J Posture/Palpation/Skin Start: 11/29/22 09:30 Freq: Status: Active Protocol: Document 12/01/22 09:05 [facility] (Rec: 12/01/22 09:57 [facility] [id number]) Posture Evaluation Kary Postural Classification System Lumbar Protective Mechanism Left AP 0 Lumbar Protective Mechanism Right AP 3 Lumbar Protective Mechanism Left PA 3 Lumbar Protective Mechanism Right PA 1 Comments Posture Comments varus R rear foot; SBL L trunk , R pelvic shear; slightly rotated L; IR B femur; IR R tibia PT-OP-K Range of Motion Start: 11/29/22 09:30 Freq: Status: Active Protocol: Document 12/01/22 09:05 [facility] (Rec: 12/01/22 09:57 [facility] [id number]) Knee Goniometric Range of Motion Knee Right Flexion Active (degrees) 123 Flexion Passive (degrees) 130 Extension Active (degrees) 0 Comments tight w/passive flex; stiff w/ ext Left Flexion Active (degrees) 122 Extension Active (degrees) 0 PT-OP-L Special Tests Start: 11/29/22 09:30 Freq: Status: Active Protocol: Document 12/01/22 09:05 [facility] (Rec: 12/01/22 09:57 [facility] [id number]) Special Tests Lumbar Spine Special Tests Straight Leg Raise Test Results neg; good HS range B Knee Special Tests Johnny Test Results R>L quad and RF tightness Fernandez's Compression Test Results neg R Dumas Chondromalacia Test Results pos R 4 way liagment Test Results neg R Thessaly Test 5 Degrees Test Results neg R Jasvir Test Test Results neg PT-OP-M Strength Start: 11/29/22 09:30 Freq: Status: Active Protocol: Document 12/01/22 09:05 [facility] (Rec: 12/01/22 09:57 [facility] [id number]) Hip Strength Hip Manual Muscle Testing Right Flexion (L2) 4+ Good+ Extension (S1) 4- Good- Abduction 4 Good Adduction 5 Normal External Rotation 4 Good Internal Rotation 4+ Good+ Left Flexion (L2) 4+ Good+ Extension (S1) 4+ Good+ Abduction 5 Normal Adduction 5 Normal External Rotation 4 Good Internal Rotation 4+ Good+ Knee Strength Knee Manual Muscle Testing Right Flexion (S2) 5 Normal Extension (L3) 4- Good- Left Flexion (S2) 5 Normal Extension (L3) 5 Normal Ankle/Foot Strength Ankle and Foot Manual Muscle Testing Right Dorsiflexion (L4) 5 Normal Plantarflexion (S1) 5 Normal Inversion 5 Normal Eversion (S1) 5 Normal Comments 20 heels raises w/pain in ball of foot Left Dorsiflexion (L4) 5 Normal Plantarflexion (S1) 5 Normal Inversion 5 Normal Eversion (S1) 5 Normal Comments 20 heel raises: 5/5 B toe flex /ext PT-OP-Q Treatments Start: 11/29/22 09:30 Freq: Status: Active Protocol: Document 02/22/23 07:31 [facility] (Rec: 02/22/23 10:36 [facility] [id number]) Therapeutic Exercises Sitting Exercises SL press Sitting Exercise Name cues for posture and set up Side bilateral Reps/Minutes 30 sec Comments DF w/heel on ground Standing Exercises wt shifts Side bilateral Reps/Minutes 6 Comments in miror focus on no lat shear Manual Therapy Treatment Soft Tissue Mobilization lumbar Comments R QL FM w/ant dep Joint Mobilizations lumbar Comments T12 to L3 L transverse FM w/ pelvic pattern Neuro Re-Education Treatment Other Activities PNF Reps/Duration 8 min Comments 1. ant elevation R pelvis from irradiation from R LE-mult reps progressed to sustained holds 2. COI w/dissociation of LE from pelvis then pelvis from LE 3. mass flex w/irrdation from scap ant dep R to R ant elevation pelvis to sustained hold to COI PT-OP-T Assessment and Plan Start: 11/29/22 09:30 Freq: Status: Active Protocol: Document 02/22/23 07:31 [facility] (Rec: 02/22/23 10:36 [facility] [id number]) Physical Therapy Assessment Goals stairs Short Term Goal (STG) Pt will be able to go up/down stairs reciprocally w/o rail w /o pain 02/02-LBP STG Duration 7 Oil Distributor Goal (LTG) Pt will be able to go up/down ladder w/o pain. 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 02/02-avoiding d/t back pain STG Duration 02/26 Custodial Goal (LTG) Pt will be able to go on hikes w/o pain greater than 1/10 in R foot or R knee. 02/02-avoiding d/t back pain LTG Duration 04/06 strength Short Term Goal (STG) Pt will be indep w/HEP STG Duration achieved-advancing as able Oil Distributor Goal (LTG) Pt will score 5/5 on BLE strength and at least 3/5 on LPM to show improved stability inc pt functional ability. 02/02-n/t LTG Duration 04/13 Assessment Summary Assessment Pt presented w/better overall posture but was most limtied on R SB through lumbar and thoracic mobility and had minor improvement w/manual. Pt did have pain w/wt shifts and standign in staggered stance prior to manual which improved after and pt able to do this and was givenf or HEP to work on walking posture Physical Therapy Plan Frequency and Duration Frequency of Treatment 1x/wk Duration of treatment (weeks) 10 Plan of Care Start Date 02/02/23 Plan of Care End Date 04/13/23 Next Visit Focus/Plan Next Note Type Treatment Note Next Visit Plan review core fcailitation exercises, cont to work on LE aligment to improve gait for knee
--- NOTE | 2023-03-10 17:55 | PT.OTN ---
Current Diagnoses Unilateral primary osteoarthritis, right knee (03/10/23) Low back pain, unspecified (03/10/23) Pain in right foot (03/10/23) Difficulty in walking, not elsewhere classified (03/10/23) Weakness (03/10/23) Physical Therapy Treatment Note PT-OP-A Visit Information Start: 11/29/22 09:30 Freq: Status: Active Protocol: Document 03/10/23 16:40 [facility] (Rec: 03/10/23 17:55 [facility] [id number]) Out-Patient Physical Therapy Visit Information Visit Information Visit Type Treatment Note Visit Note 09/24 Visit Start Time 16:53 Visit Stop Time 17:33 Total Visit Minutes 40 Visit Number 12 Number of SENIOR PROJECT ACCOUNTANT Visits 0 PT-OP-B Current Condition Start: 11/29/22 09:30 Freq: Status: Active Protocol: Document 12/01/22 09:05 [facility] (Rec: 12/01/22 09:57 [facility] [id number]) Current Condition History of Current Condition Current Complaints R knee pain & foot pain History of Current Condition Pt reprots he is having r knee pain. He has historyof back and R foot pain. He had insoles made for him but he likes his hokas better. Pt saw ortho and they told him he has arthritis whcih is new since he had xrays 5 years ago . He has medial arthritis. He is going to try PT, cortizone, PRP then stem cells. Pt reports standing hurts more than walking. He took his family to [place] in october and R knee was pretty bad afte rthat. Pt reprots he is weak. He has not been hiking much d/ t his foot. He has been going to the gym (knee exts(in all 3 planes), HS curls, wall squat w/wt, lunges static, heel raises). Pt reports R foot is giving him trouble on/off and is shoe dependent. it is not as bad as it was lurdes last treated. He is considering the carbon fiber insoles to help. His custom orthotics and stewart often irritate his foot . Pt is having to gut a bathroom and redo to help son and ahs a lot more to do w/ their new house. He can only last 5 hours d/t knee and foot pain. 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 He did do a little hike and that was fien. He had a few days walking over 10k steps. he did a couple 6 mile mountain bikes w/grandkids. Rolling in bed still irritates the back. Pt now has tingling in post thigh and lower leg to heel and med ankle. Transitioned from pain to tingling after shot. was doing well with core exercises but while on trip, has done less. Has been noticing ant knee with walking PT-OP-D Balance Start: 11/29/22 09:30 Freq: Status: Active Protocol: Document 12/01/22 09:05 [facility] (Rec: 12/01/22 09:57 [facility] [id number]) Balance Tests Single Limb Standing Single Limb- Right 30 sec w/lat lean Single Limb- Left 30 sec w/lat lean PT-OP-F Manual Assessment Start: 11/29/22 09:30 Freq: Status: Active Protocol: Document 12/01/22 09:05 [facility] (Rec: 12/01/22 09:57 [facility] [id number]) Manual Assessments Soft Tissue Assessment Soft Tissue Mobility Assessment R calf, HS, add, ITB, VL tight & tender Joint Mobility Assessment Joint Mobility Assessment IR R femur w/knee bend, ER tibia; talus R does not glide post w/knee bend PT-OP-G Mobility & Gait Start: 11/29/22 09:30 Freq: Status: Active Protocol: Document 12/01/22 09:05 [facility] (Rec: 12/01/22 09:57 [facility] [id number]) OP Gait Assessment Comments Gait Comments SB L; hard landing onto L; dec push off R; rigid upper body PT-OP-J Posture/Palpation/Skin Start: 11/29/22 09:30 Freq: Status: Active Protocol: Document 12/01/22 09:05 [facility] (Rec: 12/01/22 09:57 [facility] [id number]) Posture Evaluation [facility] Postural Classification System Lumbar Protective Mechanism Left AP 0 Lumbar Protective Mechanism Right AP 3 Lumbar Protective Mechanism Left PA 3 Lumbar Protective Mechanism Right PA 1 Comments Posture Comments varus R rear foot; SBL L trunk , R pelvic shear; slightly rotated L; IR B femur; IR R tibia PT-OP-K Range of Motion Start: 11/29/22 09:30 Freq: Status: Active Protocol: Document 12/01/22 09:05 [facility] (Rec: 12/01/22 09:57 [facility] [id number]) Knee Goniometric Range of Motion Knee Right Flexion Active (degrees) 123 Flexion Passive (degrees) 130 Extension Active (degrees) 0 Comments tight w/passive flex; stiff w/ ext Left Flexion Active (degrees) 122 Extension Active (degrees) 0 PT-OP-L Special Tests Start: 11/29/22 09:30 Freq: Status: Active Protocol: Document 12/01/22 09:05 [facility] (Rec: 12/01/22 09:57 [facility] [id number]) Special Tests Lumbar Spine Special Tests Straight Leg Raise Test Results neg; good HS range B Knee Special Tests Johnny Test Results R>L quad and RF tightness Fernandez's Compression Test Results neg R Dumas Chondromalacia Test Results pos R 4 way liagment Test Results neg R Thessaly Test 5 Degrees Test Results neg R Jasvir Test Test Results neg PT-OP-M Strength Start: 11/29/22 09:30 Freq: Status: Active Protocol: Document 12/01/22 09:05 [facility] (Rec: 12/01/22 09:57 [facility] [id number]) Hip Strength Hip Manual Muscle Testing Right Flexion (L2) 4+ Good+ Extension (S1) 4- Good- Abduction 4 Good Adduction 5 Normal External Rotation 4 Good Internal Rotation 4+ Good+ Left Flexion (L2) 4+ Good+ Extension (S1) 4+ Good+ Abduction 5 Normal Adduction 5 Normal External Rotation 4 Good Internal Rotation 4+ Good+ Knee Strength Knee Manual Muscle Testing Right Flexion (S2) 5 Normal Extension (L3) 4- Good- Left Flexion (S2) 5 Normal Extension (L3) 5 Normal Ankle/Foot Strength Ankle and Foot Manual Muscle Testing Right Dorsiflexion (L4) 5 Normal Plantarflexion (S1) 5 Normal Inversion 5 Normal Eversion (S1) 5 Normal Comments 20 heels raises w/pain in ball of foot Left Dorsiflexion (L4) 5 Normal Plantarflexion (S1) 5 Normal Inversion 5 Normal Eversion (S1) 5 Normal Comments 20 heel raises: 5/5 B toe flex /ext PT-OP-Q Treatments Start: 11/29/22 09:30 Freq: Status: Active Protocol: Document 03/10/23 16:40 [facility] (Rec: 03/10/23 17:55 [facility] [id number]) Therapeutic Exercises Standing Exercises SL Standing Exercise Name focus on wt accpetance w/bar prn Side bilateral Reps/Minutes 30 sec x2 ea lunges Side bilateral Reps/Minutes 10 Comments cues alignment squats Side bilateral Reps/Minutes 10 Comments over chair cues not to sit down Manual Therapy Treatment Soft Tissue Mobilization quad Body Location R Mobilization Type Rolling lumbar Comments R QL & ES FM w/post dep glute Body Location R Mobilization Type Sustained Pressure Comments w/hip IR/ER Joint Mobilizations lumbar Comments gapping L1-2 FM sacrum Joint R UPA FM innominate Comments R PA innominate FM in prone w/ hip ext PT-OP-T Assessment and Plan Start: 11/29/22 09:30 Freq: Status: Active Protocol: Document 03/10/23 16:40 [facility] (Rec: 03/10/23 17:55 [facility] [id number]) Physical Therapy Assessment Goals stairs Short Term Goal (STG) Pt will be able to go up/down stairs reciprocally w/o rail w /o pain 02/02-LBP STG Duration 7 Customer Success Specialist Goal (LTG) Pt will be able to go up/down ladder w/o pain. 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 02/02-avoiding d/t back pain STG Duration 02/26 Snf Goal (LTG) Pt will be able to go on hikes w/o pain greater than 1/10 in R foot or R knee. 02/02-avoiding d/t back pain LTG Duration 04/06 strength Short Term Goal (STG) Pt will be indep w/HEP STG Duration achieved-advancing as able Snf Goal (LTG) Pt will score 5/5 on BLE strength and at least 3/5 on LPM to show improved stability inc pt functional ability. 02/02-n/t LTG Duration 04/13 Assessment Summary Assessment pt cont to improve w/posture and when thinking about it can improve gait which improved further after manual. Initiallly had pain in prone espeically w/TKE on R but that improved after manual. Physical Therapy Plan Frequency and Duration Frequency of Treatment 1x/wk Duration of treatment (weeks) 10 Plan of Care Start Date 02/02/23 Plan of Care End Date 04/13/23 Next Visit Focus/Plan Next Note Type Treatment Note Next Visit Plan review exercises, cont to wrok on RLE wt acceptance and gait mechanics
--- NOTE | 2023-03-30 12:21 | PT.OTN ---
Current Diagnoses Unilateral primary osteoarthritis, right knee (03/30/23) Low back pain, unspecified (03/30/23) Pain in right foot (03/30/23) Difficulty in walking, not elsewhere classified (03/30/23) Weakness (03/30/23) Physical Therapy Treatment Note PT-OP-A Visit Information Start: 11/29/22 09:30 Freq: Status: Active Protocol: Document 03/30/23 10:49 [facility] (Rec: 03/30/23 12:21 [facility] [id number]) Out-Patient Physical Therapy Visit Information Visit Information Visit Type Treatment Note Visit Note 10/22 Visit Start Time 10:50 Visit Stop Time 11:32 Total Visit Minutes 42 Visit Number 13 Number of FIRST AID NURSE Visits 0 PT-OP-B Current Condition Start: 11/29/22 09:30 Freq: Status: Active Protocol: Document 12/01/22 09:05 [facility] (Rec: 12/01/22 09:57 [facility] [id number]) Current Condition History of Current Condition Current Complaints R knee pain & foot pain History of Current Condition Pt reprots he is having r knee pain. He has historyof back and R foot pain. He had insoles made for him but he likes his hokas better. Pt saw ortho and they told him he has arthritis whcih is new since he had xrays 5 years ago . He has medial arthritis. He is going to try PT, cortizone, PRP then stem cells. Pt reports standing hurts more than walking. He took his family to [place] in october and R knee was pretty bad afte rthat. Pt reprots he is weak. He has not been hiking much d/ t his foot. He has been going to the gym (knee exts(in all 3 planes), HS curls, wall squat w/wt, lunges static, heel raises). Pt reports R foot is giving him trouble on/off and is shoe dependent. it is not as bad as it was lurdes last treated. He is considering the carbon fiber insoles to help. His custom orthotics and stewart often irritate his foot . Pt is having to gut a bathroom and redo to help son and ahs a lot more to do w/ their new house. He can only last 5 hours d/t knee and foot pain. 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 He did the exercises for the few days. The last few days have been better. bike rides feel great. Pt has not gone on any planned walks. He has been trying to work on not leaning too much in his back. That can get the glute area on R irritated PT-OP-D Balance Start: 11/29/22 09:30 Freq: Status: Active Protocol: Document 12/01/22 09:05 [facility] (Rec: 12/01/22 09:57 [facility] [id number]) Balance Tests Single Limb Standing Single Limb- Right 30 sec w/lat lean Single Limb- Left 30 sec w/lat lean PT-OP-F Manual Assessment Start: 11/29/22 09:30 Freq: Status: Active Protocol: Document 12/01/22 09:05 [facility] (Rec: 12/01/22 09:57 [facility] [id number]) Manual Assessments Soft Tissue Assessment Soft Tissue Mobility Assessment R calf, HS, add, ITB, VL tight & tender Joint Mobility Assessment Joint Mobility Assessment IR R femur w/knee bend, ER tibia; talus R does not glide post w/knee bend PT-OP-G Mobility & Gait Start: 11/29/22 09:30 Freq: Status: Active Protocol: Document 12/01/22 09:05 [facility] (Rec: 12/01/22 09:57 [facility] [id number]) OP Gait Assessment Comments Gait Comments SB L; hard landing onto L; dec push off R; rigid upper body PT-OP-J Posture/Palpation/Skin Start: 11/29/22 09:30 Freq: Status: Active Protocol: Document 12/01/22 09:05 [facility] (Rec: 12/01/22 09:57 [facility] [id number]) Posture Evaluation Kary Postural Classification System Lumbar Protective Mechanism Left AP 0 Lumbar Protective Mechanism Right AP 3 Lumbar Protective Mechanism Left PA 3 Lumbar Protective Mechanism Right PA 1 Comments Posture Comments varus R rear foot; SBL L trunk , R pelvic shear; slightly rotated L; IR B femur; IR R tibia PT-OP-K Range of Motion Start: 11/29/22 09:30 Freq: Status: Active Protocol: Document 12/01/22 09:05 [facility] (Rec: 12/01/22 09:57 [facility] [id number]) Knee Goniometric Range of Motion Knee Right Flexion Active (degrees) 123 Flexion Passive (degrees) 130 Extension Active (degrees) 0 Comments tight w/passive flex; stiff w/ ext Left Flexion Active (degrees) 122 Extension Active (degrees) 0 PT-OP-L Special Tests Start: 11/29/22 09:30 Freq: Status: Active Protocol: Document 12/01/22 09:05 [facility] (Rec: 12/01/22 09:57 [facility] [id number]) Special Tests Lumbar Spine Special Tests Straight Leg Raise Test Results neg; good HS range B Knee Special Tests Johnny Test Results R>L quad and RF tightness Fernandez's Compression Test Results neg R Dumas Chondromalacia Test Results pos R 4 way liagment Test Results neg R Thessaly Test 5 Degrees Test Results neg R Jasvir Test Test Results neg PT-OP-M Strength Start: 11/29/22 09:30 Freq: Status: Active Protocol: Document 12/01/22 09:05 [facility] (Rec: 12/01/22 09:57 [facility] [id number]) Hip Strength Hip Manual Muscle Testing Right Flexion (L2) 4+ Good+ Extension (S1) 4- Good- Abduction 4 Good Adduction 5 Normal External Rotation 4 Good Internal Rotation 4+ Good+ Left Flexion (L2) 4+ Good+ Extension (S1) 4+ Good+ Abduction 5 Normal Adduction 5 Normal External Rotation 4 Good Internal Rotation 4+ Good+ Knee Strength Knee Manual Muscle Testing Right Flexion (S2) 5 Normal Extension (L3) 4- Good- Left Flexion (S2) 5 Normal Extension (L3) 5 Normal Ankle/Foot Strength Ankle and Foot Manual Muscle Testing Right Dorsiflexion (L4) 5 Normal Plantarflexion (S1) 5 Normal Inversion 5 Normal Eversion (S1) 5 Normal Comments 20 heels raises w/pain in ball of foot Left Dorsiflexion (L4) 5 Normal Plantarflexion (S1) 5 Normal Inversion 5 Normal Eversion (S1) 5 Normal Comments 20 heel raises: 5/5 B toe flex /ext PT-OP-Q Treatments Start: 11/29/22 09:30 Freq: Status: Active Protocol: Document 03/30/23 10:49 [facility] (Rec: 03/30/23 12:21 [facility] [id number]) Manual Therapy Treatment Soft Tissue Mobilization HS Body Location R proximal med heads Mobilization Type Rolling Comments w/active HS stretch glute Comments R piriformis at ant orgin and post in supine w/hip IR/ER FM hip flexor Comments R psoas orgin and attatchment w/heel slide and 90/90 hip/ knee psoition FM Joint Mobilizations innominate Comments supine ER R innominate and flex FM hip Comments R inf and on axis IRsupine and free the ball IR hooklying FM PT-OP-T Assessment and Plan Start: 11/29/22 09:30 Freq: Status: Active Protocol: Document 03/30/23 10:49 [facility] (Rec: 03/30/23 12:21 [facility] [id number]) Physical Therapy Assessment Goals stairs Short Term Goal (STG) Pt will be able to go up/down stairs reciprocally w/o rail w /o pain 02/02-LBP STG Duration 02/16 [facility] Goal (LTG) Pt will be able to go up/down ladder w/o pain. 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 02/02-avoiding d/t back pain STG Duration 02/26 Pulp Piler Goal (LTG) Pt will be able to go on hikes w/o pain greater than 1/10 in R foot or R knee. 02/02-avoiding d/t back pain LTG Duration 04/06 strength Short Term Goal (STG) Pt will be indep w/HEP STG Duration achieved-advancing as able Pulp Piler Goal (LTG) Pt will score 5/5 on BLE strength and at least 3/5 on LPM to show improved stability inc pt functional ability. 02/02-n/t LTG Duration 8/30 Assessment Summary Assessment Pt stood after session w/less SB and w/less L SB w/gait after manual. Pt was sore in glute region and encouraged to ice. Improved R hip flex and IR ROM but pt does remain limited which will affect back and knee tracking. Physical Therapy Plan Frequency and Duration Frequency of Treatment 1x/wk Duration of treatment (weeks) 10 Plan of Care Start Date 02/02/23 Plan of Care End Date 04/13/23 Next Visit Focus/Plan Next Note Type Treatment Note Next Visit Plan review exercises, cont to wrok on RLE wt acceptance and gait mechanics
--- NOTE | 2023-04-06 12:50 | PT.OTN ---
Current Diagnoses Unilateral primary osteoarthritis, right knee (04/06/23) Low back pain, unspecified (04/06/23) Pain in right foot (04/06/23) Difficulty in walking, not elsewhere classified (04/06/23) Weakness (04/06/23) Physical Therapy Treatment Note PT-OP-A Visit Information Start: 11/29/22 09:30 Freq: Status: Active Protocol: Document 04/06/23 09:49 [facility] (Rec: 04/06/23 11:38 [facility] [id number]) Out-Patient Physical Therapy Visit Information Visit Information Visit Type Progress Note Visit Note 08/24 Visit Start Time 10:50 Visit Stop Time 11:32 Total Visit Minutes 42 Visit Number 14 Number of TOWER [employer]IC [employer] SPECIALIST Visits 0 PT-OP-B Current Condition Start: 11/29/22 09:30 Freq: Status: Active Protocol: Document 12/01/22 09:05 [facility] (Rec: 12/01/22 09:57 [facility] [id number]) Current Condition History of Current Condition Current Complaints R knee pain & foot pain History of Current Condition Pt reprots he is having r knee pain. He has historyof back and R foot pain. He had insoles made for him but he likes his hokas better. Pt saw ortho and they told him he has arthritis whcih is new since he had xrays 5 years ago . He has medial arthritis. He is going to try PT, cortizone, PRP then stem cells. Pt reports standing hurts more than walking. He took his family to [place] in october and R knee was pretty bad afte rthat. Pt reprots he is weak. He has not been hiking much d/ t his foot. He has been going to the gym (knee exts(in all 3 planes), HS curls, wall squat w/wt, lunges static, heel raises). Pt reports R foot is giving him trouble on/off and is shoe dependent. it is not as bad as it was lurdes last treated. He is considering the carbon fiber insoles to help. His custom orthotics and stewart often irritate his foot . Pt is having to gut a bathroom and redo to help son and ahs a lot more to do w/ their new house. He can only last 5 hours d/t knee and foot pain. 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 It is worse in the bed and feels more glutes and HS in chair. Riding feels amazing PT-OP-D Balance Start: 11/29/22 09:30 Freq: Status: Active Protocol: Document 12/01/22 09:05 [facility] (Rec: 12/01/22 09:57 [facility] [id number]) Balance Tests Single Limb Standing Single Limb- Right 30 sec w/lat lean Single Limb- Left 30 sec w/lat lean PT-OP-F Manual Assessment Start: 11/29/22 09:30 Freq: Status: Active Protocol: Document 12/01/22 09:05 [facility] (Rec: 12/01/22 09:57 [facility] [id number]) Manual Assessments Soft Tissue Assessment Soft Tissue Mobility Assessment R calf, HS, add, ITB, VL tight & tender Joint Mobility Assessment Joint Mobility Assessment IR R femur w/knee bend, ER tibia; talus R does not glide post w/knee bend PT-OP-G Mobility & Gait Start: 11/29/22 09:30 Freq: Status: Active Protocol: Document 12/01/22 09:05 [facility] (Rec: 12/01/22 09:57 [facility] [id number]) OP Gait Assessment Comments Gait Comments SB L; hard landing onto L; dec push off R; rigid upper body PT-OP-J Posture/Palpation/Skin Start: 11/29/22 09:30 Freq: Status: Active Protocol: Document 04/06/23 09:49 [facility] (Rec: 04/06/23 11:38 [facility] [id number]) Posture Evaluation Kary Postural Classification System Vertebral Compression Test 3 Elbow Flexion Test 3 Lumbar Protective Mechanism Left AP 1 Lumbar Protective Mechanism Right AP 1 Lumbar Protective Mechanism Left PA 2 Lumbar Protective Mechanism Right PA 2 PT-OP-K Range of Motion Start: 11/29/22 09:30 Freq: Status: Active Protocol: Document 12/01/22 09:05 [facility] (Rec: 12/01/22 09:57 [facility] [id number]) Knee Goniometric Range of Motion Knee Right Flexion Active (degrees) 123 Flexion Passive (degrees) 130 Extension Active (degrees) 0 Comments tight w/passive flex; stiff w/ ext Left Flexion Active (degrees) 122 Extension Active (degrees) 0 PT-OP-L Special Tests Start: 11/29/22 09:30 Freq: Status: Active Protocol: Document 12/01/22 09:05 [facility] (Rec: 12/01/22 09:57 [facility] [id number]) Special Tests Lumbar Spine Special Tests Straight Leg Raise Test Results neg; good HS range B Knee Special Tests Johnny Test Results R>L quad and RF tightness Fernandez's Compression Test Results neg R Dumas Chondromalacia Test Results pos R 4 way liagment Test Results neg R Thessaly Test 5 Degrees Test Results neg R Jasvir Test Test Results neg PT-OP-M Strength Start: 11/29/22 09:30 Freq: Status: Active Protocol: Document 04/06/23 09:49 [facility] (Rec: 04/06/23 11:38 [facility] [id number]) Hip Strength Hip Manual Muscle Testing Right Flexion (L2) 4+ Good+ Extension (S1) 3 Fair Abduction 3 Fair Adduction 5 Normal External Rotation 4+ Good+ Internal Rotation 5 Normal Left Flexion (L2) 4 Good Extension (S1) 3+ Fair+ Abduction 5 Normal Adduction 5 Normal External Rotation 4+ Good+ Internal Rotation 5 Normal Knee Strength Knee Manual Muscle Testing Right Flexion (S2) 5 Normal Extension (L3) 5 Normal Left Flexion (S2) 5 Normal Extension (L3) 5 Normal Ankle/Foot Strength Ankle and Foot Manual Muscle Testing Right Dorsiflexion (L4) 5 Normal Plantarflexion (S1) 5 Normal Inversion 5 Normal Eversion (S1) 5 Normal Comments 20 heels raises w/tingling in bottom of foot Left Dorsiflexion (L4) 5 Normal Plantarflexion (S1) 5 Normal Inversion 5 Normal Eversion (S1) 5 Normal Comments 20 heel raises: 5/5 B toe flex /ext PT-OP-Q Treatments Start: 11/29/22 09:30 Freq: Status: Active Protocol: Document 04/06/23 09:49 [facility] (Rec: 04/06/23 11:38 [facility] [id number]) Therapeutic Exercises Supine Exercises stretch Supine Exercise Name review figure 4, piriformis & active HS Reps/Minutes 2 min total Standing Exercises pelvic shear Standing Exercise Name to L Reps/Minutes 10 Comments hand on wall self mob Standing Exercise Name hip abd self mob at counter Reps/Minutes 2 min sidestep Side bilateral Equipment Used peach band at knees Reps/Minutes 10ft ea stretch Standing Exercise Name R hip flexor Reps/Minutes 30 sec Manual Therapy Treatment Soft Tissue Mobilization quad Body Location R Mobilization Type Rolling Comments w/passive ext s/l ITB Body Location R lat Mobilization Type Rolling Comments w/abd passive s/l & supine add Body Location R Mobilization Type Rolling Comments w/passive ext s/l HS Body Location R proximal med heads Mobilization Type Rolling Comments w/abd passive glute Body Location R Mobilization Type Sustained Pressure Comments w/hip abd Joint Mobilizations hip Comments R IR free the ball hooklying FM & abd fm s/l PT-OP-T Assessment and Plan Start: 11/29/22 09:30 Freq: Status: Active Protocol: Document 04/06/23 09:49 [facility] (Rec: 04/06/23 11:38 [facility] [id number]) Physical Therapy Assessment Goals stairs Short Term Goal (STG) Pt will be able to go up/down stairs reciprocally w/o rail w /o pain 02/02-LBP 04/06-mild R hip discomfort only w/wt acceptance on step up STG Duration 05/14 Baseball Player Goal (LTG) Pt will be able to go up/down ladder w/o pain. 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 02/02-avoiding d/t back pain 04/06-does 7k to 10k steps during the day LTG Duration 06/19 strength Short Term Goal (STG) Pt will be indep w/HEP STG Duration achieved-advancing as able Halfway Goal (LTG) Pt will score 5/5 on BLE strength and at least 3/5 on LPM to show improved stability inc pt functional ability. 02/02-n/t 04/06-mild improvment LTG Duration 06/19 Assessment Summary Assessment Pt is making slow progress w/ PT d/t mult times that he has flared up and had inc in back and leg pain by doing activities that have aggrevated this. he is improving w/posture but does still have limited core control overall and dec hip abd strength along w/dec R hip mobility. Physical Therapy Plan Frequency and Duration Frequency of Treatment 1x/wk Duration of treatment (weeks) 12 Plan of Care Start Date 04/06/23 Plan of Care End Date 06/29/23 Therapeutic Interventions Therapeutic Interventions Balance Training,Gait Training ,Home Exercise Program,Joint Mobilizations,Manual Therapy, Neuromuscular Re-education, Orthotic/Prosthetic Management ,Patient/Caregiver Education, Self-Care/Home Management,Soft Tissue Mobilization,Taping, Therapeutic Activities, Therapeutic Exercises Modalities Cold Pack/Ice Massage,Electric Stimulation,Hot Packs, Infrared Therapy,Iontophoresis ,Ultrasound Next Visit Focus/Plan Next Note Type Treatment Note Next Visit Plan review exercises, cont to wrok on RLE wt acceptance and gait mechanics
--- NOTE | 2023-04-06 12:51 | PT.OPPOC ---
Physical, Occupational & Speech Therapy At [facility] Current Diagnoses Unilateral primary osteoarthritis, right knee (04/06/23) Low back pain, unspecified (04/06/23) Pain in right foot (04/06/23) Difficulty in walking, not elsewhere classified (04/06/23) Weakness (04/06/23) Visit Care Team Role Provider Type Cecy Dye ND Family Provider Non-Staff Primary Care Provider Specialty: Naturopathy Address: [address] [place] [address], [facility] Email: Lance Lats MD Attending Provider Non-Staff Referring Provider Specialty: Medical Address: [address] [place] [address], [id number] Email: Plan Of Care PT-OP-T Assessment and Plan Start: 11/29/22 09:30 Freq: Status: Active Protocol: Document 04/06/23 09:49 [facility] (Rec: 04/06/23 11:38 [facility] [id number]) Physical Therapy Assessment Goals stairs Short Term Goal (STG) Pt will be able to go up/down stairs reciprocally w/o rail w /o pain 02/02-LBP 04/06-mild R hip discomfort only w/wt acceptance on step up STG Duration 05/14 Group Home Goal (LTG) Pt will be able to go up/down ladder w/o pain. 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 02/02-avoiding d/t back pain 04/06-does 7k to 10k steps during the day LTG Duration 06/19 strength Short Term Goal (STG) Pt will be indep w/HEP STG Duration achieved-advancing as able Group Home Goal (LTG) Pt will score 5/5 on BLE strength and at least 3/5 on LPM to show improved stability inc pt functional ability. 02/02-n/t 04/06-mild improvment LTG Duration 06/19 Assessment Summary Assessment Pt is making slow progress w/ PT d/t mult times that he has flared up and had inc in back and leg pain by doing activities that have aggrevated this. he is improving w/posture but does still have limited core control overall and dec hip abd strength along w/dec R hip mobility. He is noting mornings are overall better an feels like PT cont to help him especailly in ability to stand up tall and be able to amb more upright. He would benefit from cont PT to progress these areas. Physical Therapy Plan Frequency and Duration Frequency of Treatment 1x/wk Duration of treatment (weeks) 12 Plan of Care Start Date 04/06/23 Plan of Care End Date 06/29/23 Therapeutic Interventions Therapeutic Interventions Balance Training,Gait Training ,Home Exercise Program,Joint Mobilizations,Manual Therapy, Neuromuscular Re-education, Orthotic/Prosthetic Management ,Patient/Caregiver Education, Self-Care/Home Management,Soft Tissue Mobilization,Taping, Therapeutic Activities, Therapeutic Exercises Modalities Cold Pack/Ice Massage,Electric Stimulation,Hot Packs, Infrared Therapy,Iontophoresis ,Ultrasound Next Visit Focus/Plan Next Note Type Treatment Note Next Visit Plan review exercises, cont to wrok on RLE wt acceptance and gait mechanics Plan of Care Dates Plan of Care Start Date 04/06/23 Plan of Care End Date 06/29/23 Electronically Signed by: Amy Alanis, PT 04/06/23 9140 If you are in agreement with this Plan of Care, please return a signed and dated copy. I have reviewed this Plan of Care and certify that the skilled therapy services above are required to meet the patient?s needs. Physician Signature Date Printed Name and Credentials Clinical Instructor Signature Printed Name and Credentials
--- NOTE | 2023-04-13 18:06 | PT.OTN ---
Current Diagnoses Unilateral primary osteoarthritis, right knee (04/13/23) Low back pain, unspecified (04/13/23) Pain in right foot (04/13/23) Difficulty in walking, not elsewhere classified (04/13/23) Weakness (04/13/23) Physical Therapy Treatment Note PT-OP-A Visit Information Start: 11/29/22 09:30 Freq: Status: Active Protocol: Document 04/13/23 10:53 [facility] (Rec: 04/13/23 18:06 [facility] [id number]) Out-Patient Physical Therapy Visit Information Visit Information Visit Type Treatment Note Visit Note 09/24 Visit Start Time 10:51 Visit Stop Time 11:32 Total Visit Minutes 41 Visit Number 15 Number of FINANCIAL SERVICES INTERN Visits 0 PT-OP-B Current Condition Start: 11/29/22 09:30 Freq: Status: Active Protocol: Document 12/01/22 09:05 [facility] (Rec: 12/01/22 09:57 [facility] [id number]) Current Condition History of Current Condition Current Complaints R knee pain & foot pain History of Current Condition Pt reprots he is having r knee pain. He has historyof back and R foot pain. He had insoles made for him but he likes his hokas better. Pt saw ortho and they told him he has arthritis whcih is new since he had xrays 5 years ago . He has medial arthritis. He is going to try PT, cortizone, PRP then stem cells. Pt reports standing hurts more than walking. He took his family to [employer] in october and R knee was pretty bad afte rthat. Pt reprots he is weak. He has not been hiking much d/ t his foot. He has been going to the gym (knee exts(in all 3 planes), HS curls, wall squat w/wt, lunges static, heel raises). Pt reports R foot is giving him trouble on/off and is shoe dependent. it is not as bad as it was lurdes last treated. He is considering the carbon fiber insoles to help. His custom orthotics and stewart often irritate his foot . Pt is having to gut a bathroom and redo to help son and ahs a lot more to do w/ their new house. He can only last 5 hours d/t knee and foot pain. 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 PT-OP-D Balance Start: 11/29/22 09:30 Freq: Status: Active Protocol: Document 12/01/22 09:05 [facility] (Rec: 12/01/22 09:57 [facility] [id number]) Balance Tests Single Limb Standing Single Limb- Right 30 sec w/lat lean Single Limb- Left 30 sec w/lat lean PT-OP-F Manual Assessment Start: 11/29/22 09:30 Freq: Status: Active Protocol: Document 12/01/22 09:05 [facility] (Rec: 12/01/22 09:57 [facility] [id number]) Manual Assessments Soft Tissue Assessment Soft Tissue Mobility Assessment R calf, HS, add, ITB, VL tight & tender Joint Mobility Assessment Joint Mobility Assessment IR R femur w/knee bend, ER tibia; talus R does not glide post w/knee bend PT-OP-G Mobility & Gait Start: 11/29/22 09:30 Freq: Status: Active Protocol: Document 12/01/22 09:05 [facility] (Rec: 12/01/22 09:57 [facility] [id number]) OP Gait Assessment Comments Gait Comments SB L; hard landing onto L; dec push off R; rigid upper body PT-OP-J Posture/Palpation/Skin Start: 11/29/22 09:30 Freq: Status: Active Protocol: Document 04/06/23 09:49 [facility] (Rec: 04/06/23 11:38 [facility] [id number]) Posture Evaluation Kary Postural Classification System Vertebral Compression Test 3 Elbow Flexion Test 3 Lumbar Protective Mechanism Left AP 1 Lumbar Protective Mechanism Right AP 1 Lumbar Protective Mechanism Left PA 2 Lumbar Protective Mechanism Right PA 2 PT-OP-K Range of Motion Start: 11/29/22 09:30 Freq: Status: Active Protocol: Document 12/01/22 09:05 [facility] (Rec: 12/01/22 09:57 [facility] [id number]) Knee Goniometric Range of Motion Knee Right Flexion Active (degrees) 123 Flexion Passive (degrees) 130 Extension Active (degrees) 0 Comments tight w/passive flex; stiff w/ ext Left Flexion Active (degrees) 122 Extension Active (degrees) 0 PT-OP-L Special Tests Start: 11/29/22 09:30 Freq: Status: Active Protocol: Document 12/01/22 09:05 [facility] (Rec: 12/01/22 09:57 [facility] [id number]) Special Tests Lumbar Spine Special Tests Straight Leg Raise Test Results neg; good HS range B Knee Special Tests Johnny Test Results R>L quad and RF tightness Fernandez's Compression Test Results neg R Dumas Chondromalacia Test Results pos R 4 way liagment Test Results neg R Thessaly Test 5 Degrees Test Results neg R Jasvir Test Test Results neg PT-OP-M Strength Start: 11/29/22 09:30 Freq: Status: Active Protocol: Document 04/06/23 09:49 [facility] (Rec: 04/06/23 11:38 [facility] [id number]) Hip Strength Hip Manual Muscle Testing Right Flexion (L2) 4+ Good+ Extension (S1) 3 Fair Abduction 3 Fair Adduction 5 Normal External Rotation 4+ Good+ Internal Rotation 5 Normal Left Flexion (L2) 4 Good Extension (S1) 3+ Fair+ Abduction 5 Normal Adduction 5 Normal External Rotation 4+ Good+ Internal Rotation 5 Normal Knee Strength Knee Manual Muscle Testing Right Flexion (S2) 5 Normal Extension (L3) 5 Normal Left Flexion (S2) 5 Normal Extension (L3) 5 Normal Ankle/Foot Strength Ankle and Foot Manual Muscle Testing Right Dorsiflexion (L4) 5 Normal Plantarflexion (S1) 5 Normal Inversion 5 Normal Eversion (S1) 5 Normal Comments 20 heels raises w/tingling in bottom of foot Left Dorsiflexion (L4) 5 Normal Plantarflexion (S1) 5 Normal Inversion 5 Normal Eversion (S1) 5 Normal Comments 20 heel raises: 5/5 B toe flex /ext PT-OP-Q Treatments Start: 11/29/22 09:30 Freq: Status: Active Protocol: Document 04/13/23 10:53 [facility] (Rec: 04/13/23 18:06 [facility] [id number]) Therapeutic Exercises Standing Exercises lunges Side bilateral Reps/Minutes 10 Comments w/mirror w/cues for avoiding hip shear R w/RLE fwd Manual Therapy Treatment Soft Tissue Mobilization quad Body Location R Mobilization Type Rolling Comments w/ hooklying IR/ER ITB Body Location R lat Mobilization Type Rolling Comments w/knee flex Joint Mobilizations tibfem Comments R AP tibia w/IR and R femur AP FM & hooklying PA tibia FM tibfib Comments R distraction & AP FM supine PT-OP-T Assessment and Plan Start: 11/29/22 09:30 Freq: Status: Active Protocol: Document 04/13/23 10:53 [facility] (Rec: 04/13/23 18:06 [facility] [id number]) Physical Therapy Assessment Goals stairs Short Term Goal (STG) Pt will be able to go up/down stairs reciprocally w/o rail w /o pain 02/02-LBP 04/06-mild R hip discomfort only w/wt acceptance on step up STG Duration 05/14 Retirement Goal (LTG) Pt will be able to go up/down ladder w/o pain. 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 02/02-avoiding d/t back pain 04/06-does 7k to 10k steps during the day LTG Duration 06/19 strength Short Term Goal (STG) Pt will be indep w/HEP STG Duration achieved-advancing as able Gastroenterology Nurse Practitioner Goal (LTG) Pt will score 5/5 on BLE strength and at least 3/5 on LPM to show improved stability inc pt functional ability. 02/02-n/t 04/06-mild improvment LTG Duration 06/19 Assessment Summary Assessment Pt knee tracks well initially then tends to track internally then go back to more appropriate tracking in squatting. After manual, pt did have improved knee tracking to more over 2nd toe consistently through movement. He is cont to improve w/his posture and standing position. P tto bring in pic of sleep psoition for PT to ase. Physical Therapy Plan Frequency and Duration Frequency of Treatment 1x/wk Duration of treatment (weeks) 12 Plan of Care Start Date 04/06/23 Plan of Care End Date 06/29/23 Next Visit Focus/Plan Next Note Type Treatment Note Next Visit Plan review exercises, cont to wrok on RLE wt acceptance and gait mechanics & R knee tracking
--- NOTE | 2023-04-27 12:01 | PT.OTN ---
Current Diagnoses Unilateral primary osteoarthritis, right knee (04/27/23) Low back pain, unspecified (04/27/23) Pain in right foot (04/27/23) Difficulty in walking, not elsewhere classified (04/27/23) Weakness (04/27/23) Physical Therapy Treatment Note PT-OP-A Visit Information Start: 11/29/22 09:30 Freq: Status: Active Protocol: Document 04/27/23 09:09 [facility] (Rec: 04/27/23 12:01 [facility] [id number]) Out-Patient Physical Therapy Visit Information Visit Information Visit Type Treatment Note Visit Note 10/22 Visit Start Time 09:07 Visit Stop Time 09:48 Total Visit Minutes 41 Visit Number 16 Number of HAND CEMENTER Visits 0 PT-OP-B Current Condition Start: 11/29/22 09:30 Freq: Status: Active Protocol: Document 12/01/22 09:05 [facility] (Rec: 12/01/22 09:57 [facility] [id number]) Current Condition History of Current Condition Current Complaints R knee pain & foot pain History of Current Condition Pt reprots he is having r knee pain. He has historyof back and R foot pain. He had insoles made for him but he likes his hokas better. Pt saw ortho and they told him he has arthritis whcih is new since he had xrays 5 years ago . He has medial arthritis. He is going to try PT, cortizone, PRP then stem cells. Pt reports standing hurts more than walking. He took his family to [employer] in october and R knee was pretty bad afte rthat. Pt reprots he is weak. He has not been hiking much d/ t his foot. He has been going to the gym (knee exts(in all 3 planes), HS curls, wall squat w/wt, lunges static, heel raises). Pt reports R foot is giving him trouble on/off and is shoe dependent. it is not as bad as it was lurdes last treated. He is considering the carbon fiber insoles to help. His custom orthotics and stewart often irritate his foot . Pt is having to gut a bathroom and redo to help son and ahs a lot more to do w/ their new house. He can only last 5 hours d/t knee and foot pain. 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 Been tight in R LB and R HS. Can sleep in bed now but can't sleep on R side. Knee has been present a little more d/t tightness in leg. He has been riding. He did a hard ride the other day and just had muscle soreness. Raceed in pool w/kids and the patella felt weird for a day on L. PT-OP-D Balance Start: 11/29/22 09:30 Freq: Status: Active Protocol: Document 12/01/22 09:05 [facility] (Rec: 12/01/22 09:57 [facility] [id number]) Balance Tests Single Limb Standing Single Limb- Right 30 sec w/lat lean Single Limb- Left 30 sec w/lat lean PT-OP-F Manual Assessment Start: 11/29/22 09:30 Freq: Status: Active Protocol: Document 12/01/22 09:05 [facility] (Rec: 12/01/22 09:57 [facility] [id number]) Manual Assessments Soft Tissue Assessment Soft Tissue Mobility Assessment R calf, HS, add, ITB, VL tight & tender Joint Mobility Assessment Joint Mobility Assessment IR R femur w/knee bend, ER tibia; talus R does not glide post w/knee bend PT-OP-G Mobility & Gait Start: 11/29/22 09:30 Freq: Status: Active Protocol: Document 12/01/22 09:05 [facility] (Rec: 12/01/22 09:57 [facility] [id number]) OP Gait Assessment Comments Gait Comments SB L; hard landing onto L; dec push off R; rigid upper body PT-OP-J Posture/Palpation/Skin Start: 11/29/22 09:30 Freq: Status: Active Protocol: Document 04/06/23 09:49 [facility] (Rec: 04/06/23 11:38 [facility] [id number]) Posture Evaluation Kary Postural Classification System Vertebral Compression Test 3 Elbow Flexion Test 3 Lumbar Protective Mechanism Left AP 1 Lumbar Protective Mechanism Right AP 1 Lumbar Protective Mechanism Left PA 2 Lumbar Protective Mechanism Right PA 2 PT-OP-K Range of Motion Start: 11/29/22 09:30 Freq: Status: Active Protocol: Document 12/01/22 09:05 [facility] (Rec: 12/01/22 09:57 [facility] [id number]) Knee Goniometric Range of Motion Knee Right Flexion Active (degrees) 123 Flexion Passive (degrees) 130 Extension Active (degrees) 0 Comments tight w/passive flex; stiff w/ ext Left Flexion Active (degrees) 122 Extension Active (degrees) 0 PT-OP-L Special Tests Start: 11/29/22 09:30 Freq: Status: Active Protocol: Document 12/01/22 09:05 [facility] (Rec: 12/01/22 09:57 [facility] [id number]) Special Tests Lumbar Spine Special Tests Straight Leg Raise Test Results neg; good HS range B Knee Special Tests Johnny Test Results R>L quad and RF tightness Fernandez's Compression Test Results neg R Dumas Chondromalacia Test Results pos R 4 way liagment Test Results neg R Thessaly Test 5 Degrees Test Results neg R Jasvir Test Test Results neg PT-OP-M Strength Start: 11/29/22 09:30 Freq: Status: Active Protocol: Document 04/06/23 09:49 [facility] (Rec: 04/06/23 11:38 [facility] [id number]) Hip Strength Hip Manual Muscle Testing Right Flexion (L2) 4+ Good+ Extension (S1) 3 Fair Abduction 3 Fair Adduction 5 Normal External Rotation 4+ Good+ Internal Rotation 5 Normal Left Flexion (L2) 4 Good Extension (S1) 3+ Fair+ Abduction 5 Normal Adduction 5 Normal External Rotation 4+ Good+ Internal Rotation 5 Normal Knee Strength Knee Manual Muscle Testing Right Flexion (S2) 5 Normal Extension (L3) 5 Normal Left Flexion (S2) 5 Normal Extension (L3) 5 Normal Ankle/Foot Strength Ankle and Foot Manual Muscle Testing Right Dorsiflexion (L4) 5 Normal Plantarflexion (S1) 5 Normal Inversion 5 Normal Eversion (S1) 5 Normal Comments 20 heels raises w/tingling in bottom of foot Left Dorsiflexion (L4) 5 Normal Plantarflexion (S1) 5 Normal Inversion 5 Normal Eversion (S1) 5 Normal Comments 20 heel raises: 5/5 B toe flex /ext PT-OP-Q Treatments Start: 11/29/22 09:30 Freq: Status: Active Protocol: Document 04/27/23 09:09 [facility] (Rec: 04/27/23 12:01 [facility] [id number]) Therapeutic Exercises Standing Exercises pelvic shear Standing Exercise Name to L Reps/Minutes 10 Comments hand on wall wt shifts Standing Exercise Name to SLS in mirror focus on no lat lean or lat hip shear Side bilateral Reps/Minutes 10 ea stretch Standing Exercise Name R hip flexor Reps/Minutes 30 sec Manual Therapy Treatment Soft Tissue Mobilization LE Body Location thigh circumfrential & ITB R Mobilization Type Rolling,Strumming,Sustained Pressure Intensity/Depth Moderate Comments in s/l w/LE on foam roll w/ knee ext w/manual & plunger and in fencer position Joint Mobilizations ribs Comments R ribs SB R w/FM ribs 5-10 innominate Joint B add FM hip Joint B add FM s/l Self-Care/Home Management Treatment Education Other Education 8 min: discussed pt's note/ referral from pain specialist and his PT recommendations and how it does match what we are currently doing in PT. Edu that working on posture is important and how his gait affects his pain in knee and back PT-OP-T Assessment and Plan Start: 11/29/22 09:30 Freq: Status: Active Protocol: Document 04/27/23 09:09 [facility] (Rec: 04/27/23 12:01 [facility] [id number]) Physical Therapy Assessment Goals stairs Short Term Goal (STG) Pt will be able to go up/down stairs reciprocally w/o rail w /o pain 02/02-LBP 04/06-mild R hip discomfort only w/wt acceptance on step up STG Duration 05/14 Fpc Goal (LTG) Pt will be able to go up/down ladder w/o pain. 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 02/02-avoiding d/t back pain 04/06-started mild construction work of up to 3 hours ( painting) 4/10 after STG Duration 05/14 Journalism Instructor Goal (LTG) Pt will be able to go on hikes w/o pain greater than 1/10 in R foot or R knee. 02/02-avoiding d/t back pain 04/06-does 7k to 10k steps during the day LTG Duration 06/19 strength Short Term Goal (STG) Pt will be indep w/HEP STG Duration achieved-advancing as able Fpc Goal (LTG) Pt will score 5/5 on BLE strength and at least 3/5 on LPM to show improved stability inc pt functional ability. 02/02-n/t 04/06-mild improvment LTG Duration 06/19 Assessment Summary Assessment Pt had less discomfort w/B SB and improved range from 50% B to about 80% L and 65% R. He improved gait w/cues for wt acceptance. Physical Therapy Plan Frequency and Duration Frequency of Treatment 1x/wk Duration of treatment (weeks) 12 Plan of Care Start Date 04/06/23 Plan of Care End Date 06/29/23 Next Visit Focus/Plan Next Note Type Treatment Note Next Visit Plan cont to wrok on BLE wt acceptance and gait mechanics & R knee tracking
--- NOTE | 2023-06-08 12:14 | PT.OPDS ---
Current Diagnoses Unilateral primary osteoarthritis, right knee (04/27/23) Low back pain, unspecified (04/27/23) Pain in right foot (04/27/23) Difficulty in walking, not elsewhere classified (04/27/23) Weakness (04/27/23) Visit Care Team Role Provider Type Cecy Dye ND Family Provider Non-Staff Primary Care Provider Specialty: Naturopathy Address: [address] [place] [address], [id number] Email: Lance Last MD Attending Provider Non-Staff Referring Provider Specialty: Medical Address: [address] [place] [address], [id number] Email: Visit Number Visit Number 16 Discharge Summary PT-OP-B Current Condition Start: 11/29/22 09:30 Freq: Status: Active Protocol: Document 12/01/22 09:05 [facility] (Rec: 12/01/22 09:57 [facility] [id number]) Current Condition History of Current Condition Current Complaints R knee pain & foot pain History of Current Condition Pt reprots he is having r knee pain. He has historyof back and R foot pain. He had insoles made for him but he likes his hokas better. Pt saw ortho and they told him he has arthritis whcih is new since he had xrays 5 years ago . He has medial arthritis. He is going to try PT, cortizone, PRP then stem cells. Pt reports standing hurts more than walking. He took his family to [place] in [place] and R knee was pretty bad afte rthat. Pt reprots he is weak. He has not been hiking much d/ t his foot. He has been going to the gym (knee exts(in all 3 planes), HS curls, wall squat w/wt, lunges static, heel raises). Pt reports R foot is giving him trouble on/off and is shoe dependent. it is not as bad as it was whne last treated. He is considering the carbon fiber insoles to help. His custom orthotics and stewart often irritate his foot . Pt is having to gut a bathroom and redo to help son and ahs a lot more to do w/ their new house. He can only last 5 hours d/t knee and foot pain. 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 (Rec: 04/27/23 12:01 [facility] [id number]) OP-PT Subjective Patient Comments Patient Comments Pt has been doing some work at his son's house. Been tight in R LB and R HS. Can sleep in bed now but can't sleep on R side. Knee has been present a little more d/t tightness in leg. He has been riding. He did a hard ride the other day and just had muscle soreness. Raceed in pool w/kids and the patella felt weird for a day on L. PT-OP-D Balance Start: 11/29/22 09:30 Freq: Status: Active Protocol: Document 12/01/22 09:05 [facility] (Rec: 12/01/22 09:57 [facility] [id number]) Balance Tests Single Limb Standing Single Limb- Right 30 sec w/lat lean Single Limb- Left 30 sec w/lat lean PT-OP-F Manual Assessment Start: 11/29/22 09:30 Freq: Status: Active Protocol: Document 12/01/22 09:05 [facility] (Rec: 12/01/22 09:57 [facility] [id number]) Manual Assessments Soft Tissue Assessment Soft Tissue Mobility Assessment R calf, HS, add, ITB, VL tight & tender Joint Mobility Assessment Joint Mobility Assessment IR R femur w/knee bend, ER tibia; talus R does not glide post w/knee bend PT-OP-G Mobility & Gait Start: 11/29/22 09:30 Freq: Status: Active Protocol: Document 12/01/22 09:05 [facility] (Rec: 12/01/22 09:57 [facility] [id number]) OP Gait Assessment Comments Gait Comments SB L; hard landing onto L; dec push off R; rigid upper body PT-OP-J Posture/Palpation/Skin Start: 11/29/22 09:30 Freq: Status: Active Protocol: Document 04/06/23 09:49 [facility] (Rec: 04/06/23 11:38 [facility] [id number]) Posture Evaluation [facility] Postural Classification System Vertebral Compression Test 3 Elbow Flexion Test 3 Lumbar Protective Mechanism Left AP 1 Lumbar Protective Mechanism Right AP 1 Lumbar Protective Mechanism Left PA 2 Lumbar Protective Mechanism Right PA 2 PT-OP-K Range of Motion Start: 11/29/22 09:30 Freq: Status: Active Protocol: Document 12/01/22 09:05 [facility] (Rec: 12/01/22 09:57 [facility] [id number]) Knee Goniometric Range of Motion Knee Right Flexion Active (degrees) 123 Flexion Passive (degrees) 130 Extension Active (degrees) 0 Comments tight w/passive flex; stiff w/ ext Left Flexion Active (degrees) 122 Extension Active (degrees) 0 PT-OP-L Special Tests Start: 11/29/22 09:30 Freq: Status: Active Protocol: Document 12/01/22 09:05 [facility] (Rec: 12/01/22 09:57 [facility] [id number]) Special Tests Lumbar Spine Special Tests Straight Leg Raise Test Results neg; good HS range B Knee Special Tests Johnny Test Results R>L quad and RF tightness Fernandez's Compression Test Results neg R Dumas Chondromalacia Test Results pos R 4 way liagment Test Results neg R Thessaly Test 5 Degrees Test Results neg R Jasvir Test Test Results neg PT-OP-M Strength Start: 11/29/22 09:30 Freq: Status: Active Protocol: Document 04/06/23 09:49 [facility] (Rec: 04/06/23 11:38 [facility] [id number]) Hip Strength Hip Manual Muscle Testing Right Flexion (L2) 4+ Good+ Extension (S1) 3 Fair Abduction 3 Fair Adduction 5 Normal External Rotation 4+ Good+ Internal Rotation 5 Normal Left Flexion (L2) 4 Good Extension (S1) 3+ Fair+ Abduction 5 Normal Adduction 5 Normal External Rotation 4+ Good+ Internal Rotation 5 Normal Knee Strength Knee Manual Muscle Testing Right Flexion (S2) 5 Normal Extension (L3) 5 Normal Left Flexion (S2) 5 Normal Extension (L3) 5 Normal Ankle/Foot Strength Ankle and Foot Manual Muscle Testing Right Dorsiflexion (L4) 5 Normal Plantarflexion (S1) 5 Normal Inversion 5 Normal Eversion (S1) 5 Normal Comments 20 heels raises w/tingling in bottom of foot Left Dorsiflexion (L4) 5 Normal Plantarflexion (S1) 5 Normal Inversion 5 Normal Eversion (S1) 5 Normal Comments 20 heel raises: 5/5 B toe flex /ext PT-OP-T Assessment and Plan Start: 11/29/22 09:30 Freq: Status: Active Protocol: Document 06/08/23 12:11 [facility] (Rec: 06/08/23 12:14 [facility] [id number]) Physical Therapy Assessment Goals stairs Short Term Goal (STG) Pt will be able to go up/down stairs reciprocally w/o rail w /o pain 02/02-LBP 04/06-mild R hip discomfort only w/wt acceptance on step up STG Duration achieved Penitentiary Goal (LTG) Pt will be able to go up/down ladder w/o pain. 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 02/02-avoiding d/t back pain 04/06-does 7k to 10k steps during the day LTG Duration achieved reutrned to hikes strength Short Term Goal (STG) Pt will be indep w/HEP STG Duration achieved-advancing as able Metal Caster Goal (LTG) Pt will score 5/5 on BLE strength and at least 3/5 on LPM to show improved stability inc pt functional ability. 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 DC d /t pt request and per subjective questions w/pt apperas to be meeting most goals. Physical Therapy Plan Discharge Physical Therapy Discharge Reasons Patient Request
== END 2023-06-10 13:20 | disposition home or self-care (01) ==
LOC: PHYS 09:00
PROVIDERS: Family Provider Naturopath; PCP Naturopath; Referring Provider Physical Medicine & Rehabilitation; Visit Provider Physical Medicine & Rehabilitation
DX: M17.11 Unilateral primary osteoarthritis, right knee (principal); R26.2 Difficulty in walking, not elsewhere classified; R53.1 Weakness; M79.671 Pain in right foot; M54.50 Low back pain, unspecified
CPT/HCPCS: 97110; 97112; 97140; 97162; 97530; 97535; 97750

== ENCOUNTER 2024-07-18 08:15 | Outpatient (RCR) | payer MEDICARE, OTHER, SELFPAY ==
--- NOTE | 2024-05-07 09:55 | PT.OIE ---
Current Diagnoses Pain in unspecified shoulder (05/07/24) Abnormal posture (05/07/24) Weakness (05/07/24) Past Medical History (Last Reviewed 02/28/23 @ 14:18 by Davi Luciano MD) Contusion of hand, left Fall Hand injury Hyperlipidemia Hypertension Low back pain Lumbar radiculopathy Sleep apnea Visit Care Team Role Provider Type Cecy Dye ND Family Provider Non-Staff Specialty: Naturopathy Address: [address] [place] [address], [id number] Email: RADHA Flannery Attending Provider Non-Staff Primary Care Provider Referring Provider Specialty: Family Practice Address: [address] [place] [address], [phone] Email: Physical Therapy Initial Evaluation PT-OP-A Visit Information Start: 05/03/24 10:09 Freq: Status: Active Protocol: Document 05/07/24 07:35 [facility] (Rec: 05/07/24 09:55 [facility] [id number]) Out-Patient Physical Therapy Visit Information Visit Information Visit Type Initial Evaluation Visit Note 08/24 Visit Start Time 07:33 Visit Stop Time 08:18 Visit Number 1 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 Current Complaints B shoulder pain History of Current Condition Pt has had L shoulder pain and stiffness that has been going on for about a decade. R shoulde rgives him trouble also but not as bad. Has done PT to L shoulder in past but it didn't work. Probably about 5 years ago but didn't help. Pain was gradual onset. Pt has hx of back pain and R knee pain. Pt reports he does have neck pain when sleeping and gets CANDELARIO. Does have some narrowing in the neck per pt. hx of accident in [place] where shattered his L elbow and had sx in [place] and it was redone here (2013) Treatment Goals Patient/Caregiver Goals improve mobility of shoudlers PT-OP-C Subjective Start: 05/03/24 10:09 Freq: Status: Active Protocol: Document 05/07/24 07:35 [facility] (Rec: 05/07/24 09:55 [facility] [id number]) Patient Questionnaires Quick Dash- Upper Extremity Quick Dash UE Score 29.5 OP-PT Pain Assessment Location L shoulder Pain Location Details ant/sup/post Intensity 6 Scale Used Numeric (0 - 10) Description Sharp,With Movement Frequency Intermittent Pain Duration as soon as stops Pain Aggravating Factors ADL's Other Pain Aggravating Factors reach across body, overhead & behind,putting on jackets, construction, s/l Pain Alleviating Factors Inactivity PT-OP-J Posture/Palpation/Skin Start: 05/03/24 10:09 Freq: Status: Active Protocol: Document 05/07/24 07:35 [facility] (Rec: 05/07/24 09:55 [facility] [id number]) Posture Evaluation [facility] Postural Classification System [facility] Postural Classifications Posterior/Anterior Elbow Flexion Test 2 Comments Posture Comments B GHJ ant; R scap abd, trunk SB L PT-OP-K Range of Motion Start: 05/03/24 10:09 Freq: Status: Active Protocol: Document 05/07/24 07:35 [facility] (Rec: 05/07/24 09:55 [facility] [id number]) Shoulder Goniometric Range of Motion Shoulder Right Active Flexion 122 Extension 58 Abduction 134 External Rotation at 0 degrees Abduction 40 Internal Rotation Behind Back (text) T12 Comments goes towards scaption w/abd Left Active Flexion 121 Extension 49 Abduction 108 External Rotation at 0 degrees Abduction 39 Internal Rotation Behind Back (text) T11 Comments pain at end ranges w/all L>R PT-OP-L Special Tests Start: 05/03/24 10:09 Freq: Status: Active Protocol: Document 05/07/24 07:35 [facility] (Rec: 05/07/24 09:55 [facility] [id number]) Special Tests Shoulder Special Tests n tension Comments neg all biceps load Comments neg B crank Comments positive L w/IR [place] Test Comments positive B Speed's Biceps Comments neg B Neer Impingement Comments positive B [place] Paul Impingement Comments positive R Empty Can Comments positive L PT-OP-M Strength Start: 05/03/24 10:09 Freq: Status: Active Protocol: Document 05/07/24 07:35 [facility] (Rec: 05/07/24 09:55 [facility] [id number]) Shoulder Strength Shoulder Manual Muscle Testing R Flexion 4 Good Extension 4 Good Abduction (C5) 4- Good- External Rotation 4- Good- Internal Rotation 4+ Good+ Horizontal Abduction 5 Normal Horizontal Adduction 5 Normal L Flexion 4- Good- Extension 4+ Good+ Abduction (C5) 3+ Fair+ External Rotation 3+ Fair+ Internal Rotation 4 Good Horizontal Abduction 4 Good Horizontal Adduction 4 Good PT-OP-Q Treatments Start: 05/03/24 10:09 Freq: Status: Active Protocol: Document 05/07/24 07:35 [facility] (Rec: 05/07/24 09:55 [facility] [id number]) Manual Therapy Treatment Consent Patient gave verbal consent for manual Yes treatment Soft Tissue Mobilization pec Body Location L major/minor Mobilization Type Rolling,Sustained Pressure Intensity/Depth Moderate Body Position Supine Joint Mobilizations SC Joint L inf FM w/shrug AC Body Position Sidelying Comments ant clavicle FM w/c/r shrug L PT-OP-T Assessment and Plan Start: 05/03/24 10:09 Freq: Status: Active Protocol: Document 05/07/24 07:35 [facility] (Rec: 05/07/24 09:55 [facility] [id number]) Physical Therapy Assessment Rehab Potential Rehabilitation Potential Good Evaluation Complexity Number of Personal Factors/Comorbidities 1-2 Number of Body Systems Impaired 4 or More Clinical Presentation at Evaluation Evolving Impairments Impairments Activity Tolerance,Functional Activities,Functional Mobility ,Pain,Posture,ROM,Soft Tissue Mobility,Strength Goals activities Short Term Goal (STG) pt will be able to reach across body and put on jackets w/o inc pain. STG Duration 06/15 Deck Scaler Goal (LTG) Pt will be able to do overhead activities, sleep on side and help as needed w/construction activities w/o inc pain greater than 2/10 LTG Duration 12 ROM Short Term Goal (STG) Pt will be able to reach behind his back w/IR to at least T8 to allow greater ease w/washing back. STG Duration 06/15 Fpc Goal (LTG) Pt will have at least 150 deg flex and abd w/o inc pain B in order to allow greater ease w /overhead activities. LTG Duration 12 strength Short Term Goal (STG) Pt will be indep w/HEP STG Duration 06/15 Deck Scaler Goal (LTG) Pt will score at least 4/5 on EFT and at least 4+/5 on all BUE MMT w/o inc pain to allow greater ease w/typical daily activities. LTG Duration 07/16 Assessment Summary Assessment Pt presents w/chronic B shoulder pain L>R w/decreased ROM and strength B and positive for testing for impingment and supraspinatus tendonosis B and possible L labral tear w/2/3 tests. Pt's neck pain may also be related to these deficits. He has empty end feels w/end range and pain w/all mobility likely related to overall dec scapulothoracic mobility, posture, and shoulder joint restrictions and would benefit from skilled PT to address his deficits and imrpove his mobility to allow greater ease w/ADLs and typical activities . Physical Therapy Plan Frequency and Duration Frequency of Treatment 2x/Week Duration of treatment (weeks) 10 Plan of Care Start Date 05/07/24 Plan of Care End Date 07/16/24 Therapeutic Interventions Therapeutic Interventions Gait Training,Home Exercise Program,Joint Mobilizations, Manual Therapy,Neuromuscular Re-education,Patient/Caregiver Education,Self-Care/Home Management,Soft Tissue Mobilization,Taping, Therapeutic Activities Modalities Cold Pack/Ice Massage,Electric Stimulation,Hot Packs, Infrared Therapy,Iontophoresis ,Ultrasound Next Visit Focus/Plan Next Note Type Treatment Note Next Visit Plan HEP: IR, ER, serratus punch, pec stretch, foam roll Go over row and lat pull down machine form manual: work on L>R shoulder: pecs, UT, AC, SC, tspine, ribs , GHJ for improved mobility
--- NOTE | 2024-05-07 09:55 | PT.OPPOC ---
Physical, Occupational & Speech Therapy At [facility] Current Diagnoses Pain in unspecified shoulder (05/07/24) Abnormal posture (05/07/24) Weakness (05/07/24) Visit Care Team Role Provider Type Cecy Dye ND Family Provider Non-Staff Specialty: Naturopathy Address: [address] [place] [address], [phone] Email: RADHA Flannery Attending Provider Non-Staff Primary Care Provider Referring Provider Specialty: Family Practice Address: [address] [place] [address], [phone] Email: Plan Of Care PT-OP-B Current Condition Start: 05/03/24 10:09 Freq: Status: Active Protocol: Document 05/07/24 07:35 [facility] (Rec: 05/07/24 09:55 [facility] [id number]) Current Condition History of Current Condition Onset Date about 10 years. Current Complaints B shoulder pain History of Current Condition Pt has had L shoulder pain and stiffness that has been going on for about a decade. R shoulde rgives him trouble also but not as bad. Has done PT to L shoulder in past but it didn't work. Probably about 5 years ago but didn't help. Pain was gradual onset. Pt has hx of back pain and R knee pain. Pt reports he does have neck pain when sleeping and gets CANDELARIO. Does have some narrowing in the neck per pt. hx of accident in [place] where shattered his L elbow and had sx in [place] and it was redone here (2013) Treatment Goals Patient/Caregiver Goals improve mobility of shoudlers PT-OP-T Assessment and Plan Start: 05/03/24 10:09 Freq: Status: Active Protocol: Document 05/07/24 07:35 [facility] (Rec: 05/07/24 09:55 [facility] [id number]) Physical Therapy Assessment Rehab Potential Rehabilitation Potential Good Evaluation Complexity Number of Personal Factors/Comorbidities 1-2 Number of Body Systems Impaired 4 or More Clinical Presentation at Evaluation Evolving Impairments Impairments Activity Tolerance,Functional Activities,Functional Mobility ,Pain,Posture,ROM,Soft Tissue Mobility,Strength Goals activities Short Term Goal (STG) pt will be able to reach across body and put on jackets w/o inc pain. 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 STG Duration 06/15 Group Home Goal (LTG) Pt will have at least 150 deg flex and abd w/o inc pain B in order to allow greater ease w /overhead activities. LTG Duration 07/16 strength Short Term Goal (STG) Pt will be indep w/HEP STG Duration 06/15 Filling Machine Tender Goal (LTG) Pt will score at least 4/5 on EFT and at least 4+/5 on all BUE MMT w/o inc pain to allow greater ease w/typical daily activities. LTG Duration 07/16 Assessment Summary Assessment Pt presents w/chronic B shoulder pain L>R w/decreased ROM and strength B and positive for testing for impingment and supraspinatus tendonosis B and possible L labral tear w/2/3 tests. Pt's neck pain may also be related to these deficits. He has empty end feels w/end range and pain w/all mobility likely related to overall dec scapulothoracic mobility, posture, and shoulder joint restrictions and would benefit from skilled PT to address his deficits and imrpove his mobility to allow greater ease w/ADLs and typical activities . Physical Therapy Plan Frequency and Duration Frequency of Treatment 2x/Week Duration of treatment (weeks) 10 Plan of Care Start Date 05/07/24 Plan of Care End Date 07/16/24 Therapeutic Interventions Therapeutic Interventions Gait Training,Home Exercise Program,Joint Mobilizations, Manual Therapy,Neuromuscular Re-education,Patient/Caregiver Education,Self-Care/Home Management,Soft Tissue Mobilization,Taping, Therapeutic Activities Modalities Cold Pack/Ice Massage,Electric Stimulation,Hot Packs, Infrared Therapy,Iontophoresis ,Ultrasound Next Visit Focus/Plan Next Note Type Treatment Note Next Visit Plan HEP: IR, ER, serratus punch, pec stretch, foam roll Go over row and lat pull down machine form manual: work on L>R shoulder: pecs, UT, AC, SC, tspine, ribs , GHJ for improved mobility Plan of Care Dates Plan of Care Start Date 05/07/24 Plan of Care End Date 07/16/24 Electronically Signed by: Amy Alanis, PT 05/07/24 0955 If you are in agreement with this Plan of Care, please return a signed and dated copy. I have reviewed this Plan of Care and certify that the skilled therapy services above are required to meet the patient?s needs. Physician Signature Date Printed Name and Credentials Clinical Instructor Signature Printed Name and Credentials
--- NOTE | 2024-05-09 18:03 | PT.OTN ---
Current Diagnoses Pain in unspecified shoulder (05/09/24) Abnormal posture (05/09/24) Weakness (05/09/24) Physical Therapy Treatment Note PT-OP-A Visit Information Start: 05/03/24 10:09 Freq: Status: Active Protocol: Document 05/09/24 07:34 [facility] (Rec: 05/09/24 12:34 [facility] [id number]) Out-Patient Physical Therapy Visit Information Visit Information Visit Type Treatment Note Visit Note 09/24 Visit Start Time 07:35 Visit Stop Time 08:17 Visit Number 2 Number of PRESSER HAND Visits 0 PT-OP-B Current Condition Start: 05/03/24 10:09 Freq: Status: Active Protocol: Document 05/07/24 07:35 [facility] (Rec: 05/07/24 09:55 [facility] [id number]) Current Condition History of Current Condition Onset Date about 10 years. Current Complaints B shoulder pain History of Current Condition Pt has had L shoulder pain and stiffness that has been going on for about a decade. R shoulde rgives him trouble also but not as bad. Has done PT to L shoulder in past but it didn't work. Probably about 5 years ago but didn't help. Pain was gradual onset. Pt has hx of back pain and R knee pain. Pt reports he does have neck pain when sleeping and gets CANDELARIO. Does have some narrowing in the neck per pt. hx of accident in [place] where shattered his L elbow and had sx in [place] and it was redone here (2012) Treatment Goals Patient/Caregiver Goals improve mobility of shoudlers PT-OP-C Subjective Start: 05/03/24 10:09 Freq: Status: Active Protocol: Document 05/09/24 07:34 [facility] (Rec: 05/09/24 12:34 [facility] [id number]) OP-PT Subjective Patient Comments Patient Comments Pt reports did okay after last session. PT-OP-J Posture/Palpation/Skin Start: 05/03/24 10:09 Freq: Status: Active Protocol: Document 05/07/24 07:35 [facility] (Rec: 05/07/24 09:55 [facility] [id number]) Posture Evaluation Kary Postural Classification System Kary Postural Classifications Posterior/Anterior Elbow Flexion Test 2 Comments Posture Comments B GHJ ant; R scap abd, trunk SB L PT-OP-K Range of Motion Start: 05/03/24 10:09 Freq: Status: Active Protocol: Document 05/07/24 07:35 [facility] (Rec: 05/07/24 09:55 [facility] [id number]) Shoulder Goniometric Range of Motion Shoulder Right Active Flexion 122 Extension 58 Abduction 134 External Rotation at 0 degrees Abduction 40 Internal Rotation Behind Back (text) T12 Comments goes towards scaption w/abd Left Active Flexion 121 Extension 49 Abduction 108 External Rotation at 0 degrees Abduction 39 Internal Rotation Behind Back (text) T11 Comments pain at end ranges w/all L>R PT-OP-L Special Tests Start: 05/03/24 10:09 Freq: Status: Active Protocol: Document 05/07/24 07:35 [facility] (Rec: 05/07/24 09:55 [facility] [id number]) Special Tests Shoulder Special Tests n tension Comments neg all biceps load Comments neg B crank Comments positive L w/IR [place] Test Comments positive B Speed's Biceps Comments neg B Neer Impingement Comments positive B Larsen Paul Impingement Comments positive R Empty Can Comments positive L PT-OP-M Strength Start: 05/03/24 10:09 Freq: Status: Active Protocol: Document 05/07/24 07:35 [facility] (Rec: 05/07/24 09:55 [facility] [id number]) Shoulder Strength Shoulder Manual Muscle Testing R Flexion 4 Good Extension 4 Good Abduction (C5) 4- Good- External Rotation 4- Good- Internal Rotation 4+ Good+ Horizontal Abduction 5 Normal Horizontal Adduction 5 Normal L Flexion 4- Good- Extension 4+ Good+ Abduction (C5) 3+ Fair+ External Rotation 3+ Fair+ Internal Rotation 4 Good Horizontal Abduction 4 Good Horizontal Adduction 4 Good PT-OP-Q Treatments Start: 05/03/24 10:09 Freq: Status: Active Protocol: Document 05/09/24 07:34 [facility] (Rec: 05/09/24 12:34 [facility] [id number]) Gym Equipment Cable Column (Body Solid) Lat Pull Down Details cues scap Resistance 7 Reps/Time 12 Rows Details cues scap Resistance 6 Reps/Time 12 Therapeutic Exercises Supine Exercises foam roll Supine Exercise Name 1. Habd 2. flex Side bilateral Reps/Minutes 10 ea Standing Exercises stretch Standing Exercise Name straight arm pec stretch Side bilateral Reps/Minutes 30 sec Comments stopped d/t pain ER Side bilateral Resistance orange Reps/Minutes 15 Comments cues scap IR Side bilateral Equipment Used orange Reps/Minutes 15 Comments cues scap R>L Manual Therapy Treatment Consent Patient gave verbal consent for manual Yes treatment Soft Tissue Mobilization superior Body Location L UT, LS,s calenes Mobilization Type Rolling Intensity/Depth Moderate Body Position Supine pec Body Location L major/minor Mobilization Type Rolling,Sustained Pressure Intensity/Depth Moderate Body Position Supine Joint Mobilizations GH Grade III Comments supine L post glide, translation, lat gapping, inf glide and distraction FM w/c/r ribs Grade III Body Position Sidelying Comments caudal rib 1 and 2 c/r w/shrug thoracic Body Position Sidelying Comments transverse R T3 FM w/scap movt SC Joint L inf FM w/shrug AC Body Position Sidelying Comments ant clavicle FM w/c/r shrug L PT-OP-T Assessment and Plan Start: 05/03/24 10:09 Freq: Status: Active Protocol: Document 05/09/24 07:34 [facility] (Rec: 05/09/24 12:34 [facility] [id number]) Physical Therapy Assessment Goals activities Short Term Goal (STG) pt will be able to reach across body and put on jackets w/o inc pain. STG Duration 06/15 Drafter Civil Engineering Goal (LTG) Pt will be able to do overhead activities, sleep on side and help as needed w/construction activities w/o inc pain greater than 2/10 LTG Duration 07/16 ROM Short Term Goal (STG) Pt will be able to reach behind his back w/IR to at least T8 to allow greater ease w/washing back. STG Duration 06/15 Drafter Civil Engineering Goal (LTG) Pt will have at least 150 deg flex and abd w/o inc pain B in order to allow greater ease w /overhead activities. LTG Duration 07/16 strength Short Term Goal (STG) Pt will be indep w/HEP STG Duration 06/15 Care Home Goal (LTG) Pt will score at least 4/5 on EFT and at least 4+/5 on all BUE MMT w/o inc pain to allow greater ease w/typical daily activities. LTG Duration 07/16 Assessment Summary Assessment Pt did well with exercises w/ cues for scap positon. He had much improved ROM after manual care Physical Therapy Plan Next Visit Focus/Plan Next Note Type Treatment Note Next Visit Plan review HEP, serratus punch addition & s/l abd; ER manual: work on L>R shoulder: pecs, UT, AC, SC, ty, ribs , GHJ for improved mobility
--- NOTE | 2024-05-14 08:20 | PT.OTN ---
Current Diagnoses Pain in unspecified shoulder (05/14/24) Abnormal posture (05/14/24) Weakness (05/14/24) Physical Therapy Treatment Note PT-OP-A Visit Information Start: 05/03/24 10:09 Freq: Status: Active Protocol: Document 05/14/24 07:32 [facility] (Rec: 05/14/24 08:20 [facility] [id number]) Out-Patient Physical Therapy Visit Information Visit Information Visit Type Treatment Note Visit Note 10/22 Visit Start Time 07:33 Visit Stop Time 08:13 Visit Number 3 Number of TELEPHONE ANSWERER Visits 0 PT-OP-B Current Condition Start: 05/03/24 10:09 Freq: Status: Active Protocol: Document 05/07/24 07:35 [facility] (Rec: 05/07/24 09:55 [facility] [id number]) Current Condition History of Current Condition Onset Date about 10 years. Current Complaints B shoulder pain History of Current Condition Pt has had L shoulder pain and stiffness that has been going on for about a decade. R shoulde rgives him trouble also but not as bad. Has done PT to L shoulder in past but it didn't work. Probably about 5 years ago but didn't help. Pain was gradual onset. Pt has hx of back pain and R knee pain. Pt reports he does have neck pain when sleeping and gets CANDELARIO. Does have some narrowing in the neck per pt. hx of accident in [place] where shattered his L elbow and had sx in [place] and it was redone here (2012) Treatment Goals Patient/Caregiver Goals improve mobility of shoudlers PT-OP-C Subjective Start: 05/03/24 10:09 Freq: Status: Active Protocol: Document 05/14/24 07:32 [facility] (Rec: 05/14/24 08:20 [facility] [id number]) OP-PT Subjective Patient Comments Patient Comments Pt reports feeling like L shoulder sat more relaxed after last session PT-OP-J Posture/Palpation/Skin Start: 05/03/24 10:09 Freq: Status: Active Protocol: Document 05/07/24 07:35 [facility] (Rec: 05/07/24 09:55 [facility] [id number]) Posture Evaluation Kary Postural Classification System Kary Postural Classifications Posterior/Anterior Elbow Flexion Test 2 Comments Posture Comments B GHJ ant; R scap abd, trunk SB L PT-OP-K Range of Motion Start: 05/03/24 10:09 Freq: Status: Active Protocol: Document 05/07/24 07:35 [facility] (Rec: 05/07/24 09:55 [facility] [id number]) Shoulder Goniometric Range of Motion Shoulder Right Active Flexion 122 Extension 58 Abduction 134 External Rotation at 0 degrees Abduction 40 Internal Rotation Behind Back (text) T12 Comments goes towards scaption w/abd Left Active Flexion 121 Extension 49 Abduction 108 External Rotation at 0 degrees Abduction 39 Internal Rotation Behind Back (text) T11 Comments pain at end ranges w/all L>R PT-OP-L Special Tests Start: 05/03/24 10:09 Freq: Status: Active Protocol: Document 05/07/24 07:35 [facility] (Rec: 05/07/24 09:55 [facility] [id number]) Special Tests Shoulder Special Tests n tension Comments neg all biceps load Comments neg B crank Comments positive L w/IR [place] Test Comments positive B Speed's Biceps Comments neg B Neer Impingement Comments positive B Larsen Paul Impingement Comments positive R Empty Can Comments positive L PT-OP-M Strength Start: 05/03/24 10:09 Freq: Status: Active Protocol: Document 05/07/24 07:35 [facility] (Rec: 05/07/24 09:55 [facility] [id number]) Shoulder Strength Shoulder Manual Muscle Testing R Flexion 4 Good Extension 4 Good Abduction (C5) 4- Good- External Rotation 4- Good- Internal Rotation 4+ Good+ Horizontal Abduction 5 Normal Horizontal Adduction 5 Normal L Flexion 4- Good- Extension 4+ Good+ Abduction (C5) 3+ Fair+ External Rotation 3+ Fair+ Internal Rotation 4 Good Horizontal Abduction 4 Good Horizontal Adduction 4 Good PT-OP-Q Treatments Start: 05/03/24 10:09 Freq: Status: Active Protocol: Document 05/14/24 07:32 [facility] (Rec: 05/14/24 08:20 [facility] [id number]) Manual Therapy Treatment Consent Patient gave verbal consent for manual Yes treatment Soft Tissue Mobilization UE Body Location L circumfrential and biceps Mobilization Type Myofascial Release,Rolling Intensity/Depth Moderate Body Position Supine Comments w/ER superior Body Location L UT, LS, scalenes Mobilization Type Rolling Intensity/Depth Moderate Body Position Supine pec Body Location L major/minor Mobilization Type Rolling,Sustained Pressure Intensity/Depth Moderate Body Position Supine Comments w/shoulder rot Joint Mobilizations GH Comments L post, distraction & lat gapping ribs Comments External torsion 6-8 R FM and internal torsion 9-10 FM thoracic Body Position Sitting Comments transverse L T6-8; PA T6-8 w/ ext c/r AC Body Position Sidelying Comments ant clavicle FM w/c/r shrug L PT-OP-T Assessment and Plan Start: 05/03/24 10:09 Freq: Status: Active Protocol: Document 05/14/24 07:32 [facility] (Rec: 05/14/24 08:20 [facility] [id number]) Physical Therapy Assessment Goals activities Short Term Goal (STG) pt will be able to reach across body and put on jackets w/o inc pain. STG Duration 06/15 Lock Assembler Goal (LTG) Pt will be able to do overhead activities, sleep on side and help as needed w/construction activities w/o inc pain greater than 2/10 LTG Duration 07/16 ROM Short Term Goal (STG) Pt will be able to reach behind his back w/IR to at least T8 to allow greater ease w/washing back. STG Duration 06/15 Lock Assembler Goal (LTG) Pt will have at least 150 deg flex and abd w/o inc pain B in order to allow greater ease w /overhead activities. LTG Duration 07/16 strength Short Term Goal (STG) Pt will be indep w/HEP STG Duration 06/15 Residential Goal (LTG) Pt will score at least 4/5 on EFT and at least 4+/5 on all BUE MMT w/o inc pain to allow greater ease w/typical daily activities. LTG Duration 12 Assessment Summary Assessment Pt had improved R scap postion after manual and much improved L abd and flex after manual along w/90/90 ER. Physical Therapy Plan Frequency and Duration Frequency of Treatment 2x/Week Duration of treatment (weeks) 10 Plan of Care Start Date 05/07/24 Plan of Care End Date 07/16/24 Next Visit Focus/Plan Next Note Type Treatment Note Next Visit Plan review HEP, serratus punch addition & s/l abd; 90/90 ER manual: work on L>R shoulder: pecs, UT, AC, SC, tspine, ribs , GHJ for improved mobility
--- NOTE | 2024-05-16 08:21 | PT.OTN ---
Current Diagnoses Pain in unspecified shoulder (05/16/24) Abnormal posture (05/16/24) Weakness (05/16/24) Physical Therapy Treatment Note PT-OP-A Visit Information Start: 05/03/24 10:09 Freq: Status: Active Protocol: Document 05/16/24 07:31 [facility] (Rec: 05/16/24 08:21 [facility] [id number]) Out-Patient Physical Therapy Visit Information Visit Information Visit Type Treatment Note Visit Note 11/22 Visit Start Time 07:34 Visit Stop Time 08:14 Visit Number 4 Number of SERVER ASSISTANT Visits 0 PT-OP-B Current Condition Start: 05/03/24 10:09 Freq: Status: Active Protocol: Document 05/07/24 07:35 [facility] (Rec: 05/07/24 09:55 [facility] [id number]) Current Condition History of Current Condition Onset Date about 10 years. Current Complaints B shoulder pain History of Current Condition Pt has had L shoulder pain and stiffness that has been going on for about a decade. R shoulde rgives him trouble also but not as bad. Has done PT to L shoulder in past but it didn't work. Probably about 5 years ago but didn't help. Pain was gradual onset. Pt has hx of back pain and R knee pain. Pt reports he does have neck pain when sleeping and gets CANDELARIO. Does have some narrowing in the neck per pt. hx of accident in [place] where shattered his L elbow and had sx in [place] and it was redone here (2012) Treatment Goals Patient/Caregiver Goals improve mobility of shoudlers PT-OP-C Subjective Start: 05/03/24 10:09 Freq: Status: Active Protocol: Document 05/16/24 07:31 [facility] (Rec: 05/16/24 08:21 [facility] [id number]) OP-PT Subjective Patient Comments Patient Comments Last 2 nights hasn't had CANDELARIO sleeping PT-OP-J Posture/Palpation/Skin Start: 05/03/24 10:09 Freq: Status: Active Protocol: Document 05/07/24 07:35 [facility] (Rec: 05/07/24 09:55 [facility] [id number]) Posture Evaluation Kary Postural Classification System Kary Postural Classifications Posterior/Anterior Elbow Flexion Test 2 Comments Posture Comments B GHJ ant; R scap abd, trunk SB L PT-OP-K Range of Motion Start: 05/03/24 10:09 Freq: Status: Active Protocol: Document 05/07/24 07:35 [facility] (Rec: 05/07/24 09:55 [facility] [id number]) Shoulder Goniometric Range of Motion Shoulder Right Active Flexion 122 Extension 58 Abduction 134 External Rotation at 0 degrees Abduction 40 Internal Rotation Behind Back (text) T12 Comments goes towards scaption w/abd Left Active Flexion 121 Extension 49 Abduction 108 External Rotation at 0 degrees Abduction 39 Internal Rotation Behind Back (text) T11 Comments pain at end ranges w/all L>R PT-OP-L Special Tests Start: 05/03/24 10:09 Freq: Status: Active Protocol: Document 05/07/24 07:35 [facility] (Rec: 05/07/24 09:55 [facility] [id number]) Special Tests Shoulder Special Tests n tension Comments neg all biceps load Comments neg B crank Comments positive L w/IR [place] Test Comments positive B Speed's Biceps Comments neg B Neer Impingement Comments positive B Larsen Paul Impingement Comments positive R Empty Can Comments positive L PT-OP-M Strength Start: 05/03/24 10:09 Freq: Status: Active Protocol: Document 05/07/24 07:35 [facility] (Rec: 05/07/24 09:55 [facility] [id number]) Shoulder Strength Shoulder Manual Muscle Testing R Flexion 4 Good Extension 4 Good Abduction (C5) 4- Good- External Rotation 4- Good- Internal Rotation 4+ Good+ Horizontal Abduction 5 Normal Horizontal Adduction 5 Normal L Flexion 4- Good- Extension 4+ Good+ Abduction (C5) 3+ Fair+ External Rotation 3+ Fair+ Internal Rotation 4 Good Horizontal Abduction 4 Good Horizontal Adduction 4 Good PT-OP-Q Treatments Start: 05/03/24 10:09 Freq: Status: Active Protocol: Document 05/16/24 07:31 [facility] (Rec: 05/16/24 08:21 [facility] [id number]) Therapeutic Exercises Supine Exercises foam roll Supine Exercise Name 1. Habd 2. flex 3. tspine ext over Side bilateral Reps/Minutes 10 ea Sitting Exercises pulleys Sitting Exercise Name 1. flex 2. scaption 3. abd Side bilateral Reps/Minutes 10 ea Standing Exercises stretch Standing Exercise Name counter stretch Side bilateral Reps/Minutes 30sec Manual Therapy Treatment Consent Patient gave verbal consent for manual Yes treatment Soft Tissue Mobilization inferior Body Location teres/lats Mobilization Type Rolling Intensity/Depth Moderate Body Position Supine Comments w/flex (plunger and manual) pec Body Location R major/minor Mobilization Type Rolling,Sustained Pressure Intensity/Depth Moderate Body Position Supine Comments w/shoulder rot Joint Mobilizations GH Comments R post and distraction ribs Comments external torsion rib 3, 6 and 7 FM w/rot SC Comments Inf SC R w/shrug PT-OP-T Assessment and Plan Start: 05/03/24 10:09 Freq: Status: Active Protocol: Document 05/16/24 07:31 [facility] (Rec: 05/16/24 08:21 [facility] [id number]) Physical Therapy Assessment Goals activities Short Term Goal (STG) pt will be able to reach across body and put on jackets w/o inc pain. STG Duration 06/15 Alf Goal (LTG) Pt will be able to do overhead activities, sleep on side and help as needed w/construction activities w/o inc pain greater than 2/10 LTG Duration 12 ROM Short Term Goal (STG) Pt will be able to reach behind his back w/IR to at least T8 to allow greater ease w/washing back. STG Duration 06/15 Cable Splicing Technician Goal (LTG) Pt will have at least 150 deg flex and abd w/o inc pain B in order to allow greater ease w /overhead activities. LTG Duration 07/16 strength Short Term Goal (STG) Pt will be indep w/HEP STG Duration 06/15 Cable Splicing Technician Goal (LTG) Pt will score at least 4/5 on EFT and at least 4+/5 on all BUE MMT w/o inc pain to allow greater ease w/typical daily activities. LTG Duration 12 Assessment Summary Assessment Pt did well with exercises w/o inc pain. Allowed greater overhead motion w/doris exercises and manual. Physical Therapy Plan Frequency and Duration Frequency of Treatment 2x/Week Duration of treatment (weeks) 10 Plan of Care Start Date 05/07/24 Plan of Care End Date 07/16/24 Next Visit Focus/Plan Next Note Type Treatment Note Next Visit Plan review exercises; manual for improved ROM
--- NOTE | 2024-05-21 08:58 | PT.OTN ---
Current Diagnoses Pain in unspecified shoulder (05/21/24) Abnormal posture (05/21/24) Weakness (05/21/24) Physical Therapy Treatment Note PT-OP-A Visit Information Start: 05/03/24 10:09 Freq: Status: Active Protocol: Document 05/21/24 07:33 [facility] (Rec: 05/21/24 08:58 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 (Rec: 05/07/24 09:55 [facility] [id number]) Current Condition History of Current Condition Onset Date about 10 years. Current Complaints B shoulder pain History of Current Condition Pt has had L shoulder pain and stiffness that has been going on for about a decade. R shoulde rgives him trouble also but not as bad. Has done PT to L shoulder in past but it didn't work. Probably about 5 years ago but didn't help. Pain was gradual onset. Pt has hx of back pain and R knee pain. Pt reports he does have neck pain when sleeping and gets CANDELARIO. Does have some narrowing in the neck per pt. hx of accident in [place] where shattered his L elbow and had sx in [place] and it was redone here (2012) Treatment Goals Patient/Caregiver Goals improve mobility of shoudlers PT-OP-C Subjective Start: 05/03/24 10:09 Freq: Status: Active Protocol: Document 05/21/24 07:33 [facility] (Rec: 05/21/24 08:58 [facility] [id number]) OP-PT Subjective Patient Comments Patient Comments pt reports has had some tension in post head at night when laying on side. wondering if related. Got pulleys and foam roll PT-OP-J Posture/Palpation/Skin Start: 05/03/24 10:09 Freq: Status: Active Protocol: Document 05/07/24 07:35 [facility] (Rec: 05/07/24 09:55 [facility] [id number]) Posture Evaluation Kary Postural Classification System Kary Postural Classifications Posterior/Anterior Elbow Flexion Test 2 Comments Posture Comments B GHJ ant; R scap abd, trunk SB L PT-OP-K Range of Motion Start: 05/03/24 10:09 Freq: Status: Active Protocol: Document 05/07/24 07:35 [facility] (Rec: 05/07/24 09:55 [facility] [id number]) Shoulder Goniometric Range of Motion Shoulder Right Active Flexion 122 Extension 58 Abduction 134 External Rotation at 0 degrees Abduction 40 Internal Rotation Behind Back (text) T12 Comments goes towards scaption w/abd Left Active Flexion 121 Extension 49 Abduction 108 External Rotation at 0 degrees Abduction 39 Internal Rotation Behind Back (text) T11 Comments pain at end ranges w/all L>R PT-OP-L Special Tests Start: 05/03/24 10:09 Freq: Status: Active Protocol: Document 05/07/24 07:35 [facility] (Rec: 05/07/24 09:55 [facility] [id number]) Special Tests Shoulder Special Tests n tension Comments neg all biceps load Comments neg B crank Comments positive L w/IR [place] Test Comments positive B Speed's Biceps Comments neg B Neer Impingement Comments positive B Larsen Paul Impingement Comments positive R Empty Can Comments positive L PT-OP-M Strength Start: 05/03/24 10:09 Freq: Status: Active Protocol: Document 05/07/24 07:35 [facility] (Rec: 05/07/24 09:55 [facility] [id number]) Shoulder Strength Shoulder Manual Muscle Testing R Flexion 4 Good Extension 4 Good Abduction (C5) 4- Good- External Rotation 4- Good- Internal Rotation 4+ Good+ Horizontal Abduction 5 Normal Horizontal Adduction 5 Normal L Flexion 4- Good- Extension 4+ Good+ Abduction (C5) 3+ Fair+ External Rotation 3+ Fair+ Internal Rotation 4 Good Horizontal Abduction 4 Good Horizontal Adduction 4 Good PT-OP-Q Treatments Start: 05/03/24 10:09 Freq: Status: Active Protocol: Document 05/21/24 07:33 [facility] (Rec: 05/21/24 08:58 [facility] [id number]) Therapeutic Exercises Supine Exercises foam roll Supine Exercise Name tspine ext over roll Reps/Minutes 2 min Sitting Exercises 1st rib Sitting Exercise Name caudal w/cervical SB Side right Equipment Used towel Reps/Minutes 10 chin tuck Equipment Used lvl 2 Reps/Minutes 15 Manual Therapy Treatment Consent Patient gave verbal consent for manual Yes treatment Soft Tissue Mobilization superior Body Location R>L UT, LS, scalenes, SCM, SO Mobilization Type Rolling Intensity/Depth Moderate Body Position Supine pec Body Location R major/minor Mobilization Type Rolling,Sustained Pressure Intensity/Depth Moderate Body Position Supine Comments w/shoulder rot Joint Mobilizations GH Comments R post and distraction & lat gapping & inf glide ribs Comments PA rib 1 and 2 and caudal 1 and 2 FM PT-OP-T Assessment and Plan Start: 05/03/24 10:09 Freq: Status: Active Protocol: Document 05/21/24 07:33 [facility] (Rec: 05/21/24 08:58 [facility] [id number]) Physical Therapy Assessment Goals activities Short Term Goal (STG) pt will be able to reach across body and put on jackets w/o inc pain. STG Duration 06/15 Car Ferrier Goal (LTG) Pt will be able to do overhead activities, sleep on side and help as needed w/construction activities w/o inc pain greater than 2/10 LTG Duration 07/16 ROM Short Term Goal (STG) Pt will be able to reach behind his back w/IR to at least T8 to allow greater ease w/washing back. STG Duration 06/15 Intermediate Goal (LTG) Pt will have at least 150 deg flex and abd w/o inc pain B in order to allow greater ease w /overhead activities. LTG Duration 07/16 strength Short Term Goal (STG) Pt will be indep w/HEP STG Duration 06/15 Intermediate Goal (LTG) Pt will score at least 4/5 on EFT and at least 4+/5 on all BUE MMT w/o inc pain to allow greater ease w/typical daily activities. LTG Duration 12 Assessment Summary Assessment Pt had improved ER MMT R after cervical stability facilitaiton. He had improved R shoulder ROM after manual but does note pain in R>L Physical Therapy Plan Frequency and Duration Frequency of Treatment 2x/Week Duration of treatment (weeks) 10 Plan of Care Start Date 05/07/24 Plan of Care End Date 07/16/24 Next Visit Focus/Plan Next Note Type Treatment Note Next Visit Plan review exercises as needed, add open book, wall posture; manual for improved ROM
--- NOTE | 2024-05-23 08:20 | PT.OTN ---
Current Diagnoses Pain in unspecified shoulder (05/23/24) Abnormal posture (05/23/24) Weakness (05/23/24) Physical Therapy Treatment Note PT-OP-A Visit Information Start: 05/03/24 10:09 Freq: Status: Active Protocol: Document 05/23/24 07:32 [facility] (Rec: 05/23/24 08:20 [facility] [id number]) Out-Patient Physical Therapy Visit Information Visit Information Visit Type Treatment Note Visit Note 01/22 Visit Start Time 07:31 Visit Stop Time 08:11 Visit Number [address] SERVICE Visits 0 PT-OP-B Current Condition Start: 05/03/24 10:09 Freq: Status: Active Protocol: Document 05/07/24 07:35 [facility] (Rec: 05/07/24 09:55 [facility] [id number]) Current Condition History of Current Condition Onset Date about 10 years. Current Complaints B shoulder pain History of Current Condition Pt has had L shoulder pain and stiffness that has been going on for about a decade. R shoulde rgives him trouble also but not as bad. Has done PT to L shoulder in past but it didn't work. Probably about 5 years ago but didn't help. Pain was gradual onset. Pt has hx of back pain and R knee pain. Pt reports he does have neck pain when sleeping and gets CANDELARIO. Does have some narrowing in the neck per pt. hx of accident in [place] where shattered his L elbow and had sx in [place] and it was redone here (2012) Treatment Goals Patient/Caregiver Goals improve mobility of shoudlers PT-OP-C Subjective Start: 05/03/24 10:09 Freq: Status: Active Protocol: Document 05/23/24 07:32 [facility] (Rec: 05/23/24 08:20 [facility] [id number]) OP-PT Subjective Patient Comments Patient Comments Pt reports felt good after last session. He did have a CANDELARIO again last session PT-OP-J Posture/Palpation/Skin Start: 05/03/24 10:09 Freq: Status: Active Protocol: Document 05/07/24 07:35 [facility] (Rec: 05/07/24 09:55 [facility] [id number]) Posture Evaluation Kary Postural Classification System Kary Postural Classifications Posterior/Anterior Elbow Flexion Test 2 Comments Posture Comments B GHJ ant; R scap abd, trunk SB L PT-OP-K Range of Motion Start: 05/03/24 10:09 Freq: Status: Active Protocol: Document 05/07/24 07:35 [facility] (Rec: 05/07/24 09:55 [facility] [id number]) Shoulder Goniometric Range of Motion Shoulder Right Active Flexion 122 Extension 58 Abduction 134 External Rotation at 0 degrees Abduction 40 Internal Rotation Behind Back (text) T12 Comments goes towards scaption w/abd Left Active Flexion 121 Extension 49 Abduction 108 External Rotation at 0 degrees Abduction 39 Internal Rotation Behind Back (text) T11 Comments pain at end ranges w/all L>R PT-OP-L Special Tests Start: 05/03/24 10:09 Freq: Status: Active Protocol: Document 05/07/24 07:35 [facility] (Rec: 05/07/24 09:55 [facility] [id number]) Special Tests Shoulder Special Tests n tension Comments neg all biceps load Comments neg B crank Comments positive L w/IR [place] Test Comments positive B Speed's Biceps Comments neg B Neer Impingement Comments positive B Larsen Paul Impingement Comments positive R Empty Can Comments positive L PT-OP-M Strength Start: 05/03/24 10:09 Freq: Status: Active Protocol: Document 05/07/24 07:35 [facility] (Rec: 05/07/24 09:55 [facility] [id number]) Shoulder Strength Shoulder Manual Muscle Testing R Flexion 4 Good Extension 4 Good Abduction (C5) 4- Good- External Rotation 4- Good- Internal Rotation 4+ Good+ Horizontal Abduction 5 Normal Horizontal Adduction 5 Normal L Flexion 4- Good- Extension 4+ Good+ Abduction (C5) 3+ Fair+ External Rotation 3+ Fair+ Internal Rotation 4 Good Horizontal Abduction 4 Good Horizontal Adduction 4 Good PT-OP-Q Treatments Start: 05/03/24 10:09 Freq: Status: Active Protocol: Document 05/23/24 07:32 [facility] (Rec: 05/23/24 08:20 [facility] [id number]) Therapeutic Exercises Sidelying Exercises open book Side bilateral Reps/Minutes 8 Comments min cues needed Sitting Exercises 1st rib Sitting Exercise Name caudal w/cervical SB Side right Equipment Used towel Reps/Minutes 10 chin tuck Equipment Used lvl 2 Reps/Minutes 15 Standing Exercises wall posture Standing Exercise Name roll up w/arm ext /ER Side bilateral Reps/Minutes 1 min hold Manual Therapy Treatment Consent Patient gave verbal consent for manual Yes treatment Soft Tissue Mobilization superior Body Location R>L UT, LS, scalenes, SCM, SO Mobilization Type Rolling Intensity/Depth Moderate Body Position Supine pec Body Location R major/minor Mobilization Type Rolling,Sustained Pressure Intensity/Depth Moderate Body Position Supine Comments w/shoulder rot Joint Mobilizations ribs Comments caudal rib 1 FM; external torsion R rib 6; SB R right ribs 5, 8 thoracic Comments PA T1-3 and transverse R T2-3 and L T1 PT-OP-T Assessment and Plan Start: 05/03/24 10:09 Freq: Status: Active Protocol: Document 05/23/24 07:32 [facility] (Rec: 05/23/24 08:20 [facility] [id number]) Physical Therapy Assessment Goals activities Short Term Goal (STG) pt will be able to reach across body and put on jackets w/o inc pain. STG Duration 06/15 Half-Way Goal (LTG) Pt will be able to do overhead activities, sleep on side and help as needed w/construction activities w/o inc pain greater than 2/10 LTG Duration 07/16 ROM Short Term Goal (STG) Pt will be able to reach behind his back w/IR to at least T8 to allow greater ease w/washing back. STG Duration 06/15 Half-Way Goal (LTG) Pt will have at least 150 deg flex and abd w/o inc pain B in order to allow greater ease w /overhead activities. LTG Duration 07/16 strength Short Term Goal (STG) Pt will be indep w/HEP STG Duration 06/15 Half-Way Goal (LTG) Pt will score at least 4/5 on EFT and at least 4+/5 on all BUE MMT w/o inc pain to allow greater ease w/typical daily activities. LTG Duration 12 Assessment Summary Assessment Pt had improved R shoulder ROM after manual treatment. He had improved form with exercises but did need cues w/ 1st rib mob Physical Therapy Plan Frequency and Duration Frequency of Treatment 2x/Week Duration of treatment (weeks) 10 Plan of Care Start Date 05/07/24 Plan of Care End Date 07/16/24 Next Visit Focus/Plan Next Note Type Treatment Note Next Visit Plan review wall posture, manual for improved ROM
--- NOTE | 2024-05-28 08:18 | PT.OTN ---
Current Diagnoses Pain in unspecified shoulder (05/28/24) Abnormal posture (05/28/24) Weakness (05/28/24) Physical Therapy Treatment Note PT-OP-A Visit Information Start: 05/03/24 10:09 Freq: Status: Active Protocol: Document 05/28/24 07:32 [facility] (Rec: 05/28/24 08:18 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 (Rec: 05/07/24 09:55 [facility] [id number]) Current Condition History of Current Condition Onset Date about 10 years. Current Complaints B shoulder pain History of Current Condition Pt has had L shoulder pain and stiffness that has been going on for about a decade. R shoulde rgives him trouble also but not as bad. Has done PT to L shoulder in past but it didn't work. Probably about 5 years ago but didn't help. Pain was gradual onset. Pt has hx of back pain and R knee pain. Pt reports he does have neck pain when sleeping and gets CANDELARIO. Does have some narrowing in the neck per pt. hx of accident in [place] where shattered his L elbow and had sx in [place] and it was redone here (2012) Treatment Goals Patient/Caregiver Goals improve mobility of shoudlers PT-OP-C Subjective Start: 05/03/24 10:09 Freq: Status: Active Protocol: Document 05/28/24 07:32 [facility] (Rec: 05/28/24 08:18 [facility] [id number]) OP-PT Subjective Patient Comments Patient Comments Pt reports neck still bothers him at night. Can do the band at night for neck and that helps. Still feels pinching when reaching out to the side. Hasn't been able to work out since friend w/gym has covid. Patient Reported Progress Improving PT-OP-J Posture/Palpation/Skin Start: 05/03/24 10:09 Freq: Status: Active Protocol: Document 05/07/24 07:35 [facility] (Rec: 05/07/24 09:55 [facility] [id number]) Posture Evaluation [facility] Postural Classification System [facility] Postural Classifications Posterior/Anterior Elbow Flexion Test 2 Comments Posture Comments B GHJ ant; R scap abd, trunk SB L PT-OP-K Range of Motion Start: 05/03/24 10:09 Freq: Status: Active Protocol: Document 05/07/24 07:35 [facility] (Rec: 05/07/24 09:55 [facility] [id number]) Shoulder Goniometric Range of Motion Shoulder Right Active Flexion 122 Extension 58 Abduction 134 External Rotation at 0 degrees Abduction 40 Internal Rotation Behind Back (text) T12 Comments goes towards scaption w/abd Left Active Flexion 121 Extension 49 Abduction 108 External Rotation at 0 degrees Abduction 39 Internal Rotation Behind Back (text) T11 Comments pain at end ranges w/all L>R PT-OP-L Special Tests Start: 05/03/24 10:09 Freq: Status: Active Protocol: Document 05/07/24 07:35 [facility] (Rec: 05/07/24 09:55 [facility] [id number]) Special Tests Shoulder Special Tests n tension Comments neg all biceps load Comments neg B crank Comments positive L w/IR [place] Test Comments positive B Speed's Biceps Comments neg B Neer Impingement Comments positive B Larsen Paul Impingement Comments positive R Empty Can Comments positive L PT-OP-M Strength Start: 05/03/24 10:09 Freq: Status: Active Protocol: Document 05/07/24 07:35 [facility] (Rec: 05/07/24 09:55 [facility] [id number]) Shoulder Strength Shoulder Manual Muscle Testing R Flexion 4 Good Extension 4 Good Abduction (C5) 4- Good- External Rotation 4- Good- Internal Rotation 4+ Good+ Horizontal Abduction 5 Normal Horizontal Adduction 5 Normal L Flexion 4- Good- Extension 4+ Good+ Abduction (C5) 3+ Fair+ External Rotation 3+ Fair+ Internal Rotation 4 Good Horizontal Abduction 4 Good Horizontal Adduction 4 Good PT-OP-Q Treatments Start: 05/03/24 10:09 Freq: Status: Active Protocol: Document 05/28/24 07:32 [facility] (Rec: 05/28/24 08:18 [facility] [id number]) Therapeutic Exercises Sidelying Exercises sleeper stretch Side bilateral Reps/Minutes 30 sec abd Sidelying Exercise Name 1. abd (R w/3#, L AAROM for scap and UE) 2. rhythmic stabilization at 90deg Side bilateral Reps/Minutes 1. 10 ea 2. 30 sec ea Standing Exercises stretch Standing Exercise Name ER at about 60 deg abd pec stretch Side bilateral Reps/Minutes 30 sec Manual Therapy Treatment Consent Patient gave verbal consent for manual Yes treatment Soft Tissue Mobilization UE Body Location L circumfrential and biceps Mobilization Type Myofascial Release,Rolling Intensity/Depth Moderate Body Position Supine Comments w/ER/IR superior Body Location L scalenes, SCM, UT Mobilization Type Rolling Intensity/Depth Moderate Body Position Supine pec Body Location L major/minor Mobilization Type Rolling,Sustained Pressure Intensity/Depth Moderate Body Position Supine Comments w/shoulder rot Joint Mobilizations GH Comments L post, ant, inf glides ribs Comments caudal 1st L s/l FM AC Comments post L scap PT-OP-T Assessment and Plan Start: 05/03/24 10:09 Freq: Status: Active Protocol: Document 05/28/24 07:32 [facility] (Rec: 05/28/24 08:18 [facility] [id number]) Physical Therapy Assessment Goals activities Short Term Goal (STG) pt will be able to reach across body and put on jackets w/o inc pain. STG Duration 06/15 Long-Term Goal (LTG) Pt will be able to do overhead activities, sleep on side and help as needed w/construction activities w/o inc pain greater than 2/10 LTG Duration 07/16 ROM Short Term Goal (STG) Pt will be able to reach behind his back w/IR to at least T8 to allow greater ease w/washing back. STG Duration 06/15 Tunnel Mucker Goal (LTG) Pt will have at least 150 deg flex and abd w/o inc pain B in order to allow greater ease w /overhead activities. LTG Duration 07/16 strength Short Term Goal (STG) Pt will be indep w/HEP STG Duration 06/15 Tunnel Mucker Goal (LTG) Pt will score at least 4/5 on EFT and at least 4+/5 on all BUE MMT w/o inc pain to allow greater ease w/typical daily activities. LTG Duration 07/16 Assessment Summary Assessment Pt did well with stretches, cues needed for set up. Difficulty w/form w/L s/l abd. Improved abd, IR and ER after manual. Physical Therapy Plan Frequency and Duration Frequency of Treatment 2x/Week Duration of treatment (weeks) 10 Plan of Care Start Date 05/07/24 Plan of Care End Date 07/16/24 Next Visit Focus/Plan Next Note Type Treatment Note Next Visit Plan review wall posture, manual for improved ROM
--- NOTE | 2024-05-30 08:19 | PT.OTN ---
Current Diagnoses Pain in unspecified shoulder (05/30/24) Abnormal posture (05/30/24) Weakness (05/30/24) Physical Therapy Treatment Note PT-OP-A Visit Information Start: 05/03/24 10:09 Freq: Status: Active Protocol: Document 05/30/24 07:31 [facility] (Rec: 05/30/24 08:19 [facility] [id number]) Out-Patient Physical Therapy Visit Information Visit Information Visit Type Progress Note Visit Note 08/24 Visit Start Time 07:31 Visit Stop Time 08:11 Visit Number 8 Number of CHIMNEY BUILDER HELPER Visits 0 PT-OP-B Current Condition Start: 05/03/24 10:09 Freq: Status: Active Protocol: Document 05/07/24 07:35 [facility] (Rec: 05/07/24 09:55 [facility] [id number]) Current Condition History of Current Condition Onset Date about 10 years. Current Complaints B shoulder pain History of Current Condition Pt has had L shoulder pain and stiffness that has been going on for about a decade. R shoulde rgives him trouble also but not as bad. Has done PT to L shoulder in past but it didn't work. Probably about 5 years ago but didn't help. Pain was gradual onset. Pt has hx of back pain and R knee pain. Pt reports he does have neck pain when sleeping and gets CANDELARIO. Does have some narrowing in the neck per pt. hx of accident in [place] where shattered his L elbow and had sx in [place] and it was redone here (2012) Treatment Goals Patient/Caregiver Goals improve mobility of shoudlers PT-OP-C Subjective Start: 05/03/24 10:09 Freq: Status: Active Protocol: Document 05/30/24 07:31 [facility] (Rec: 05/30/24 08:19 [facility] [id number]) OP-PT Subjective Patient Comments Patient Comments Pt reports ROM feels better but pain still present in L especially PT-OP-J Posture/Palpation/Skin Start: 05/03/24 10:09 Freq: Status: Active Protocol: Document 05/07/24 07:35 [facility] (Rec: 05/07/24 09:55 [facility] [id number]) Posture Evaluation Kary Postural Classification System Kary Postural Classifications Posterior/Anterior Elbow Flexion Test 2 Comments Posture Comments B GHJ ant; R scap abd, trunk SB L PT-OP-K Range of Motion Start: 05/03/24 10:09 Freq: Status: Active Protocol: Document 05/30/24 07:31 [facility] (Rec: 05/30/24 08:19 [facility] [id number]) Shoulder Goniometric Range of Motion Shoulder Right Active Flexion 128 Extension 62 Abduction 149 External Rotation at 0 degrees Abduction 50 Internal Rotation Behind Back (text) T10 Comments goes towards scaption w/abd Left Active Flexion 146 Extension 56 Abduction 144 External Rotation at 0 degrees Abduction 56 Internal Rotation Behind Back (text) T9 Comments pain at end ranges w/all L>R PT-OP-L Special Tests Start: 05/03/24 10:09 Freq: Status: Active Protocol: Document 05/07/24 07:35 [facility] (Rec: 05/07/24 09:55 [facility] [id number]) Special Tests Shoulder Special Tests n tension Comments neg all biceps load Comments neg B crank Comments positive L w/IR [place] Test Comments positive B Speed's Biceps Comments neg B Neer Impingement Comments positive B [place] Impingement Comments positive R Empty Can Comments positive L PT-OP-M Strength Start: 05/03/24 10:09 Freq: Status: Active Protocol: Document 05/30/24 07:31 [facility] (Rec: 05/30/24 08:19 [facility] [id number]) Shoulder Strength Shoulder Manual Muscle Testing R Flexion 4+ Good+ Extension 5 Normal Abduction (C5) 4+ Good+ External Rotation 4- Good- Internal Rotation 5 Normal Horizontal Abduction 5 Normal Horizontal Adduction 5 Normal L Flexion 4 Good Extension 5 Normal Abduction (C5) 4 Good External Rotation 4- Good- Internal Rotation 5 Normal Horizontal Abduction 4 Good Horizontal Adduction 4+ Good+ PT-OP-Q Treatments Start: 05/03/24 10:09 Freq: Status: Active Protocol: Document 05/30/24 07:31 [facility] (Rec: 05/30/24 08:19 [facility] [id number]) Therapeutic Exercises Standing Exercises wall posture Standing Exercise Name roll up w/arm ext /ER Side bilateral Reps/Minutes 1 min hold ER Side bilateral Resistance orange Reps/Minutes 15 Comments cues scap Other Exercises AROM Other Exercise Name shoulder AROM Side bilateral isometrics Other Exercise Name B UE MMT, EFT Side bilateral Manual Therapy Treatment Consent Patient gave verbal consent for manual Yes treatment Soft Tissue Mobilization superior Body Location L scalenes, SCM, UT Mobilization Type Rolling Intensity/Depth Moderate Body Position Supine pec Body Location L major/minor & biceps Mobilization Type Rolling,Sustained Pressure Intensity/Depth Moderate Body Position Supine Comments w/med n glide Joint Mobilizations thoracic Comments T1 and 2 PA c/r seated SC Comments L inf c/r AC Comments post L scap PT-OP-T Assessment and Plan Start: 05/03/24 10:09 Freq: Status: Active Protocol: Document 05/30/24 07:31 [facility] (Rec: 05/30/24 08:19 [facility] [id number]) Physical Therapy Assessment Goals activities Short Term Goal (STG) pt will be able to reach across body and put on jackets w/o inc pain. 05/30-L still hurts w/jackets but feels easier w/ROM, across body isn't too bad STG Duration 06/15 Service Specialist Goal (LTG) Pt will be able to do overhead activities, sleep on side and help as needed w/construction activities w/o inc pain greater than 2/10 05/30-neck bothers at night, soreness w/sleep on side LTG Duration 07/16 ROM Short Term Goal (STG) Pt will be able to reach behind his back w/IR to at least T8 to allow greater ease w/washing back. 05/30-improved STG Duration 06/15 Jail Goal (LTG) Pt will have at least 150 deg flex and abd w/o inc pain B in order to allow greater ease w /overhead activities. 05/30-improved LTG Duration 07/16 strength Short Term Goal (STG) Pt will be indep w/HEP STG Duration achieved advancing as able Service Specialist Goal (LTG) Pt will score at least 4/5 on EFT and at least 4+/5 on all BUE MMT w/o inc pain to allow greater ease w/typical daily activities. 05/30-improved; EFT 3/5 LTG Duration 07/16 Assessment Summary Assessment Pt making excellent progress w /PT and is improving w/ strength and ROM but is still noting L shoudler>R pain. Cont PT to help improve this Physical Therapy Plan Frequency and Duration Frequency of Treatment 2x/Week Duration of treatment (weeks) 10 Plan of Care Start Date 05/07/24 Plan of Care End Date 07/16/24 Next Visit Focus/Plan Next Note Type Treatment Note Next Visit Plan work on abd strength and mobility, manual for dec pain and ROM
--- NOTE | 2024-06-05 12:27 | PT.OTN ---
Current Diagnoses Pain in unspecified shoulder (06/05/24) Abnormal posture (06/05/24) Weakness (06/05/24) Physical Therapy Treatment Note PT-OP-A Visit Information Start: 05/03/24 10:09 Freq: Status: Active Protocol: Document 06/05/24 08:10 [facility] (Rec: 06/05/24 12:26 [facility] [id number]) Out-Patient Physical Therapy Visit Information Visit Information Visit Type Treatment Note Visit Note 09/24 Access Code: [email or web address] Visit Start Time 08:16 Visit Stop Time 09:03 Visit Number 9 Number of GAME AGENT Visits 1 PT-OP-B Current Condition Start: 05/03/24 10:09 Freq: Status: Active Protocol: Document 05/07/24 07:35 [facility] (Rec: 05/07/24 09:55 [facility] [id number]) Current Condition History of Current Condition Onset Date about 10 years. Current Complaints B shoulder pain History of Current Condition Pt has had L shoulder pain and stiffness that has been going on for about a decade. R shoulde rgives him trouble also but not as bad. Has done PT to L shoulder in past but it didn't work. Probably about 5 years ago but didn't help. Pain was gradual onset. Pt has hx of back pain and R knee pain. Pt reports he does have neck pain when sleeping and gets CANDELARIO. Does have some narrowing in the neck per pt. hx of accident in [place] where shattered his L elbow and had sx in [place] and it was redone here (2012) Treatment Goals Patient/Caregiver Goals improve mobility of shoudlers PT-OP-C Subjective Start: 05/03/24 10:09 Freq: Status: Active Protocol: Document 06/05/24 08:10 [facility] (Rec: 06/05/24 12:26 [facility] [id number]) OP-PT Subjective Patient Comments Patient Comments Ochoa reports flexibility is better, both shoulders are painful. AROM abd 124 deg moves into scaption pattern. PT-OP-J Posture/Palpation/Skin Start: 05/03/24 10:09 Freq: Status: Active Protocol: Document 05/07/24 07:35 [facility] (Rec: 05/07/24 09:55 [facility] [id number]) Posture Evaluation Kary Postural Classification System Kary Postural Classifications Posterior/Anterior Elbow Flexion Test 2 Comments Posture Comments B GHJ ant; R scap abd, trunk SB L PT-OP-K Range of Motion Start: 05/03/24 10:09 Freq: Status: Active Protocol: Document 05/30/24 07:31 [facility] (Rec: 05/30/24 08:19 [facility] [id number]) Shoulder Goniometric Range of Motion Shoulder Right Active Flexion 128 Extension 62 Abduction 149 External Rotation at 0 degrees Abduction 50 Internal Rotation Behind Back (text) T10 Comments goes towards scaption w/abd Left Active Flexion 146 Extension 56 Abduction 144 External Rotation at 0 degrees Abduction 56 Internal Rotation Behind Back (text) T9 Comments pain at end ranges w/all L>R PT-OP-L Special Tests Start: 05/03/24 10:09 Freq: Status: Active Protocol: Document 05/07/24 07:35 [facility] (Rec: 05/07/24 09:55 [facility] [id number]) Special Tests Shoulder Special Tests n tension Comments neg all biceps load Comments neg B crank Comments positive L w/IR [place] Test Comments positive B Speed's Biceps Comments neg B Neer Impingement Comments positive B Larsen [place] Impingement Comments positive R Empty Can Comments positive L PT-OP-M Strength Start: 05/03/24 10:09 Freq: Status: Active Protocol: Document 05/30/24 07:31 [facility] (Rec: 05/30/24 08:19 [facility] [id number]) Shoulder Strength Shoulder Manual Muscle Testing R Flexion 4+ Good+ Extension 5 Normal Abduction (C5) 4+ Good+ External Rotation 4- Good- Internal Rotation 5 Normal Horizontal Abduction 5 Normal Horizontal Adduction 5 Normal L Flexion 4 Good Extension 5 Normal Abduction (C5) 4 Good External Rotation 4- Good- Internal Rotation 5 Normal Horizontal Abduction 4 Good Horizontal Adduction 4+ Good+ PT-OP-Q Treatments Start: 05/03/24 10:09 Freq: Status: Active Protocol: Document 06/05/24 08:10 [facility] (Rec: 06/05/24 12:26 [facility] [id number]) Therapeutic Exercises Supine Exercises mini band Supine Exercise Name HEP Side bilateral Resistance level one band Reps/Minutes X10 Comments verbal cues Sidelying Exercises abd Sidelying Exercise Name 1. AROM Side bilateral Reps/Minutes X3 left then X10 post mini band X10 right with fac at scap Comments left limited by pain lowering end ROM open book Side bilateral Reps/Minutes X5 Comments verbal cues to hold for 5 breaths Sitting Exercises short sit to upright Sitting Exercise Name verbal cues, monitored for pain Side bilateral Reps/Minutes X10 Standing Exercises rhythmic oscillation Standing Exercise Name UE at side Side bilateral Equipment Used yellow therabar Reps/Minutes 30 sec each UE Manual Therapy Treatment Consent Patient gave verbal consent for manual Yes treatment Soft Tissue Mobilization post Body Location bilat post cuff, oxana scap, UT , levator scap Mobilization Type Cross-Friction,Rolling, Sustained Pressure Intensity/Depth Moderate Body Position Sidelying pec Body Location L major/minor & biceps right pec major and minor Mobilization Type Cross-Friction,Rolling Intensity/Depth Moderate Body Position Hooklying Comments w/med n glide Joint Mobilizations scapula Joint bilateral Direction adduction and depression Grade IV Body Position Sidelying Reps/Duration X10 each, each direction GH Joint bilateral shoulders Grade IV Reps/Duration X10 X 3 each Comments AP and post PT-OP-T Assessment and Plan Start: 05/03/24 10:09 Freq: Status: Active Protocol: Document 06/05/24 08:10 [facility] (Rec: 06/05/24 12:26 [facility] [id number]) Physical Therapy Assessment Goals activities Short Term Goal (STG) pt will be able to reach across body and put on jackets w/o inc pain. 05/30-L still hurts w/jackets but feels easier w/ROM, across body isn't too bad STG Duration 06/15 Assisted Goal (LTG) Pt will be able to do overhead activities, sleep on side and help as needed w/construction activities w/o inc pain greater than 2/10 05/30-neck bothers at night, soreness w/sleep on side LTG Duration 12 ROM Short Term Goal (STG) Pt will be able to reach behind his back w/IR to at least T8 to allow greater ease w/washing back. 05/30-improved STG Duration 06/15 Linux Engineer Goal (LTG) Pt will have at least 150 deg flex and abd w/o inc pain B in order to allow greater ease w /overhead activities. 05/30-improved LTG Duration 07/16 strength Short Term Goal (STG) Pt will be indep w/HEP STG Duration achieved advancing as able Linux Engineer Goal (LTG) Pt will score at least 4/5 on EFT and at least 4+/5 on all BUE MMT w/o inc pain to allow greater ease w/typical daily activities. 05/30-improved; EFT 3/5 LTG Duration 07/16 Assessment Summary Assessment Patient continues to move into scaption pattern with AROM abd left UE. Patient reports no pain end of session. Able to perform left sidelying without pain end ROM lowering post mini band, and pinching end ROM sidelying abd right eliminated with facilitation at scapula Physical Therapy Plan Frequency and Duration Frequency of Treatment 2x/Week Duration of treatment (weeks) 10 Plan of Care Start Date 05/07/24 Plan of Care End Date 07/16/24 Next Visit Focus/Plan Next Note Type Treatment Note Next Visit Plan work on abd strength and mobility, manual for dec pain and ROM possibly trial of wall push up plus
--- NOTE | 2024-06-11 13:02 | PT.OTN ---
Current Diagnoses Pain in unspecified shoulder (06/11/24) Abnormal posture (06/11/24) Weakness (06/11/24) Physical Therapy Treatment Note PT-OP-A Visit Information Start: 05/03/24 10:09 Freq: Status: Active Protocol: Document 06/11/24 08:07 [facility] (Rec: 06/11/24 13:02 [facility] [id number]) Out-Patient Physical Therapy Visit Information Visit Information Visit Type Treatment Note Visit Note 10/22 Access Code: [email or web address] Visit Start Time 09:14 Visit Stop Time 09:47 Visit Number 10 Number of MORNING NANNY Visits 2 PT-OP-B Current Condition Start: 05/03/24 10:09 Freq: Status: Active Protocol: Document 05/07/24 07:35 [facility] (Rec: 05/07/24 09:55 [facility] [id number]) Current Condition History of Current Condition Onset Date about 10 years. Current Complaints B shoulder pain History of Current Condition Pt has had L shoulder pain and stiffness that has been going on for about a decade. R shoulde rgives him trouble also but not as bad. Has done PT to L shoulder in past but it didn't work. Probably about 5 years ago but didn't help. Pain was gradual onset. Pt has hx of back pain and R knee pain. Pt reports he does have neck pain when sleeping and gets CANDELARIO. Does have some narrowing in the neck per pt. hx of accident in [place] where shattered his L elbow and had sx in [place] and it was redone here (2012) Treatment Goals Patient/Caregiver Goals improve mobility of shoudlers PT-OP-C Subjective Start: 05/03/24 10:09 Freq: Status: Active Protocol: Document 06/11/24 08:07 [facility] (Rec: 06/11/24 13:02 [facility] [id number]) OP-PT Subjective Patient Comments Patient Comments Patient reports he was a bad patient, did some eliz with his son. Patient reports neck doesn't hurt anymore. 130 deg scaption shifts into scaption pattern 93 deg abduction, PT-OP-J Posture/Palpation/Skin Start: 05/03/24 10:09 Freq: Status: Active Protocol: Document 05/07/24 07:35 [facility] (Rec: 05/07/24 09:55 [facility] [id number]) Posture Evaluation Kary Postural Classification System Kary Postural Classifications Posterior/Anterior Elbow Flexion Test 2 Comments Posture Comments B GHJ ant; R scap abd, trunk SB L PT-OP-K Range of Motion Start: 05/03/24 10:09 Freq: Status: Active Protocol: Document 05/30/24 07:31 [facility] (Rec: 05/30/24 08:19 [facility] [id number]) Shoulder Goniometric Range of Motion Shoulder Right Active Flexion 128 Extension 62 Abduction 149 External Rotation at 0 degrees Abduction 50 Internal Rotation Behind Back (text) T10 Comments goes towards scaption w/abd Left Active Flexion 146 Extension 56 Abduction 144 External Rotation at 0 degrees Abduction 56 Internal Rotation Behind Back (text) T9 Comments pain at end ranges w/all L>R PT-OP-L Special Tests Start: 05/03/24 10:09 Freq: Status: Active Protocol: Document 05/07/24 07:35 [facility] (Rec: 05/07/24 09:55 [facility] [id number]) Special Tests Shoulder Special Tests n tension Comments neg all biceps load Comments neg B crank Comments positive L w/IR [place] Test Comments positive B Speed's Biceps Comments neg B Neer Impingement Comments positive B Larsen Paul Impingement Comments positive R Empty Can Comments positive L PT-OP-M Strength Start: 05/03/24 10:09 Freq: Status: Active Protocol: Document 05/30/24 07:31 [facility] (Rec: 05/30/24 08:19 [facility] [id number]) Shoulder Strength Shoulder Manual Muscle Testing R Flexion 4+ Good+ Extension 5 Normal Abduction (C5) 4+ Good+ External Rotation 4- Good- Internal Rotation 5 Normal Horizontal Abduction 5 Normal Horizontal Adduction 5 Normal L Flexion 4 Good Extension 5 Normal Abduction (C5) 4 Good External Rotation 4- Good- Internal Rotation 5 Normal Horizontal Abduction 4 Good Horizontal Adduction 4+ Good+ PT-OP-Q Treatments Start: 05/03/24 10:09 Freq: Status: Active Protocol: Document 06/11/24 08:07 [facility] (Rec: 06/11/24 13:02 [facility] [id number]) Therapeutic Exercises Supine Exercises mini band Supine Exercise Name HEP Side bilateral Resistance level one band Reps/Minutes X10 Comments verbal cues Sidelying Exercises abd Sidelying Exercise Name 1. AROM Side bilateral Reps/Minutes X1 with pinching X 10 with fac at scap open book Side bilateral Reps/Minutes X5 Comments verbal cues to hold for 5 breaths Standing Exercises wall push up plus Standing Exercise Name HEP Reps/Minutes X10 Comments verbal and visual cues rhythmic oscillation Standing Exercise Name statue of [place] position Side right Equipment Used yellow therabar Comments 60 sec Manual Therapy Treatment Soft Tissue Mobilization thoracip paraspinals Body Location left Mobilization Type Sustained Pressure Intensity/Depth Moderate Body Position Sidelying post Body Location bilat post cuff, oxana scap, UT , levator scap Mobilization Type Cross-Friction,Rolling, Sustained Pressure Intensity/Depth Moderate Body Position Sidelying pec Body Location L major/minor & biceps right pec major and minor Mobilization Type Cross-Friction,Rolling Intensity/Depth Moderate Body Position Hooklying Comments w/med n glide Joint Mobilizations scapula Joint bilateral Direction adduction and depression Grade IV Body Position Sidelying Reps/Duration X10 each, each direction GH Joint bilateral shoulders Grade IV Reps/Duration X10 X 3 each Comments AP and post ribs Grade IV Comments caudal 1st and 2nd SC Joint L Direction inf Grade III Reps/Duration X10 AC Joint left Reps/Duration inf X 10 III PT-OP-T Assessment and Plan Start: 05/03/24 10:09 Freq: Status: Active Protocol: Document 06/11/24 08:07 [facility] (Rec: 06/11/24 13:02 [facility] [id number]) Physical Therapy Assessment Goals activities Short Term Goal (STG) pt will be able to reach across body and put on jackets w/o inc pain. 05/30-L still hurts w/jackets but feels easier w/ROM, across body isn't too bad STG Duration 06/15 Snf Goal (LTG) Pt will be able to do overhead activities, sleep on side and help as needed w/construction activities w/o inc pain greater than 2/10 05/30-neck bothers at night, soreness w/sleep on side LTG Duration 07/16 ROM Short Term Goal (STG) Pt will be able to reach behind his back w/IR to at least T8 to allow greater ease w/washing back. 05/30-improved STG Duration 06/15 Reporter Anchor Goal (LTG) Pt will have at least 150 deg flex and abd w/o inc pain B in order to allow greater ease w /overhead activities. 05/30-improved LTG Duration 07/16 strength Short Term Goal (STG) Pt will be indep w/HEP STG Duration achieved advancing as able Reporter Anchor Goal (LTG) Pt will score at least 4/5 on EFT and at least 4+/5 on all BUE MMT w/o inc pain to allow greater ease w/typical daily activities. 05/30-improved; EFT 3/5 LTG Duration 12 Assessment Summary Assessment AROM 124 deg left should flexion end of session. ROM and strength left shoulder continues to limited and increased stiffness left pec persists. Physical Therapy Plan Frequency and Duration Frequency of Treatment 2x/Week Duration of treatment (weeks) 10 Plan of Care Start Date 05/07/24 Plan of Care End Date 07/16/24 Next Visit Focus/Plan Next Note Type Treatment Note Next Visit Plan pec stretc/review scaption wall slide with lift off and lower work on abd strength and mobility, manual for dec pain and ROM
--- NOTE | 2024-06-27 10:23 | PT.OTN ---
Current Diagnoses Pain in unspecified shoulder (06/27/24) Abnormal posture (06/27/24) Weakness (06/27/24) Physical Therapy Treatment Note PT-OP-A Visit Information Start: 05/03/24 10:09 Freq: Status: Active Protocol: Document 06/27/24 09:02 [facility] (Rec: 06/27/24 10:23 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 (Rec: 05/07/24 09:55 [facility] [id number]) Current Condition History of Current Condition Onset Date about 10 years. Current Complaints B shoulder pain History of Current Condition Pt has had L shoulder pain and stiffness that has been going on for about a decade. R shoulde rgives him trouble also but not as bad. Has done PT to L shoulder in past but it didn't work. Probably about 5 years ago but didn't help. Pain was gradual onset. Pt has hx of back pain and R knee pain. Pt reports he does have neck pain when sleeping and gets CANDELARIO. Does have some narrowing in the neck per pt. hx of accident in [place] where shattered his L elbow and had sx in [place] and it was redone here (2012) Treatment Goals Patient/Caregiver Goals improve mobility of shoudlers PT-OP-C Subjective Start: 05/03/24 10:09 Freq: Status: Active Protocol: Document 06/27/24 09:02 [facility] (Rec: 06/27/24 10:23 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 Sees him again this week. Patient Reported Progress Improving PT-OP-J Posture/Palpation/Skin Start: 05/03/24 10:09 Freq: Status: Active Protocol: Document 05/07/24 07:35 [facility] (Rec: 05/07/24 09:55 [facility] [id number]) Posture Evaluation Kary Postural Classification System Kary Postural Classifications Posterior/Anterior Elbow Flexion Test 2 Comments Posture Comments B GHJ ant; R scap abd, trunk SB L PT-OP-K Range of Motion Start: 05/03/24 10:09 Freq: Status: Active Protocol: Document 06/27/24 09:02 [facility] (Rec: 06/27/24 10:23 [facility] [id number]) Shoulder Goniometric Range of Motion Shoulder Right Active Flexion 136 Extension 62 Abduction 160 External Rotation at 0 degrees Abduction 63 Internal Rotation Behind Back (text) T10 Comments goes towards scaption w/abd at end range Left Active Flexion 137 Extension 63 Abduction 154 External Rotation at 0 degrees Abduction 64 Internal Rotation Behind Back (text) T9 Comments pain at end ranges w/all L>R PT-OP-L Special Tests Start: 05/03/24 10:09 Freq: Status: Active Protocol: Document 05/07/24 07:35 [facility] (Rec: 05/07/24 09:55 [facility] [id number]) Special Tests Shoulder Special Tests n tension Comments neg all biceps load Comments neg B crank Comments positive L w/IR [place] Test Comments positive B Speed's Biceps Comments neg B Neer Impingement Comments positive B Larsen Paul Impingement Comments positive R Empty Can Comments positive L PT-OP-M Strength Start: 05/03/24 10:09 Freq: Status: Active Protocol: Document 06/27/24 09:02 [facility] (Rec: 06/27/24 10:23 [facility] [id number]) Shoulder Strength Shoulder Manual Muscle Testing R Flexion 5 Normal Extension 5 Normal Abduction (C5) 4+ Good+ External Rotation 4 Good Internal Rotation 5 Normal Horizontal Abduction 5 Normal Horizontal Adduction 5 Normal L Flexion 4+ Good+ Extension 5 Normal Abduction (C5) 4 Good External Rotation 4- Good- Internal Rotation 4+ Good+ Horizontal Abduction 3+ Fair+ Horizontal Adduction 5 Normal Comments pain Habd PT-OP-Q Treatments Start: 05/03/24 10:09 Freq: Status: Active Protocol: Document 06/27/24 09:02 [facility] (Rec: 06/27/24 10:23 [facility] [id number]) Therapeutic Exercises Supine Exercises foam roll Supine Exercise Name 1. Habd 2. flex Side bilateral Reps/Minutes 5 ea Standing Exercises flex Standing Exercise Name lift off wall Side bilateral Reps/Minutes 10 Comments cues no lumbar spine Other Exercises AROM Other Exercise Name shoulder AROM Side bilateral isometrics Other Exercise Name B UE MMT, EFT Side bilateral Manual Therapy Treatment Consent Patient gave verbal consent for manual Yes treatment Soft Tissue Mobilization inferior Comments B inf jt capsule, lats, teres w/flex superior Body Location R scalenes Mobilization Type Rolling Intensity/Depth Moderate Body Position Sidelying Comments w/scapdep pec Body Location B major/minor Mobilization Type Rolling,Sustained Pressure Comments w/overhead motion Joint Mobilizations GH Comments R inf glide c/r ribs Comments R lat rib 4, 6-8 , L lat rib 3 ,5-6 percussion R caudal 1st rib w/c/r cover postion L AC Comments R ant clavicle and post scap percussion PT-OP-T Assessment and Plan Start: 05/03/24 10:09 Freq: Status: Active Protocol: Document 06/27/24 09:02 [facility] (Rec: 06/27/24 10:23 [facility] [id number]) Physical Therapy Assessment Goals activities Short Term Goal (STG) pt will be able to reach across body and put on jackets w/o inc pain. 05/30-L still hurts w/jackets but feels easier w/ROM, across body isn't too bad 06/27-less pain dressing like jackets 11/22; no issues reach across body STG Duration 07/15 Senior Pastor Goal (LTG) Pt will be able to do overhead activities, sleep on side and help as needed w/construction activities w/o inc pain greater than 2/10 05/30-neck bothers at night, soreness w/sleep on side 06/27- no issues sleeping on side, still difficult w/ overhead activities, L side still painful w/construction, R not as bad 12/22 LTG Duration 08/30 ROM Short Term Goal (STG) Pt will be able to reach behind his back w/IR to at least T8 to allow greater ease w/washing back. 05/30-improved 06/27-no changes STG Duration 07/15 [facility] Goal (LTG) Pt will have at least 150 deg flex and abd w/o inc pain B in order to allow greater ease w /overhead activities. 05/30-improved 06/27-cont improvement LTG Duration 08/30 strength Short Term Goal (STG) Pt will be indep w/HEP STG Duration achieved advancing as able Senior Pastor Goal (LTG) Pt will score at least 4/5 on EFT and at least 4+/5 on all BUE MMT w/o inc pain to allow greater ease w/typical daily activities. 05/30-improved; EFT 3/5 06/27-improved, EFT 3/5 LTG Duration 08/30 Assessment Summary Assessment Improved B shoulder flex w/ manual today. He is improving w/B shoulder strength and ROM but still significantly limited that affets his ability to do ADLs. Cont PT to focus on this. Physical Therapy Plan Frequency and Duration Frequency of Treatment 1-2x/Week Duration of treatment (weeks) 8 Plan of Care Start Date 06/27/24 Plan of Care End Date 08/30/24 Therapeutic Interventions Therapeutic Interventions Gait Training,Home Exercise Program,Joint Mobilizations, Manual Therapy,Neuromuscular Re-education,Patient/Caregiver Education,Self-Care/Home Management,Soft Tissue Mobilization,Taping, Therapeutic Activities Modalities Cold Pack/Ice Massage,Electric Stimulation,Hot Packs, Infrared Therapy,Iontophoresis ,Ultrasound Next Visit Focus/Plan Next Note Type Treatment Note Next Visit Plan pec stretc/review scaption wall slide with lift off and lower work on abd strength and mobility, manual for dec pain and ROM
--- NOTE | 2024-06-27 10:23 | PT.OPPOC ---
Physical, Occupational & Speech Therapy At [facility] Current Diagnoses Pain in unspecified shoulder (06/27/24) Abnormal posture (06/27/24) Weakness (06/27/24) Visit Care Team Role Provider Type Cecy Dye ND Family Provider Non-Staff Specialty: Naturopathy Address: [address] [place] [address], [id number] Email: RADHA Flannery Attending Provider Non-Staff Primary Care Provider Referring Provider Specialty: Family Practice Address: [address] [place] [address], [id number] Email: Plan Of Care PT-OP-B Current Condition Start: 05/03/24 10:09 Freq: Status: Active Protocol: Document 05/07/24 07:35 [facility] (Rec: 05/07/24 09:55 [facility] [id number]) Current Condition History of Current Condition Onset Date about 10 years. Current Complaints B shoulder pain History of Current Condition Pt has had L shoulder pain and stiffness that has been going on for about a decade. R shoulde rgives him trouble also but not as bad. Has done PT to L shoulder in past but it didn't work. Probably about 5 years ago but didn't help. Pain was gradual onset. Pt has hx of back pain and R knee pain. Pt reports he does have neck pain when sleeping and gets CANDELARIO. Does have some narrowing in the neck per pt. hx of accident in [place] where shattered his L elbow and had sx in [place] and it was redone here (2013) Treatment Goals Patient/Caregiver Goals improve mobility of shoudlers PT-OP-T Assessment and Plan Start: 05/03/24 10:09 Freq: Status: Active Protocol: Document 06/27/24 09:02 [facility] (Rec: 06/27/24 10:23 [facility] [id number]) Physical Therapy Assessment Goals activities Short Term Goal (STG) pt will be able to reach across body and put on jackets w/o inc pain. 1016-L still hurts w/jackets but feels easier w/ROM, across body isn't too bad 11/13-less pain dressing like jackets 11/22; no issues reach across body STG Duration 07/15 Health Service Worker Goal (LTG) Pt will be able to do overhead activities, sleep on side and help as needed w/construction activities w/o inc pain greater than 2/10 05/30-neck bothers at night, soreness w/sleep on side 06/27- no issues sleeping on side, still difficult w/ overhead activities, L side still painful w/construction, R not as bad 12/22 LTG Duration 08/30 ROM Short Term Goal (STG) Pt will be able to reach behind his back w/IR to at least T8 to allow greater ease w/washing back. 05/30-improved 06/27-no changes STG Duration 07/15 Residential Goal (LTG) Pt will have at least 150 deg flex and abd w/o inc pain B in order to allow greater ease w /overhead activities. 05/30-improved 06/27-cont improvement LTG Duration 08/30 strength Short Term Goal (STG) Pt will be indep w/HEP STG Duration achieved advancing as able Health Service Worker Goal (LTG) Pt will score at least 4/5 on EFT and at least 4+/5 on all BUE MMT w/o inc pain to allow greater ease w/typical daily activities. 05/30-improved; EFT 3/5 06/27-improved, EFT 3/5 LTG Duration 08/30 Assessment Summary Assessment Improved B shoulder flex w/ manual today. He is improving w/B shoulder strength and ROM but still significantly limited that affets his ability to do ADLs. Cont PT to focus on this. Physical Therapy Plan Frequency and Duration Frequency of Treatment 1-2x/Week Duration of treatment (weeks) 8 Plan of Care Start Date 06/27/24 Plan of Care End Date 08/30/24 Therapeutic Interventions Therapeutic Interventions Gait Training,Home Exercise Program,Joint Mobilizations, Manual Therapy,Neuromuscular Re-education,Patient/Caregiver Education,Self-Care/Home Management,Soft Tissue Mobilization,Taping, Therapeutic Activities Modalities Cold Pack/Ice Massage,Electric Stimulation,Hot Packs, Infrared Therapy,Iontophoresis ,Ultrasound Next Visit Focus/Plan Next Note Type Treatment Note Next Visit Plan pec stretc/review scaption wall slide with lift off and lower work on abd strength and mobility, manual for dec pain and ROM Plan of Care Dates Plan of Care Start Date 06/27/24 Plan of Care End Date 08/30/24 Electronically Signed by: Amy Alanis, PT 06/27/24 1023 If you are in agreement with this Plan of Care, please return a signed and dated copy. I have reviewed this Plan of Care and certify that the skilled therapy services above are required to meet the patient?s needs. Physician Signature Date Printed Name and Credentials Clinical Instructor Signature Printed Name and Credentials
--- NOTE | 2024-07-04 11:55 | PT.OTN ---
Current Diagnoses Pain in unspecified shoulder (07/04/24) Abnormal posture (07/04/24) Weakness (07/04/24) Physical Therapy Treatment Note PT-OP-A Visit Information Start: 05/03/24 10:09 Freq: Status: Active Protocol: Document 07/04/24 08:19 [facility] (Rec: 07/04/24 11:55 [facility] [id number]) Out-Patient Physical Therapy Visit Information Visit Information Visit Type Treatment Note Visit Note 09/24 Access Code: [email or web address] Visit Start Time 08:18 Visit Stop Time 08:58 Visit Number 12 Number of BREAD BAKER Visits 0 PT-OP-B Current Condition Start: 05/03/24 10:09 Freq: Status: Active Protocol: Document 05/07/24 07:35 [facility] (Rec: 05/07/24 09:55 [facility] [id number]) Current Condition History of Current Condition Onset Date about 10 years. Current Complaints B shoulder pain History of Current Condition Pt has had L shoulder pain and stiffness that has been going on for about a decade. R shoulde rgives him trouble also but not as bad. Has done PT to L shoulder in past but it didn't work. Probably about 5 years ago but didn't help. Pain was gradual onset. Pt has hx of back pain and R knee pain. Pt reports he does have neck pain when sleeping and gets CANDELARIO. Does have some narrowing in the neck per pt. hx of accident in [place] where shattered his L elbow and had sx in [place] and it was redone here (2012) Treatment Goals Patient/Caregiver Goals improve mobility of shoudlers PT-OP-C Subjective Start: 05/03/24 10:09 Freq: Status: Active Protocol: Document 07/04/24 08:19 [facility] (Rec: 07/04/24 11:55 [facility] [id number]) OP-PT Subjective Patient Comments Patient Comments Pt did 1 hr 45 min mt biking and L ant shoulder was sore PT-OP-J Posture/Palpation/Skin Start: 05/03/24 10:09 Freq: Status: Active Protocol: Document 05/07/24 07:35 [facility] (Rec: 05/07/24 09:55 [facility] [id number]) Posture Evaluation Kary Postural Classification System Kary Postural Classifications Posterior/Anterior Elbow Flexion Test 2 Comments Posture Comments B GHJ ant; R scap abd, trunk SB L PT-OP-K Range of Motion Start: 05/03/24 10:09 Freq: Status: Active Protocol: Document 06/27/24 09:02 [facility] (Rec: 06/27/24 10:23 [facility] [id number]) Shoulder Goniometric Range of Motion Shoulder Right Active Flexion 136 Extension 62 Abduction 160 External Rotation at 0 degrees Abduction 63 Internal Rotation Behind Back (text) T10 Comments goes towards scaption w/abd at end range Left Active Flexion 137 Extension 63 Abduction 154 External Rotation at 0 degrees Abduction 64 Internal Rotation Behind Back (text) T9 Comments pain at end ranges w/all L>R PT-OP-L Special Tests Start: 05/03/24 10:09 Freq: Status: Active Protocol: Document 05/07/24 07:35 [facility] (Rec: 05/07/24 09:55 [facility] [id number]) Special Tests Shoulder Special Tests n tension Comments neg all biceps load Comments neg B crank Comments positive L w/IR Person Test Comments positive B Speed's Biceps Comments neg B Neer Impingement Comments positive B Larsen Paul Impingement Comments positive R Empty Can Comments positive L PT-OP-M Strength Start: 05/03/24 10:09 Freq: Status: Active Protocol: Document 06/27/24 09:02 [facility] (Rec: 06/27/24 10:23 [facility] [id number]) Shoulder Strength Shoulder Manual Muscle Testing R Flexion 5 Normal Extension 5 Normal Abduction (C5) 4+ Good+ External Rotation 4 Good Internal Rotation 5 Normal Horizontal Abduction 5 Normal Horizontal Adduction 5 Normal L Flexion 4+ Good+ Extension 5 Normal Abduction (C5) 4 Good External Rotation 4- Good- Internal Rotation 4+ Good+ Horizontal Abduction 3+ Fair+ Horizontal Adduction 5 Normal Comments pain Habd PT-OP-Q Treatments Start: 05/03/24 10:09 Freq: Status: Active Protocol: Document 07/04/24 08:19 [facility] (Rec: 07/04/24 11:55 [facility] [id number]) Therapeutic Exercises Standing Exercises rotation Standing Exercise Name plank on wall single UE w/rot Side bilateral Reps/Minutes 10 Other Exercises planks Other Exercise Name 1. at chair ht table hold 2. at about 30 in w/alt opp shoulder taps Reps/Minutes 1.2x30 sec 2. 12 Comments cues neck and scap position Manual Therapy Treatment Consent Patient gave verbal consent for manual Yes treatment Soft Tissue Mobilization superior Body Location L UT, LS Mobilization Type Rolling Intensity/Depth Moderate Body Position Sidelying Comments w/scapdep pec Body Location L major/minor & biceps Mobilization Type Rolling,Sustained Pressure Comments w/rotation and abd Joint Mobilizations GH Comments L post glide ; inf glide w/ flex c/r AC Comments R ant clavicle and post scap percussion PT-OP-T Assessment and Plan Start: 05/03/24 10:09 Freq: Status: Active Protocol: Document 07/04/24 08:19 [facility] (Rec: 07/04/24 11:55 [facility] [id number]) Physical Therapy Assessment Goals activities Short Term Goal (STG) pt will be able to reach across body and put on jackets w/o inc pain. 05/30-L still hurts w/jackets but feels easier w/ROM, across body isn't too bad 06/27-less pain dressing like jackets 11/22; no issues reach across body STG Duration 07/15 Group Home Goal (LTG) Pt will be able to do overhead activities, sleep on side and help as needed w/construction activities w/o inc pain greater than 2/10 05/30-neck bothers at night, soreness w/sleep on side 06/27- no issues sleeping on side, still difficult w/ overhead activities, L side still painful w/construction, R not as bad 12/22 LTG Duration 08/30 ROM Short Term Goal (STG) Pt will be able to reach behind his back w/IR to at least T8 to allow greater ease w/washing back. 05/30-improved 06/27-no changes STG Duration 07/15 Group Home Goal (LTG) Pt will have at least 150 deg flex and abd w/o inc pain B in order to allow greater ease w /overhead activities. 05/30-improved 06/27-cont improvement LTG Duration 08/30 strength Short Term Goal (STG) Pt will be indep w/HEP STG Duration achieved advancing as able [employer] Goal (LTG) Pt will score at least 4/5 on EFT and at least 4+/5 on all BUE MMT w/o inc pain to allow greater ease w/typical daily activities. 05/30-improved; EFT 3/5 06/27-improved, EFT 3 LTG Duration 08/30 Assessment Summary Assessment Pt had improved L shoulder flex, ER at 90 deg abd and passive abd after manual. more difficulty w/all WB activites today on LUE Physical Therapy Plan Frequency and Duration Frequency of Treatment 1-2x/Week Duration of treatment (weeks) 8 Plan of Care Start Date 06/27/24 Plan of Care End Date 08/30/24 Next Visit Focus/Plan Next Note Type Treatment Note Next Visit Plan cont to work on WB stability and work on manual to improve ROM and dec pain
--- NOTE | 2024-07-18 09:06 | PT.OTN ---
Current Diagnoses Pain in unspecified shoulder (07/18/24) Abnormal posture (07/18/24) Weakness (07/18/24) Physical Therapy Treatment Note PT-OP-A Visit Information Start: 05/03/24 10:09 Freq: Status: Active Protocol: Document 07/18/24 08:21 [facility] (Rec: 07/18/24 09:06 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 (Rec: 05/07/24 09:55 [facility] [id number]) Current Condition History of Current Condition Onset Date about 10 years. Current Complaints B shoulder pain History of Current Condition Pt has had L shoulder pain and stiffness that has been going on for about a decade. R shoulde rgives him trouble also but not as bad. Has done PT to L shoulder in past but it didn't work. Probably about 5 years ago but didn't help. Pain was gradual onset. Pt has hx of back pain and R knee pain. Pt reports he does have neck pain when sleeping and gets CANDELARIO. Does have some narrowing in the neck per pt. hx of accident in [place] where shattered his L elbow and had sx in [place] and it was redone here (2012) Treatment Goals Patient/Caregiver Goals improve mobility of shoudlers PT-OP-C Subjective Start: 05/03/24 10:09 Freq: Status: Active Protocol: Document 07/18/24 08:21 [facility] (Rec: 07/18/24 09:06 [facility] [id number]) OP-PT Subjective Patient Comments Patient Comments Pt reports wondering if overdoing at the gym. Noticing some soreness when working out. PT-OP-J Posture/Palpation/Skin Start: 05/03/24 10:09 Freq: Status: Active Protocol: Document 05/07/24 07:35 [facility] (Rec: 05/07/24 09:55 [facility] [id number]) Posture Evaluation Kary Postural Classification System Kary Postural Classifications Posterior/Anterior Elbow Flexion Test 2 Comments Posture Comments B GHJ ant; R scap abd, trunk SB L PT-OP-K Range of Motion Start: 05/03/24 10:09 Freq: Status: Active Protocol: Document 06/27/24 09:02 [facility] (Rec: 06/27/24 10:23 [facility] [id number]) Shoulder Goniometric Range of Motion Shoulder Right Active Flexion 136 Extension 62 Abduction 160 External Rotation at 0 degrees Abduction 63 Internal Rotation Behind Back (text) T10 Comments goes towards scaption w/abd at end range Left Active Flexion 137 Extension 63 Abduction 154 External Rotation at 0 degrees Abduction 64 Internal Rotation Behind Back (text) T9 Comments pain at end ranges w/all L>R PT-OP-L Special Tests Start: 05/03/24 10:09 Freq: Status: Active Protocol: Document 05/07/24 07:35 [facility] (Rec: 05/07/24 09:55 [facility] [id number]) Special Tests Shoulder Special Tests n tension Comments neg all biceps load Comments neg B crank Comments positive L w/IR [place] Test Comments positive B Speed's Biceps Comments neg B Neer Impingement Comments positive B Larsen Paul Impingement Comments positive R Empty Can Comments positive L PT-OP-M Strength Start: 05/03/24 10:09 Freq: Status: Active Protocol: Document 06/27/24 09:02 [facility] (Rec: 06/27/24 10:23 [facility] [id number]) Shoulder Strength Shoulder Manual Muscle Testing R Flexion 5 Normal Extension 5 Normal Abduction (C5) 4+ Good+ External Rotation 4 Good Internal Rotation 5 Normal Horizontal Abduction 5 Normal Horizontal Adduction 5 Normal L Flexion 4+ Good+ Extension 5 Normal Abduction (C5) 4 Good External Rotation 4- Good- Internal Rotation 4+ Good+ Horizontal Abduction 3+ Fair+ Horizontal Adduction 5 Normal Comments pain Habd PT-OP-Q Treatments Start: 05/03/24 10:09 Freq: Status: Active Protocol: Document 07/18/24 08:21 [facility] (Rec: 07/18/24 09:06 [facility] [id number]) Gym Equipment Cable Column (Body Solid) flys Details reverse (2 plates) x10; fly (3 plates) x10 Reps/Time cues scap Lat Pull Down Resistance 6 Reps/Time cues scap x10 Therapeutic Exercises Sidelying Exercises sideplank Sidelying Exercise Name forearm and knees Side bilateral Reps/Minutes 2x15 sec Comments inc time for set up Manual Therapy Treatment Consent Patient gave verbal consent for manual Yes treatment Soft Tissue Mobilization UE Body Location L biceps Mobilization Type Myofascial Release,Rolling superior Body Location L UT, LS Mobilization Type Rolling Intensity/Depth Moderate pec Body Location L major/minor & biceps Mobilization Type Rolling,Sustained Pressure Comments w/rotation and abd Joint Mobilizations GH Comments L post and inf c/r AC Comments R ant clavicle and post scap c /r PT-OP-T Assessment and Plan Start: 05/03/24 10:09 Freq: Status: Active Protocol: Document 07/18/24 08:21 [facility] (Rec: 07/18/24 09:06 [facility] [id number]) Physical Therapy Assessment Goals activities Short Term Goal (STG) pt will be able to reach across body and put on jackets w/o inc pain. 05/30-L still hurts w/jackets but feels easier w/ROM, across body isn't too bad 06/27-less pain dressing like jackets 11/22; no issues reach across body STG Duration 07/15 Senior Living Goal (LTG) Pt will be able to do overhead activities, sleep on side and help as needed w/construction activities w/o inc pain greater than 2/10 05/30-neck bothers at night, soreness w/sleep on side 06/27- no issues sleeping on side, still difficult w/ overhead activities, L side still painful w/construction, R not as bad 12/22 LTG Duration 08/30 ROM Short Term Goal (STG) Pt will be able to reach behind his back w/IR to at least T8 to allow greater ease w/washing back. 05/30-improved 06/27-no changes STG Duration 07/15 Clerk Goal (LTG) Pt will have at least 150 deg flex and abd w/o inc pain B in order to allow greater ease w /overhead activities. 05/30-improved 06/27-cont improvement LTG Duration 08/30 strength Short Term Goal (STG) Pt will be indep w/HEP STG Duration achieved advancing as able Senior Living Goal (LTG) Pt will score at least 4/5 on EFT and at least 4+/5 on all BUE MMT w/o inc pain to allow greater ease w/typical daily activities. 05/30-improved; EFT 306/27-improved, EFT 10/17 LTG Duration 08/30 Assessment Summary Assessment Pt is making progress with ROM and mobility but cont pain that is limiting so did discuss pt to consider seeing sports med for consideration of imaging/injections if appropriate. Pt cued w/ exercises and understands. Physical Therapy Plan Frequency and Duration Frequency of Treatment 1-2x/Week Duration of treatment (weeks) 8 Plan of Care Start Date 06/27/24 Plan of Care End Date 08/30/24 Next Visit Focus/Plan Next Note Type Treatment Note Next Visit Plan possible DC. Pt to work on own and reach out to PT if feels like needs to return
--- NOTE | 2024-09-17 14:58 | PT.OPDS ---
Current Diagnoses Pain in unspecified shoulder (07/18/24) Abnormal posture (07/18/24) Weakness (07/18/24) Visit Care Team Role Provider Type Cecy yDe ND Family Provider Non-Staff Specialty: Naturopathy Address: [address] [place] [address], [id number] Email: RADHA Flannery Attending Provider Non-Staff Primary Care Provider Referring Provider Specialty: Family Practice Address: [address] [place] [address], [id number] Email: Visit Number Visit Number 13 Discharge Summary PT-OP-B Current Condition Start: 05/03/24 10:09 Freq: Status: Active Protocol: Document 05/07/24 07:35 [facility] (Rec: 05/07/24 09:55 [facility] [id number]) Current Condition History of Current Condition Onset Date about 10 years. Current Complaints B shoulder pain History of Current Condition Pt has had L shoulder pain and stiffness that has been going on for about a decade. R shoulde rgives him trouble also but not as bad. Has done PT to L shoulder in past but it didn't work. Probably about 5 years ago but didn't help. Pain was gradual onset. Pt has hx of back pain and R knee pain. Pt reports he does have neck pain when sleeping and gets CANDELARIO. Does have some narrowing in the neck per pt. hx of accident in [place] where shattered his L elbow and had sx in [place] and it was redone here (2013) Treatment Goals Patient/Caregiver Goals improve mobility of shoudlers PT-OP-C Subjective Start: 05/03/24 10:09 Freq: Status: Active Protocol: Document 07/18/24 08:21 [facility] (Rec: 07/18/24 09:06 [facility] [id number]) OP-PT Subjective Patient Comments Patient Comments Pt reports wondering if overdoing at the gym. Noticing some soreness when working out. PT-OP-J Posture/Palpation/Skin Start: 05/03/24 10:09 Freq: Status: Active Protocol: Document 05/07/24 07:35 [facility] (Rec: 05/07/24 09:55 [facility] [id number]) Posture Evaluation [facility] Postural Classification System [facility] Postural Classifications Posterior/Anterior Elbow Flexion Test 2 Comments Posture Comments B GHJ ant; R scap abd, trunk SB L PT-OP-K Range of Motion Start: 05/03/24 10:09 Freq: Status: Active Protocol: Document 06/27/24 09:02 [facility] (Rec: 06/27/24 10:23 [facility] [id number]) Shoulder Goniometric Range of Motion Shoulder Right Active Flexion 136 Extension 62 Abduction 160 External Rotation at 0 degrees Abduction 63 Internal Rotation Behind Back (text) T10 Comments goes towards scaption w/abd at end range Left Active Flexion 137 Extension 63 Abduction 154 External Rotation at 0 degrees Abduction 64 Internal Rotation Behind Back (text) T9 Comments pain at end ranges w/all L>R PT-OP-L Special Tests Start: 05/03/24 10:09 Freq: Status: Active Protocol: Document 05/07/24 07:35 [facility] (Rec: 05/07/24 09:55 [facility] [id number]) Special Tests Shoulder Special Tests n tension Comments neg all biceps load Comments neg B crank Comments positive L w/IR Rich Test Comments positive B Speed's Biceps Comments neg B Neer Impingement Comments positive B Larsen Paul Impingement Comments positive R Empty Can Comments positive L PT-OP-M Strength Start: 05/03/24 10:09 Freq: Status: Active Protocol: Document 06/27/24 09:02 [facility] (Rec: 06/27/24 10:23 [facility] [id number]) Shoulder Strength Shoulder Manual Muscle Testing R Flexion 5 Normal Extension 5 Normal Abduction (C5) 4+ Good+ External Rotation 4 Good Internal Rotation 5 Normal Horizontal Abduction 5 Normal Horizontal Adduction 5 Normal L Flexion 4+ Good+ Extension 5 Normal Abduction (C5) 4 Good External Rotation 4- Good- Internal Rotation 4+ Good+ Horizontal Abduction 3+ Fair+ Horizontal Adduction 5 Normal Comments pain Habd PT-OP-T Assessment and Plan Start: 05/03/24 10:09 Freq: Status: Active Protocol: Document 09/17/24 14:57 [facility] (Rec: 09/17/24 14:58 [facility] [id number]) Physical Therapy Assessment Goals activities Short Term Goal (STG) pt will be able to reach across body and put on jackets w/o inc pain. 10-L still hurts w/jackets but feels easier w/ROM, across body isn't too bad 06/27-less pain dressing like jackets 11/22; no issues reach across body STG Duration 07/15 Fdc Goal (LTG) Pt will be able to do overhead activities, sleep on side and help as needed w/construction activities w/o inc pain greater than 2/10 05/30-neck bothers at night, soreness w/sleep on side 06/27- no issues sleeping on side, still difficult w/ overhead activities, L side still painful w/construction, R not as bad 12/22 LTG Duration 08/30 ROM Short Term Goal (STG) Pt will be able to reach behind his back w/IR to at least T8 to allow greater ease w/washing back. 05/30-improved 06/27-no changes STG Duration 07/15 Bar Helper Goal (LTG) Pt will have at least 150 deg flex and abd w/o inc pain B in order to allow greater ease w /overhead activities. 05/30-improved 06/27-cont improvement LTG Duration 08/30 strength Short Term Goal (STG) Pt will be indep w/HEP STG Duration achieved advancing as able Fdc Goal (LTG) Pt will score at least 4/5 on EFT and at least 4+/5 on all BUE MMT w/o inc pain to allow greater ease w/typical daily activities. 05/30-improved; EFT 3/5 06/27-improved, EFT 3/5 LTG Duration 08/30 Assessment Summary Assessment Pt has not been seen in 2 months and was indep w/HEP at last visit. he had made progress w/B shoulder pain but still having pain and some limited ROM and weakness at last visit. Pt planned to work on strength on his own and call for more visits if needed . DC d/t no longer attending PT. Physical Therapy Plan Discharge Physical Therapy Discharge Reasons No Longer Attending PT
== END 2024-09-19 12:55 | disposition home or self-care (01) ==
LOC: PHYS 08:15
PROVIDERS: Family Provider Naturopath; PCP Nurse Practitioner Family; Referring Provider Nurse Practitioner Family; Visit Provider Nurse Practitioner Family
DX: M25.519 Pain in unspecified shoulder (principal); R29.3 Abnormal posture; R53.1 Weakness
CPT/HCPCS: 97110; 97140; 97162